=== PATIENT | male | born 1950 | race Caucasian/White ===

== ENCOUNTER 2019-01-12 18:14 | Inpatient (IN) | payer MEDICARE, MEDICAID ==
[~2019-01-12] VITALS: Ht 177.8 cm; Wt 92.5 kg
[~2019-01-12 18:14] MED LIST: AZIT250T PO; LEVO500T80 PO; NYST1000 PO; PRD20T PO
--- OUTSIDE RECORDS SUMMARY | 2019-01-12 18:20 | XMS REPORT ---
Author Author AARON MRA Organization [facility] [address] Address [address] [place] [address] Care Team Providers Care Contract Processor Name Role Phone AARON MAR Unavailable PROBLEMS Type Condition ICD9-CM Code [id number] Code Onset Dates Condition Status SNOMED Code Problem Essential hypertension I10 Active 13358364 Problem COPD mixed type J44.9 Active 26732562 ALLERGIES No Information ENCOUNTERS Encounter Location Date Diagnosis [facility] [address] [place] [phone] Jun, [facility] [address] [place] [phone] Jun, Essential hypertension I10 ; COPD mixed type J44.9 and Encounter for immunization Z23 [facility] [address] [place] [phone] Apr, Dental examination Z01.20 [facility] [address] [place] [phone] January, [facility] [address] [place] [phone] January, Dental examination Z01.20 [facility] [address] [place] [phone] Dec, Dental examination Z01.20 [facility] [address] [place] [phone] Dec, Dental examination Z01.20 [facility] [address] [place] [phone] Dec, Dental examination Z01.20 [facility] [address] [place] [phone] Dec, Dental examination Z01.20 [facility] [address] [place] [phone] Dec, Dental examination Z01.20 and Dental caries on pit and fissure surface penetrating into pulp K02.53 IMMUNIZATIONS No Known Immunizations SOCIAL HISTORY Never Assessed REASON FOR VISIT PLAN OF CARE VITAL SIGNS MEDICATIONS Unknown Medications RESULTS No Results PROCEDURES No Known procedures INSTRUCTIONS MEDICATIONS ADMINISTERED No Known Medications MEDICAL (GENERAL) HISTORY Type Description Date Medical History high blood pressure Medical History diabetes type 2 - past condition and not medicated for Medical History emphysema Medical History COPD Medical History Asthma-As a child Medical History Pneumonia in last 5 years Medical History Heart murmur Surgical History No Surgical history information Hospitalization History Pneumonia november 2015 Hospitalization History [facility] 2 weekss ago copd was acting up, signs of a heart attack ekg came back good. 2018
--- OUTSIDE RECORDS SUMMARY | 2019-01-12 18:20 | XMS REPORT ---
Author Author AARON MAR Organization [facility] [address] Address [address] [place] [address] Care Team Providers Care Anchorman Name Role Phone AARON MAR Unavailable PROBLEMS Type Condition ICD9-CM Code [id number] Code Onset Dates Condition Status SNOMED Code Problem Essential hypertension I10 Active 13004096 Problem COPD mixed type J44.9 Active 70144603 ALLERGIES Substance Reaction Event Type Date Status Iodine Unknown Drug Allergy Jun, Active ENCOUNTERS Encounter Location Date Diagnosis [facility] [address] [place] [phone] Jun, [facility] [address] [place] [phone] Jun, Essential hypertension I10 ; COPD mixed type J44.9 and Encounter for immunization Z23 [facility] [address] [place] [phone] Apr, Dental examination Z01.20 [facility] [address] [place] [phone] January, [facility] [address] [place] [phone] January, Dental examination Z01.20 [facility] [address] [place] [phone] Dec, [facility] [place] [address] [place] [phone] Dec, [facility]20 [facility] [address] [place] [phone] Dec, Dental examination Z01.20 [facility] [address] [place] [phone] Dec, Dental examination Z01.20 [facility] [address] [place] [phone] Dec, Dental examination Z01.20 and Dental caries on pit and fissure surface penetrating into pulp K02.53 IMMUNIZATIONS Vaccine Route Administration Date Status FLULAVAL QUAD 0.5ML (6 MO & UP) 2017 IM Intramuscular Jul 18, 2018 Administered SOCIAL HISTORY Never Assessed REASON FOR VISIT [facility], [facility] PLAN OF CARE Activity Details Follow Up prn Reason: VITAL SIGNS Weight 155.5 lbs 2018-07-18 Temperature 98.0 degrees Fahrenheit 2018-07-18 Heart Rate 89 bpm 2018-07-18 Respiratory Rate 20 2018-07-18 Blood pressure systolic 144 mmHg 2018-07-18 Blood pressure diastolic 92 mmHg 2018-07-18 MEDICATIONS Medication Instructions Dosage Frequency Start Date End Date Duration Status Magic Mouthwash Apply medicated swab to sore areas of the mouth to numb the pain As needed Dip cotton swab into medication Apr, As needed Not-Taking Aspirin Active Lisinopril Active Zithromax Z-Regino 2 L/NC Orally Once a day 2 tabs day one and then one tab daily for 4 more days 24h Jun, Jun, 5 day(s) Active Advair HFA Active Pantoprazole Sodium Active PredniSONE 20 mg Orally Once a day 2 tablets 24h Jun, Jun, 5 days Active Hampton 7.5-325 MG Orally every 6 hrs 1 tablet as needed 6h Apr, Active Digoxin Not-Taking Amoxicillin 500 MG Orally 4 times a day 2 capsules stat and then take 1 capsule 6h 10 days Not-Taking Ipratropium-Albuterol Active Combivent Respimat Active Atenolol Active RESULTS No Results PROCEDURES Procedure Date Ordered Result Body Site FLULAVAL QUAD 0.5ML (6 MO & UP) 2018 Jul 18, 2018 [facility] FLU VAC NO FEE SCHED SAME DAY Jul 18, 2018 [facility] VISIT NEW PATIENT Jul 18, 2018 SINGLE IMMUNIZATION ADMIN Jul 18, 2018 INSTRUCTIONS MEDICATIONS ADMINISTERED No Known Medications MEDICAL [...] a heart attack ekg came back good. 2017
--- OUTSIDE RECORDS SUMMARY | 2019-01-12 18:20 | XMS REPORT ---
Author Author BILLY HUERTAS [facility] [address] Address [address] [place] [address] Care Team Providers Care Geometry Teacher Name Role Phone BILLY HUERTAS Unavailable PROBLEMS Unknown Problems ALLERGIES ENCOUNTERS IMMUNIZATIONS No Known Immunizations SOCIAL HISTORY No smoking Hx information available REASON FOR VISIT PLAN OF CARE VITAL SIGNS MEDICATIONS RESULTS No Results PROCEDURES INSTRUCTIONS MEDICATIONS ADMINISTERED No Known Medications MEDICAL (GENERAL) HISTORY
--- OUTSIDE RECORDS SUMMARY | 2019-01-12 18:20 | XMS REPORT ---
Author Author AARON MAR Organization [facility] [address] Address [address] [place] [address] Care Team Providers Care Therapeutic Radiologist Name Role Phone AARON MAR Unavailable PROBLEMS Type Condition ICD9-CM Code [id number] Code Onset Dates Condition Status SNOMED Code Problem Panic attacks F41.0 Active 023652829 Problem COPD mixed type J44.9 Active 88487457 Problem Essential hypertension I10 Active 74254478 ALLERGIES No Information ENCOUNTERS Encounter Location Date Diagnosis [facility] [address] [place] [address] [place] [phone] Sep, [facility] [address] [place] [phone] Aug, Panic attacks F41.0 and Essential hypertension I10 [facility] [address] [place] [address] [place] [phone] Aug, [facility] [address] [place] [phone] Jul, [facility] [address] [place] [phone] Jun, [facility] [address] [place] [phone] Jun, Essential hypertension I10 ; COPD mixed type J44.9 and Encounter for immunization Z23 [facility] [address] [place] [address] [place] [phone] Apr, Dental examination Z01.20 [facility] [place] [address] [place] [phone] January, [facility] [place] [address] [place] [phone] January, Dental examination Z01.20 [facility] [place] [address] [place] [phone] Dec, Dental examination Z01.20 [facility] [place] [address] [place] [address] Dec, Dental examination Z01.20 [facility] [address] [place] [address] Dec, Dental examination Z01.20 [facility] [address] [place] [address] Dec, Dental examination Z01.20 [facility] [address] [place] [address] Dec, Dental examination Z01.20 and Dental caries on pit and fissure surface penetrating into pulp K02.53 IMMUNIZATIONS No Known Immunizations SOCIAL HISTORY Never Assessed REASON FOR VISIT Medication question PLAN OF CARE VITAL SIGNS MEDICATIONS Unknown [...]
--- OUTSIDE RECORDS SUMMARY | 2019-01-12 18:20 | XMS REPORT ---
Author Author AARON MAR Organization [facility] [address] Address [address] [place] [address] Care Team Providers Care Civil Structural Designer Name Role Phone AARON MAR Unavailable PROBLEMS Type Condition ICD9-CM Code OAX29-IS Code Onset Dates Condition Status SNOMED Code Problem Essential hypertension I10 Active 45145909 Problem COPD mixed type J44.9 Active 95117632 ALLERGIES No Information ENCOUNTERS Encounter Location Date Diagnosis [facility] [address] [place] [phone] Aug, [facility] [address] [place] [phone] Jul, [facility] [address] [place] [phone] Jun, [facility] [address] [place] [phone] Jun, Essential hypertension I10 ; COPD mixed type J44.9 and Encounter for [facility] Z[facility] [address] [place] [phone] Apr, Dental examination Z01.20 [facility] [address] [place] [phone] January, [facility] [address] [place] [phone] January, Dental examination Z01.20 [facility] [address] [place] [phone] Dec, Dental examination Z01.20 [facility] [address] [place] [phone] Dec, Dental examination Z01.20 [facility] [address] [place] [phone] Dec, Dental examination Z01.20 [facility] [address] [place] [phone] Dec, Dental examination Z01.20 [facility] [place] [address] [place] [address] Dec, Dental examination Z01.20 and Dental caries on pit and fissure surface penetrating into pulp K02.53 IMMUNIZATIONS No Known Immunizations SOCIAL HISTORY Never Assessed REASON FOR VISIT medication request PLAN OF CARE VITAL SIGNS MEDICATIONS Medication Instructions Dosage Frequency Start Date End Date Duration Status Aspirin Active Atenolol Active Pantoprazole Sodium Active Ipratropium-Albuterol Active Magic Mouthwash Apply medicated swab to sore areas of the mouth to numb the pain As needed Dip cotton swab into medication Apr, As needed Not-Taking Bolivar 7.5-325 MG Orally every 6 hrs 1 tablet as needed 6h Apr, Active Combivent Respimat Active Advair HFA Active Lisinopril Active Azithromycin 250 MG TAKE 2 TABLETS BY MOUTH ON DAY 1, THEN TAKE 1 TABLET DAILY BY MOUTH FOR 4 DAYS. 5 Active Amoxicillin 500 MG Orally 4 times a day 2 capsules stat and then take 1 capsule 6h 10 days Not-Taking Prozac 20 MG Orally Once a day 1 capsule 24h Jul, 30 day(s) Active Digoxin Not-Taking RESULTS No Results PROCEDURES No Known procedures [...]
--- OUTSIDE RECORDS SUMMARY | 2019-01-12 18:20 | XMS REPORT ---
Author Author AARON MAR Organization [facility] [address] Address [address] [place] [address] Care Team Providers Care Alterations Supervisor Name Role Phone AARON MAR Unavailable PROBLEMS Type Condition ICD9-CM Code [id number]-EH Code Onset Dates Condition Status SNOMED Code Problem Panic attacks F41.0 Active 246363636 Problem COPD mixed type J44.9 Active 55818899 Problem Essential hypertension I10 Active 02546061 ALLERGIES No Information ENCOUNTERS Encounter Location Date Diagnosis [facility] [address] [place] [phone] Sep, [facility] [address] [facility] [id number] [address] Aug, [facility] [address] [place] [phone] Aug, Panic attacks F41.0 and Essential hypertension I10 [facility] [address] [place] [phone] Aug, [facility] [address] [place] [phone] Jul, [facility] [address] [place] [phone] Jun, [facility] [address] [place] [phone] Jun, Essential hypertension I10 ; COPD mixed type J44.9 and Encounter for immunization Z23 [facility] [address] [place] [phone] Apr, Dental examination Z01.20 [facility] [address] [place] [phone] January, [facility] [address] [place] [phone] January, Dental examination Z01.20 [facility] [address] [place] [address] Dec, Dental examination Z01.20 [facility] [address] [place] [address] Dec, Dental examination Z01.20 [facility] [address] [place] [address] Dec, Dental examination Z01.20 [facility] [address] [place] [address] Dec, Dental examination Z01.20 [facility] [address] [place] [address] Dec, Dental examination Z01.20 and Dental caries on pit and fissure surface penetrating into pulp K02.53 IMMUNIZATIONS No Known Immunizations SOCIAL HISTORY Never Assessed REASON FOR VISIT Requests return call PLAN OF CARE VITAL SIGNS MEDICATIONS Unknown [...]
--- OUTSIDE RECORDS SUMMARY | 2019-01-12 18:21 | XMS REPORT ---
Author Author BILLY HUERTAS Organization [facility] Address [address] [place] [address] Care Team Providers Care Lard Refiner Name Role Phone BILLY HUERTAS Unavailable PROBLEMS Unknown Problems ALLERGIES No Information ENCOUNTERS Encounter Location Date Diagnosis [facility] [address] [place] [phone] January, [address] [address] January, Dental examination Z01.20 [facility] [address] [place] [phone] Dec, Dental examination Z01.[address] [address] Dec, Dental examination Z01.20 [facility] [address] [place] [phone] Dec, Dental examination Z01.[address] [address] Dec, Dental examination Z01.[address] [address] Dec, Dental examination Z01.20 and Dental caries on pit and fissure surface penetrating into pulp K02.53 IMMUNIZATIONS No Known Immunizations SOCIAL HISTORY Never Assessed REASON FOR VISIT PLAN OF CARE VITAL SIGNS MEDICATIONS Medication Instructions Dosage Frequency Start Date End Date Duration Status Amoxicillin 500 MG Orally 4 times a day 2 capsules stat and then take 1 capsule 6h 10 days Active RESULTS No Results PROCEDURES No Known procedures INSTRUCTIONS MEDICATIONS ADMINISTERED No Known Medications MEDICAL (GENERAL) HISTORY Type Description Date Medical History high blood pressure Medical History diabetes type 2 - past condition and not medicated for Medical History emphysema Medical History COPD Medical History Asthma-As a child Medical History Pneumonia in last 5 years Medical History Heart murmur Hospitalization History Pneumonia november 2015
--- OUTSIDE RECORDS SUMMARY | 2019-01-12 18:21 | XMS REPORT ---
Author Author AARTI LU [facility] Address [address] [place] [address] Care Team Providers Care Talent Development Coordinator Name Role Phone LU BROUSSARD Unavailable PROBLEMS Unknown Problems ALLERGIES Substance Reaction Event Type Date Status Iodine Unknown Drug Allergy January, Active ENCOUNTERS Encounter Location Date Diagnosis [address] [phone] January, [address] [address] January, Dental examination Z01.[address] [address] Dec, Dental examination Z01.[address] [address] Dec, Dental examination Z01.[address] [address] Dec, Dental examination Z01.[address] [address] Dec, Dental examination Z01.[address] [address] Dec, Dental examination Z01.20 and Dental caries on pit and fissure surface penetrating into pulp K02.53 IMMUNIZATIONS No Known Immunizations SOCIAL HISTORY Never Assessed REASON FOR VISIT [facility] PLAN OF CARE Activity Details Follow Up 1 hour multiple extractions (left side or right) Reason: VITAL SIGNS Blood pressure systolic 122 mmHg 2018-02-13 Blood pressure diastolic 85 mmHg 2018-02-13 MEDICATIONS Medication Instructions Dosage Frequency Start Date End Date Duration Status Atenolol Active Digoxin Active Advair HFA Active Combivent Respimat Active Pantoprazole Sodium Active Ipratropium-Albuterol Active Aspirin Active Lisinopril Active RESULTS No Results PROCEDURES Procedure Date Ordered Result Body Site COMP ORAL EVALUATION - NEW/EST PT February 13, 2018 PANORAMIC FILM SEE ALSO CODE [id number] February 13, 2018 INSTRUCTIONS MEDICATIONS ADMINISTERED No Known Medications [...]
[2019-01-12 19:20] LABS: BASOPHILS % (AUTO) 0 % (0-10); EOSINOPHILS # (AUTO) 0.1 10^3/uL (0.0-0.3); EOSINOPHILS % (AUTO) 1 % (0-10); HEMATOCRIT 49 % (40-54); HEMOGLOBIN 15.4 G/DL (13.3-17.7); LYMPHOCYTES # (AUTO) 1.8 X 10^3 (1.0-4.0); LYMPHOCYTES % (AUTO) 9 % (12-44); MEAN CORPUSCULAR HEMOGLOBIN 29 PG (25-34); MEAN CORPUSCULAR HGB CONC 32 G/DL (32-36); MEAN CORPUSCULAR VOLUME 91 FL (80-99); MEAN PLATELET VOLUME 9.2 FL (7.4-10.4); MONOCYTES # (AUTO) 1.2 X 10^3 (0.0-1.0); MONOCYTES % (AUTO) 6 % (0-12); NEUTROPHILS % (AUTO) 84 % (42-75); PLATELET COUNT 446 10^3/uL (130-400); RED CELL DISTRIBUTION WIDTH 14.8 % (10.0-14.5); WHITE BLOOD COUNT 20.2 10^3/uL (4.3-11.0)
--- NOTE | 2019-01-12 19:30 | NUR ---
SEE CURRENT LIST FOR MEDICATIONS.
[2019-01-12 19:31] LABS: PROTHROMBIN TIME PATIENT 13.5 SEC (12.2-14.7)
[2019-01-12 19:37] LABS: BAND NEUTROPHILS 0 %; BASOPHILS % (MANUAL) 0 %; EOSINOPHILS % (MANUAL) 1 %; LYMPHOCYTES % (MANUAL) 7 %; MONOCYTES % (MANUAL) 1 %; NEUTROPHILS % (MANUAL) 91 %; RBC MORPH NORMAL
--- NOTE | 2019-01-12 19:37 | ED Cardiac General ---
History of Present Illness General Chief Complaint: Cardiac/General Problems Stated Complaint: COPD/POSS HEART BLOCK Source: patient, spouse Exam Limitations: no limitations History of Present Illness Date Seen by Provider: Jan 12, 2019 Time Seen by Provider: 19:05 Initial Comments The patient presents to ER by private conveyance with his with chief complaint that he was called by his primary care doctor Dr. Mar from [facility] and told that he can either go to [place] or [facility] since he's living closer to here but he had some concerning labs. A week ago he went to the ER in [place] and was diagnosed with a pneumonia he was having fevers cough was productive shortness of breath. He has a history of COPD and is dependent on oxygen. He does not have a procurement buyer to have a history of coronary artery disease but he does have a history of CHF. Most of this history is through the paperwork that accompanies him to the fax machine and from a phone conversation with Dr. Mar. Patient said he was not having any chest pain 6 days ago Tuesday and was put on Levaquin and sent home. He says he began to feel better but was having some intermittent chest pain throughout the week. No chest pain right now. No nausea vomiting and his shortness of breath is back to baseline. His cough is improved significantly. His baseline creatinine is 2.0 and his white count on Tuesday was 29,000 and his troponin was 0.2 per phone report. It was felt at the time that his troponin was elevated due to his chronic kidney disease and so he was sent home for outpatient therapy. Records were received at the primary care doctor's office Tuesday, 2 days ago and the patient was in the office yesterday. He was feeling fine but Dr. Mo repeated labs and saw that the white count went down to 16,000. His creatinine was stable and the troponin went up to 0.4. This is when he called the patient today and asked him to go to the nearest ER. Patient's having no chest pain now nor does it nausea sweats chills. He says he is feeling much better. Apparently last week his BNP was 3200. He had a perihilar infiltrate on the chest x-ray from the ER and some congestive heart failure changes. Primary care says is new to him and he does not have a previous echocardiogram or baseline BNP. Allergies and Home Medications Allergies Coded Allergies: iodine (Verified Adverse Reaction, Unknown, 01/12/19) Patient Home Medication List Home Medication List Reviewed: Yes Review of Systems Review of Systems Constitutional: No chills, No fever, No malaise EENTM: No Blurred Vision, No Double Vision Respiratory: Cough, Shortness of Air (At baseline); Denies Wheezing Cardiovascular: Chest Pain (Intermittent but not presently midline does not radiate); Denies Edema Gastrointestinal: Denies Abdomen Distended, Denies Abdominal Pain Genitourinary: Denies Burning, Denies Discharge Musculoskeletal: No back pain, No joint pain Skin: No pruritus, No rash Past Qkxuukm-Bxqrlm-Dpwrpv Hx Patient Social History Alcohol Use: Denies Use Recreational Drug Use: No Smoking Status: Current Everyday Smoker Type Used: Cigarettes 2nd Hand Smoke Exposure: Yes Recent Foreign Travel: No Contact w/Someone Who Travel: No Recent Hopitalizations: No Seasonal Allergies Seasonal Allergies: Yes Past Medical History Surgeries: Yes (TENDON REPAIR ) Gallbladder Respiratory: Yes Asthma, Pneumonia, COPD Currently Using CPAP: Yes Currently Using BIPAP: No Cardiac: Yes Hypertension Neurological: No Genitourinary: Yes Kidney Stones Gastrointestinal: No Musculoskeletal: No Endocrine: No Are Your Blood Sugars Over 250: No HEENT: No Cancer: No Psychosocial: Yes Anxiety Integumentary: No Blood Disorders: No Adverse Reaction/Blood Tranf: No Physical Exam Vital Signs Vital Signs - First Documented 01/12/19 19:00 Temp 97.6 Pulse 71 Resp 17 B/P (MAP) 186/120 (142) Pulse Ox 98 O2 Delivery Nasal Cannula O2 Flow Rate 2.00 Capillary Refill : Less Than 3 Seconds Height, Weight, BMI Height: '" Weight: lbs. oz. kg; BMI Method: General Appearance: No Apparent Distress, Anxious, Chronically ill HEENT: PERRL/EOMI, Pharynx Normal, Moist Mucous Membranes Neck: Full Range of Motion, Normal Inspection Respiratory: Chest Non Tender, No Accessory Muscle Use, No Respiratory Distress , Decreased Breath Sounds, Wheezing (faint) Cardiovascular: Regular Rate, Rhythm, No Edema, No Murmur, Normal Peripheral Pulses Gastrointestinal: Normal Bowel Sounds, No Organomegaly, Non Tender, Soft Extremity: Normal Capillary Refill, Normal Inspection, No Pedal Edema Neurologic/Psychiatric: Alert, Oriented x3 Progress/Results/Core Measures Results/Orders Lab Results Laboratory Tests Test 01/12/19 19:05 Range/Units White Blood Count 20.2 H 4.3-11.0 10^3/uL Red Blood Count 5.39 4.35-5.85 10^6/uL Hemoglobin 15.4 13.3-17.7 G/DL Hematocrit 49 40-54 % Mean Corpuscular Volume 91 80-99 FL Mean Corpuscular Hemoglobin 29 25-34 PG Mean Corpuscular Hemoglobin Concent 32 32-36 G/DL Red Cell Distribution Width 14.8 H 10.0-14.5 % Platelet Count 446 H 130-400 10^3/uL Mean Platelet Volume 9.2 7.4-10.4 FL Neutrophils (%) (Auto) 84 H 42-75 % Lymphocytes (%) (Auto) 9 L 12-44 % Monocytes (%) (Auto) 6 0-12 % Eosinophils (%) (Auto) 1 0-10 % Basophils (%) (Auto) 0 0-10 % Neutrophils # (Auto) 17.0 H 1.8-7.8 X 10^3 Lymphocytes # (Auto) 1.8 1.0-4.0 X 10^3 Monocytes # (Auto) 1.2 H 0.0-1.0 X 10^3 Eosinophils # (Auto) 0.1 0.0-0.3 10^3/uL Basophils # (Auto) 0.0 0.0-0.1 10^3/uL Neutrophils % (Manual) 91 % Lymphocytes % (Manual) 7 % Monocytes % (Manual) 1 % Eosinophils % (Manual) 1 % Basophils % (Manual) 0 % Band Neutrophils 0 % Blood Morphology Comment NORMAL Prothrombin Time 13.5 12.2-14.7 SEC INR Comment 1.0 0.8-1.4 Activated Partial Thromboplast Time 39 H 24-35 SEC Sodium Level 144 135-145 MMOL/L Potassium Level 3.5 L 3.6-5.0 MMOL/L Chloride Level 97 L 98-107 MMOL/L Carbon Dioxide Level 33 H 21-32 MMOL/L Anion Gap 14 5-14 MMOL/L Blood Urea Nitrogen 34 H 7-18 MG/DL Creatinine 1.95 H 0.60-1.30 MG/DL Estimat Glomerular Filtration Rate 34 BUN/Creatinine Ratio 17 Glucose Level 98 70-105 MG/DL Calcium Level 9.7 8.5-10.1 MG/DL Corrected Calcium 9.9 8.5-10.1 MG/DL Magnesium Level 1.9 1.8-2.4 MG/DL Total Bilirubin 0.2 0.1-1.0 MG/DL Aspartate Amino Transf (AST/SGOT) 14 5-34 U/L Alanine Aminotransferase (ALT/SGPT) 22 0-55 U/L Alkaline Phosphatase 91 40-136 U/L Total Creatine Kinase 64 30-200 U/L Myoglobin 187.5 H 10.0-92.0 NG/ML Troponin I 0.207 H <0.028 NG/ML B-Type Natriuretic Peptide 433.1 H <100.0 PG/ML Total Protein 7.7 6.4-8.2 GM/DL Albumin 3.8 3.2-4.5 GM/DL My Orders Orders - MCKENNA STEVENS Chest 1 View, Ap/Pa Only (01/12/19 19:14) Cefepime Injection (Maxipime Injection) (01/12/19 20:00) Enoxaparin Injection (Lovenox Injection) (01/12/19 20:15) Aspirin Chewable Tablet (Baby Aspirin Ch (01/12/19 20:15) Ticagrelor Tablet (Brilinta Tablet) (01/12/19 20:15) Labetalol Injection (Normodyne Injection (01/12/19 20:15) Amlodipine Tablet (Norvasc Tablet) (01/12/19 20:15) Ed Iv/Invasive Line Start (01/12/19 20:47) Ns Iv 500 Ml (Sodium Chloride 0.9%) (01/12/19 20:47) Ns Iv 1000 Ml (Sodium Chloride 0.9%) (01/12/19 20:47) Medications Given in ED Current Medications Medications Dose Ordered Sig/Jessenia Route Start Time Stop Time Status Last Admin Dose Admin Amlodipine Besylate 5 mg ONCE ONCE PO 01/12/19 20:15 01/12/19 20:16 DC 01/12/19 20:15 5 MG Aspirin 324 mg ONCE ONCE PO 01/12/19 20:15 01/12/19 20:16 DC 01/12/19 20:14 324 MG Cefepime HCl 1000 mg/Sterile Water 10 ml @ 200 mls/hr ONCE ONCE IV 01/12/19 20:00 01/12/19 20:02 DC 01/12/19 20:16 200 MLS/HR Enoxaparin Sodium 70 mg ONCE ONCE SC 01/12/19 20:15 01/12/19 20:16 DC 01/12/19 20:15 70 MG Labetalol HCl 20 mg ONCE ONCE IV 01/12/19 20:15 01/12/19 20:16 DC 01/12/19 20:15 20 MG Ticagrelor 180 mg ONCE ONCE PO 01/12/19 20:15 01/12/19 20:16 DC 01/12/19 20:15 180 MG Vital Signs/I&O 01/12/19 01/12/19 19:00 19:00 Temp 97.6 Pulse 71 Resp 17 B/P (MAP) 186/120 (142) Pulse Ox 98 98 O2 Delivery Nasal Cannula Nasal Cannula O2 Flow Rate 2.00 3.00 Progress Progress Note : Time: 19:49 Progress Note Concerning the possibility of a PE or [place] exists. A repeat labs and if they concur with what information was told over the phone and we would put him on anticoagulation. 324 mg of aspirin now. Here to take his aspirin and blood pressure medicines this morning and his blood pressure does not level and give him something to bring it down a little. He is not having any chest pain right now so probably not use nitroglycerin. His EKG has a lot of artifact and it as well as widened QRS possible right bundle branch block. Initial ECG Impression Date: Jan 12, 2019 Initial ECG Impression Time: 19:06 Initial ECG Rate: 70 Initial ECG Rhythm: Normal Sinus Initial ECG Intervals: Normal Initial ECG Impression: Nonspecific Changes Initial ECG Comparisson: No Previous ECG Available Comment Possible right bundle-branch block. There is some artifact from movement or breathing. No significant ST elevation or depression noted. Diagnostic Imaging Diagonstic Imaging: Xray Plain Films/CT/US/NM/MRI: chest (1v) Comments NAME: [facility] REC#: [id number] PHYSICIAN: MCKENNA STEVENS MD CC: DAVID RODRIGUEZ MD; MCKENNA STEVENS Page 2 of 2 RADIOLOGY REPORT [facility] [place] CC: DAVID RODRIGUEZ MD; MCKENNA STEVENS Page 1 of 1 RADIOLOGY REPORT NAME: [facility] REC#: [id number] PT STATUS: REG ER : 1950 PHYSICIAN: MCKENNA STEVENS MD ADMIT DATE: 01/12/19/ER Signed Date of Exam: 01/12/19 CHEST 1 VIEW, AP/PA ONLY INDICATION: Chest pain. EXAMINATION: Portable erect AP chest at 7:24 p.m. COMPARISON: There are no prior studies available for comparison. FINDINGS: The heart is mildly enlarged. The descending thoracic aorta is tortuous. There are coarse interstitial densities in both lung bases and crowded bronchovascular markings in the right infrahilar region. I suspect these findings are chronic in nature. If previous studies are available, they would be helpful for comparison. There is no consolidated pneumonia identified. There is no evidence for overt failure either. There is blunting of the right costophrenic angle but this may be related to pleural thickening as opposed to pleural fluid. The mediastinum is not widened. The osseous structures are intact IMPRESSION: The coarse interstitial densities in the lung bases, the crowded bronchovascular markings in the right infrahilar region and the blunting of the right costophrenic angle are most likely chronic in nature. If previous exams are available they would be helpful for comparison. If there are no prior studies available for comparison and clinical concern regarding an acute abnormality persists, then a followup PA and lateral chest would be recommended. Dictated by: Dictated on workstation # [id number] Dict: 01/12/191938 Trans: 01/12/191944 Interpreted by: DAVID RODRIGUEZ MD Electronically signed by: DAVID RODRIGUEZ MD 01/12/191944 Reviewed: Reviewed by Me Departure Communication (Admissions) Time/Spoke to Admitting Phy: 20:41 Discussed case lab EKG imaging findings with Dr. Ruiz and she agrees to accept the patient. Time/Spoke to Consulting Phy: 19:52 Discussed the case with Dr. Chatman and he agrees the patient is admitted and a serial troponin in the morning. Echocardiogram and Brilinta. No plan to catheter until blood cultures are negative and medicine team to 0 okay that the patient does not have an active infection. Lovenox. Increase amlodipine to 10 mg repeat troponin the morning and 90 mg twice a day on the Brilinta. Impression Primary Impression: NSTEMI (non-ST elevated myocardial infarction) Additional Impressions: Pneumonia Qualified Codes: J18.9 - Pneumonia, unspecified organism COPD (chronic obstructive pulmonary disease) Qualified Codes: J44.0 - Chronic obstructive pulmonary disease with acute lower respiratory infection Disposition: ADMITTED INPATIENT Condition: Stable Admissions Decision to Admit Reason: Admit from ER (General) Decision to Admit/Date: Jan 12, 2019 Time/Decision to Admit Time: 19:40 Departure-Patient Inst. Referrals: AARON MAR MD (PCP/Family) Primary Care Physician MCKENNA STEVENS Jan 12, 2019 19:37
--- NOTE | 2019-01-12 19:44 | Diagnostic Imaging Report ---
INDICATION: Chest pain. EXAMINATION: Portable erect AP chest at 7:24 p.m. COMPARISON: There are no prior studies available for comparison. FINDINGS: The heart is mildly enlarged. The descending thoracic aorta is tortuous. There are coarse interstitial densities in both lung bases and crowded bronchovascular markings in the right infrahilar region. I suspect these findings are chronic in nature. If previous studies are available, they would be helpful for comparison. There is no consolidated pneumonia identified. There is no evidence for overt failure either. There is blunting of the right costophrenic angle but this may be related to pleural thickening as opposed to pleural fluid. The mediastinum is not widened. The osseous structures are intact IMPRESSION: The coarse interstitial densities in the lung bases, the crowded bronchovascular markings in the right infrahilar region and the blunting of the right costophrenic angle are most likely chronic in nature. If previous exams are available they would be helpful for comparison. If there are no prior studies available for comparison and clinical concern regarding an acute abnormality persists, then a followup PA and lateral chest would be recommended. Dictated by: Dictated on workstation # [id number]
[2019-01-12 19:45] LABS: ALBUMIN 3.8 GM/DL (3.2-4.5); BILIRUBIN,TOTAL 0.2 MG/DL (0.1-1.0); CALCIUM 9.7 MG/DL (8.5-10.1); CREATININE SERUM 1.95 MG/DL (0.60-1.30); MAGNESIUM 1.9 MG/DL (1.8-2.4); POTASSIUM 3.5 MMOL/L (3.6-5.0); TOTAL PROTEIN 7.7 GM/DL (6.4-8.2)
[2019-01-12] MEDS ORDERED: CEFEPIME INJECTION 1,000 MG in WATER (STERILE) FOR INJECTION 10 ML IV ONE (20:00)
[2019-01-12] MEDS ORDERED: ASPIRIN 81 MG CHEW (CHILDREN'S ASA) PO ONE (20:15)
[2019-01-12] MEDS ORDERED: TICAGRELOR 90 MG TABLET (BRILINTA) PO ONE (20:15)
[2019-01-12] MEDS ORDERED: ENOXAPARIN 80 MG/0.8 ML (LOVENOX) SYR SC ONE (20:15)
[2019-01-12] MEDS ORDERED: amLODIPine 5 MG (NORVASC) TAB PO ONE (20:15)
[2019-01-12] MEDS ORDERED: LABETALOL HCL 20 MG/4 ML VIAL IV ONE (20:15)
[2019-01-12] MEDS ORDERED: NS IV 1000 ML 1,000 ML IV SCH (20:47)
[2019-01-12] MEDS ORDERED: NS IV 500 ML 500 ML IV ONE (20:47)
[2019-01-12] MEDS ORDERED: meTOprolol SUCCINATE 100 MG (TOPROL XL) TAB PO ONE (21:15)
[2019-01-12] MEDS ORDERED: LORazepam INJ 2 MG/ML (ATIVAN) VIAL IVP ONE (21:45)
[2019-01-12 22:00] VITALS: BP 176/123
[2019-01-12] MEDS ORDERED: ONDANSETRON 4 MG/2 ML (SDV) Z0FRAN IV PRN (22:00)
[2019-01-12] MEDS ORDERED: ACETAMINOPHEN 500 MG TAB (TYLENOL) PO PRN (22:00)
[2019-01-12 22:15] VITALS: BP 192/120
[2019-01-12] MEDS ORDERED: ALPRAZolam 0.5 MG (XANAX) TAB PO PRN (22:15)
[2019-01-12] MEDS ORDERED: NITROGLYCERIN 0.4 MG SL TABS BTL 25'S SL PRN (22:15)
[2019-01-12] MEDS ORDERED: morphine INJ 4 MG/ML 1 ML (VIAL/SYRINGE) IV PRN (22:15)
[2019-01-12 22:30] VITALS: BP 191/118
[2019-01-12] MEDS: LACTATED RINGERS 1,000 ML IV SCH (22:32)
[2019-01-12] MEDS: AZITHROMYCIN INJECTION 500 MG in NS (IVPB) 250 ML IV SCH (22:32)
[2019-01-12 22:47] VITALS: BP 197/117
--- NOTE | 2019-01-12 23:00 | NUR ---
PT'S B/P 197/117, O2 SAT DROPPING INTO 80'S ON 6 L NC, AND PT IS VERY ANXIOUS AND UNCOOPERATIVE AT THIS TIME. PT TRYING TO GET OUT OF BED UNASSISTED TO URINATE. PT IS VERY UNSTABLE ON HIS FEET AND NOT FOLLOWING DIRECTIONS TO SIT BACK DOWN IN THE BED FOR HIS SAFETY. PT'S AT BEDSIDE REPORTS THIS IS NOT HIS NORMAL MENTATION. MORE RN'S CALLED TO ROOM AT THIS TIME TO HELP ASSIST PT INTO BED. DR. ARELLANO CALLED AND PT MADE ICU STATUS. PT TRANSFERRED TO ICU-6. PT CONTINUES TO TRY AND GET OUT OF BED TO URINATE, MEANWHILE PULLING AT ALL MONITOR CORDS AND URINATING DOWN HIS PANTS AND ON FLOOR. E-ICU NOTIFIED OF PT'S ADMISSION, CURRENT VITAL SIGNS AND UNCOOPERATIVE/ANXIOUS BEHAVIOR. ABG DRAWN AND TORRES CATHETER INSERTED WITHOUT DIFFICULTY. SEE ORDER HISTORY FOR NEW ORDERS FROM E-ICU. PT'S UPDATED ON PLAN OF CARE. BED ALARM SET AND BED IN LOWEST POSITION AT THIS TIME. WILL CONTINUE TO MONITOR.
[2019-01-12 23:14] LABS: ABG BASE EXCESS 7.3 MMOL/L (-2.5-2.5); ABG OXYGEN SATURATION 98 % (94-100); ABG PO2 113 MMHG (79-93); ABG TCO2 36.1 MMOL/L (21.0-31.0)
[2019-01-12 23:15] LABS: ABG PH 7.29 (7.37-7.43)
[2019-01-12 23:16] LABS: ABG PCO2 73 MMHG (35-45); ALLENS TEST YES-POS; INSPIRED O2 5L; PATIENT TEMP 97.9; VENTILATOR NO
[2019-01-12] MEDS ORDERED: FUROSEMIDE 40 MG/4 ML INJ (LASIX) ONE (23:25)
[2019-01-12] MEDS ORDERED: LIDOCAINE UROJET 2% GEL 10 ML PKG ONE (23:25)
[2019-01-12] MEDS ORDERED: hydrALAZINE (APESOLINE) 20 MG/ML VIAL ONE (23:25)
[2019-01-12 23:30] VITALS: BP 190/116
[2019-01-12] MEDS: LORazepam INJ 2 MG/ML (ATIVAN) VIAL IVP PRN (23:35)
[2019-01-12 23:40] VITALS: BP 190/110
[2019-01-12] MEDS ORDERED: hydrALAZINE (APESOLINE) 20 MG/ML VIAL IV ONE (23:45)
[2019-01-12] MEDS ORDERED: FUROSEMIDE 40 MG/4 ML INJ (LASIX) IVP ONE (23:45)
[2019-01-12] MEDS ORDERED: LORazepam INJ 2 MG/ML (ATIVAN) VIAL ONE (23:55)
[2019-01-13] VITALS (27 sets, daily range): BP systolic 94–168; BP diastolic 67–114
[2019-01-13] MEDS: LORazepam INJ 2 MG/ML (ATIVAN) VIAL IVP PRN (00:12)
[2019-01-13] MEDS ORDERED: NS (IVPB) 50 ML ONE (00:48)
[2019-01-13 00:55] LABS: ABG BASE EXCESS 8.5 MMOL/L (-2.5-2.5); ABG OXYGEN SATURATION 99 % (94-100); ABG PCO2 67 MMHG (35-45); ABG PO2 128 MMHG (79-93); ABG TCO2 36.6 MMOL/L (21.0-31.0)
[2019-01-13 00:57] LABS: ABG PH 7.33 (7.37-7.43); ALLENS TEST YES-POS; INSPIRED O2 45%; PATIENT TEMP 97.5; VENTILATOR NO
[2019-01-13 01:29] LABS: BASOPHILS % (AUTO) 0 % (0-10); EOSINOPHILS # (AUTO) 0.5 10^3/uL (0.0-0.3); EOSINOPHILS % (AUTO) 2 % (0-10); HEMATOCRIT 43 % (40-54); HEMOGLOBIN 13.5 G/DL (13.3-17.7); LYMPHOCYTES # (AUTO) 2.2 X 10^3 (1.0-4.0); LYMPHOCYTES % (AUTO) 12 % (12-44); MEAN CORPUSCULAR HEMOGLOBIN 28 PG (25-34); MEAN CORPUSCULAR HGB CONC 31 G/DL (32-36); MEAN CORPUSCULAR VOLUME 91 FL (80-99); MONOCYTES # (AUTO) 1.1 X 10^3 (0.0-1.0); MONOCYTES % (AUTO) 6 % (0-12); NEUTROPHILS # (AUTO) 14.6 X 10^3 (1.8-7.8); NEUTROPHILS % (AUTO) 79 % (42-75); PLATELET COUNT 385 10^3/uL (130-400); RED CELL DISTRIBUTION WIDTH 14.8 % (10.0-14.5); WHITE BLOOD COUNT 18.4 10^3/uL (4.3-11.0)
[2019-01-13] MEDS ORDERED: HYDROCORTISONE 100 MG/2 ML (Solu-CORTEF) VIAL IV ONE (01:30)
[2019-01-13] MEDS ORDERED: RT-ALBUTEROL/IPRATROPIUM 3 ML (DUONEB) VIAL INH PRN (01:45)
[2019-01-13] MEDS: RT-ALBUTEROL/IPRATROPIUM 3 ML (DUONEB) VIAL INH SCH ×6 (01:47→21:35)
[2019-01-13 01:48] LABS: ALBUMIN 3.1 GM/DL (3.2-4.5); BILIRUBIN,TOTAL 0.2 MG/DL (0.1-1.0); CALCIUM 8.8 MG/DL (8.5-10.1); CREATININE SERUM 1.74 MG/DL (0.60-1.30); MAGNESIUM 1.6 MG/DL (1.8-2.4); PHOSPHORUS 3.2 MG/DL (2.3-4.7); POTASSIUM 3.4 MMOL/L (3.6-5.0); TOTAL PROTEIN 5.9 GM/DL (6.4-8.2)
[2019-01-13 01:54] LABS: BILIRUBIN,URINE NEGATIVE (NEGATIVE); CLARITY,URINE CLEAR; COLOR,URINE YELLOW; GLUCOSE, URINE (UA) NEGATIVE (NEGATIVE); KETONES,URINE NEGATIVE (NEGATIVE); LEUKOCYTE ESTERASE ,URINE NEGATIVE (NEGATIVE); NITRITE,URINE NEGATIVE (NEGATIVE); PH,URINE 5 (5-9); PROTEIN,URINE 2+ (NEGATIVE); UROBILINOGEN,URINE NORMAL (NORMAL)
[2019-01-13 02:04] LABS: BACTERIA,URINE NEGATIVE /HPF; RBC,URINE 50-100 /HPF; SQUAMOUS EPITHELIAL CELL,UR 0-2 /HPF
[2019-01-13] MEDS: KCL 20 MEQ TAB (K-DUR) PO SCH (03:48)
[2019-01-13] MEDS: POTASSIUM CL 10MEQ/50ML IVPB 50 ML IV SCH ×7 (03:48→14:00)
[2019-01-13] MEDS: MAGNESIUM 1 GM/100 ML IVPB 100 ML IV SCH ×3 (03:48→05:38)
[2019-01-13] MEDS ORDERED: methylPREDNISolone 125 MG (Solu-MEDROL) VIAL IVP ONE (04:45)
--- NOTE | 2019-01-13 04:54 | Pulmonary Consultation ---
History of Present Illness History of Present Illness Date of Consultation 01/13/19 04:47 Date of Admission Allergies and Home Medications Allergies Coded Allergies: iodine (Verified Adverse Reaction, Unknown, 01/12/19) Past Ssxugnw-Xytzgo-Ayzhal Hx Patient Social History Alcohol Use: Denies Use Recreational Drug Use: No Smoking Status: Current Everyday Smoker Type Used: Cigarettes 2nd Hand Smoke Exposure: Yes Recent Foreign Travel: No Contact w/Someone Who Travel: No Recent Infectious Disease Expo: No Recent Hopitalizations: No Seasonal Allergies Seasonal Allergies: Yes Past Medical History Surgeries: Yes (TENDON REPAIR ) Gallbladder Respiratory: Yes Asthma, Pneumonia, COPD Currently Using CPAP: Yes Currently Using BIPAP: No Cardiac: Yes Hypertension Neurological: No Genitourinary: Yes Kidney Stones Gastrointestinal: No Musculoskeletal: No Endocrine: No Are Your Blood Sugars Over 250: No HEENT: No Cancer: No Psychosocial: Yes Anxiety Integumentary: No Blood Disorders: No Adverse Reaction/Blood Tranf: No Sepsis Event Evaluation Height, Weight, BMI Height: 5'10.00" Weight: 160lbs. oz. 72.546091mi; BMI Method:Stated Exam Exam Vital Signs Date Time Temp Pulse Resp B/P (MAP) Pulse Ox O2 Delivery O2 Flow Rate FiO2 01/13/19 04:00 63 20 108/77 (87) 95 NIV Bilevel 35.00 01/13/19 03:00 63 21 103/76 (85) 94 NIV Bilevel 35.00 01/13/19 02:00 63 23 94/67 (76) 95 NIV Bilevel 35.00 01/13/19 01:47 63 20 98 35.00 01/13/19 01:38 65 98 01/13/19 01:25 NIV Bilevel 35.00 01/13/19 01:00 64 19 95/75 (82) 97 NIV Bilevel 45.00 01/13/19 01:00 65 01/13/19 00:40 65 20 98 40.00 01/13/19 00:00 71 19 118/86 (97) 98 NIV Bilevel 45.00 01/13/19 00:00 98 NIV Bilevel 45 01/12/19 23:45 NIV Bilevel 45.00 01/12/19 23:40 67 22 96 45.00 01/12/19 23:30 67 23 190/116 (140) 90 Nasal Cannula 6.00 01/12/19 22:47 95.7 65 24 197/117 (143) 90 Nasal Cannula 6.00 01/12/19 22:30 68 31 191/118 (142) 95 Nasal Cannula 6.00 01/12/19 22:15 66 35 192/120 (144) 97 Nasal Cannula 6.00 01/12/19 22:00 75 30 176/123 (140) 90 Nasal Cannula 6.00 01/12/19 21:45 98.0 67 18 187/116 (139) 98 Nasal Cannula 3.00 01/12/19 19:00 97.6 71 17 186/120 (142) 98 Nasal Cannula 3.00 01/12/19 19:00 98 Nasal Cannula 2.00 I & O 01/13/19 07:00 Intake Total 10 ml Balance 10 ml Height & Weight Height: 5'10.00" Weight: 160lbs. oz. 72.758655mm; BMI Method:Stated General Appearance: No Apparent Distress, Anxious, Chronically ill HEENT: PERRL/EOMI, Pharynx Normal, Moist Mucous Membranes Neck: Full Range of Motion, Normal Inspection Respiratory: Chest Non Tender, No Accessory Muscle Use, No Respiratory Distress , Decreased Breath Sounds, Wheezing (faint) Cardiovascular: Regular Rate, Rhythm, No Edema, No Murmur, Normal Peripheral Pulses Capillary Refill: Less Than 3 Seconds Extremity: Normal Capillary Refill, Normal Inspection, No Pedal Edema Neurologic/Psychiatric: Alert, Oriented x3 Results Lab Laboratory Tests 01/12/19 19:05 01/13/19 01:20 Assessment/Plan Assessment/Plan Acute respiratory failure -Currently on BiPAP -May need intubated- repeat ABG -SVNs Q4 -Start solumedrol 125x1 then 40 Q6 -Check Bilateral dopplers LE -Cant do CTA secondary to allergy and renal function. Pt is not stable enough for V/Qscan -Continue therapeutic Lovenox Metabolic encephalopathy - -Monitor -Add respiradol. D/C ativan and xanax -Morphine, and precedex ordered -Repeat ABG this AM Leukocytosis- Probably secondary to out pt steroids - No fever -Continue Cefepime, and azithromycin add vanco -Await pain cultures and MRSA swab NSTEMI r/o CHFAE -BNP is high however he has renal failure -S/p 40mg of lasix - Breathing did not improve with lasix -Cardiology consulted -Theraputic lovenox -Echo pending COPDAE/asthmaAE - pt does use 3liters at home. currently using 35% via BiPAP -Solumedrol 125 x 1 then 40 Q6 -SVNS Q4, add pulmicort BID Hypotension -Monitor Chronic renal failure -Monitor Hypokalemia, hypomag -replace ALEXANDER CHIU DO Jan 13, 2019 04:54
[2019-01-13] MEDS: RT-BUDESONIDE NEBS 0.5 MG/2ML (PULMICORT) AMP INH SCH ×2 (07:08→18:57)
[2019-01-13 07:10] LABS: ABG BASE EXCESS 10.6 MMOL/L (-2.5-2.5); ABG OXYGEN SATURATION 97 % (94-100); ABG PCO2 58 MMHG (35-45); ABG PO2 84 MMHG (79-93); ABG TCO2 37.6 MMOL/L (21.0-31.0); PATIENT TEMP 97.6
[2019-01-13 07:11] LABS: INSPIRED O2 30%
--- NOTE | 2019-01-13 07:42 | Diagnostic Imaging Report ---
INDICATION: Pneumonia. COPD. COMPARISON: 01/12/2019 FINDINGS: Single frontal view of the chest demonstrates normal heart size and pulmonary vascularity. The lungs show diffuse coarse interstitial opacities, stable compared to prior exam. There is no new focal consolidation, large effusion, nor pneumothorax. The visualized osseous structures show no acute abnormalities. IMPRESSION: 1. Persistent coarse prominence of the interstitium; possibly chronic. 2. No acute adverse interval change. Dictated by: Dictated on workstation # [id number]
--- NOTE | 2019-01-13 07:54 | NUR ---
DR. CHIU ORDERED BILATERAL LOWER EXT VENOUS ULTRASOUND TO BE DONE. WOOD MODEL BUILDER PATRICE HARPER CONTACTED AND INFORMED THIS RN THAT ULTRASOUND IS NOT ON THIS WEEKEND. DR. CHIU NOTIFIED.
[2019-01-13] MEDS ORDERED: HYDROCORTISONE 100 MG/2 ML (Solu-CORTEF) VIAL IV SCH (09:00)
[2019-01-13] MEDS ORDERED: PANTOPRAZOLE 40 MG (PROTONIX) TAB PO SCH (09:00)
[2019-01-13] MEDS: CEFEPIME INJECTION 2,000 MG in WATER (STERILE) FOR INJECTION 20 ML IV SCH ×2 (09:06→20:16)
[2019-01-13] MEDS: PANTOPRAZOLE 40 MG (PROTONIX) VIAL IV SCH (09:06)
[2019-01-13] MEDS: ENOXAPARIN 80 MG/0.8 ML (LOVENOX) SYR SC SCH ×2 (09:09→20:16)
[2019-01-13] MEDS: risperiDONE 0.25 MG (RisperDAL) TAB PO SCH ×2 (09:11→23:15)
[2019-01-13] MEDS: DEXMEDETOMIDINE INJECTION 200 MCG in NS (IVPB) 50 ML IV SCH ×2 (10:51→20:15)
[2019-01-13 10:56] LABS: ABG BASE EXCESS 9.5 MMOL/L (-2.5-2.5); ABG OXYGEN SATURATION 97 % (94-100); ABG PCO2 58 MMHG (35-45); ABG PH 7.39 (7.37-7.43); ABG PO2 79 MMHG (79-93); ABG TCO2 36.7 MMOL/L (21.0-31.0); ALLENS TEST YES-POS; INSPIRED O2 6L; VENTILATOR NO
--- NOTE | 2019-01-13 11:38 | Consultation-Cardiology ---
HPI-Cardiology Cardiology Consultation: Date of Consultation 01/13/19 Date of Admission Attending Physician Lilia Ruiz MD Admitting Physician Noah Franco MD Consulting Physician Viji CHATMAN MD HPI: Time Seen by a Provider: 10:30 Chief Complaint: Shortness of breath This is a 68-year-old gentleman who has history of COPD and is oxygen dependent. He does not have a history of CAD but has possible history of congestive heart failure. He has been sick for the last one week and was diagnosed with pneumonia with fever and cough and shortness of breath. The patient was given antibiotics and prednisone. Labs previously had shown leukocytosis with chronic kidney disease as well as positive troponin. The patient finally came to the ER. He denied chest pain however was complaining of shortness of breath. Elevated BNP, positive troponin, leukocytosis with possible perihilar infiltrate. Review of Systems-Cardiology Review of Systems Constitutional: As described under HPI; No As described under HPI, No no symptoms reported, No chills, No fever, No lightheadedness Eyes: No As described under HPI, No no symptoms reported, No blindness, No blurred vision, No contact lenses, No drainage, No decreased acuity, No foreign body sensation, No pain, No vision change Ears/Nose/Throat: No As described under HPI, No no symptoms reported, No chronic hearing loss, No ear discharge, No ear pain, No nasal drainage, No ulcerations Respiratory: No no symptoms reported; As described under HPI; No As described under HPI, No cough; orthopnea; No shortness of breath, No SOB with excertion Cardiovascular: No no symptoms reported; As described under HPI; No As described under HPI, No chest pain, No edema, No irregular heart rate, No lightheadedness, No palpitations Gastrointestinal: No no symptoms reported, No As described under HPI, No abdomen distended, No abdominal pain, No blood streaked bowels, No constipation , No diarrhea, No nausea, No vomiting, No stool coloration changes Genitourinary: No As described under HPI, No burning, No dysuria, No discharge , No frequency, No flank pain, No hematuria, No urgency Skin: No rash, No skin related problems, No ulcerations Psychiatric/Neurological: No anxiety, No depression, No seizure, No focal weakness, No syncope Hematologic: No bleeding abnormalities HOU-Jzdsad-Knkrko Hx Patient Social History Alcohol Use: Denies Use Recreational Drug Use: No Smoking Status: Current Everyday Smoker Type Used: Cigarettes 2nd Hand Smoke Exposure: Yes Recent Foreign Travel: No Recent Infectious Disease Expo: No Hospitalization with Isolation: Denies Immunizations Up To Date Date of Pneumonia Vaccine: Sep 26, 2018 Past Medical History PMH As described under Assessment. Allergies and Home Medications Allergies Coded Allergies: iodine (Verified Adverse Reaction, Unknown, 01/12/19) Home Medications Alprazolam 0.5 Mg Tablet, 0.5 MG PO BID PRN for ANXIETY, (Reported) Amlodipine Besylate 5 Mg Tablet, 5 MG PO DAILY, (Reported) Aspirin 325 Mg Tablet, 325 MG PO DAILY, (Reported) Atenolol 25 Mg Tablet, 25 MG PO DAILY, (Reported) Azithromycin 250 Mg Tablet, 250 MG PO UD, (Reported) TAKE 2 TABLETS TODAY, THEN TAKE 1 TABLET DAILY FOR 4 MORE DAYS Fluticasone/Umeclidin/Vilanter 1 Each Blst.w.dev, 1 EACH IH DAILY, (Reported) Ipratropium/Albuterol Sulfate 3 Ml Ampul.neb, 3 ML IH Q4H PRN for SHORTNESS OF BREATH, (Reported) Levofloxacin 500 Mg Tablet, 500 MG PO DAILY, (Reported) Lisinopril 2.5 Mg Tablet, 2.5 MG PO DAILY, (Reported) Nystatin 100,000 Unit/1 Ml Oral.susp, 4 ML PO QID, (Reported) Pantoprazole Sodium 40 Mg Tablet.dr, 40 MG PO DAILY, (Reported) Prednisone 20 Mg Tab, 20 MG PO DAILY, (Reported) Venlafaxine HCl 75 Mg Tab, 75 MG PO BID, (Reported) Patient Home Medication List Home Medication List Reviewed: Yes Physical Exam-Cardiology Physical Exam Vital Signs/I&O 01/13/19 01/13/19 01/13/19 01/13/19 02:00 03:00 04:00 04:00 Pulse 63 63 63 Resp 23 21 20 B/P (MAP) 94/67 (76) 103/76 (85) 108/77 (87) Pulse Ox 95 94 95 94 O2 Delivery NIV Bilevel NIV Bilevel NIV Bilevel NIV Bilevel O2 Flow Rate 35.00 35.00 35.00 FiO2 35 01/13/19 01/13/19 01/13/19 01/13/19 04:15 05:00 06:00 07:00 Pulse 62 59 54 53 Resp 18 18 17 17 B/P (MAP) 110/77 (88) 120/84 (96) 117/83 (94) Pulse Ox 95 95 94 95 O2 Delivery NIV Bilevel NIV Bilevel NIV Bilevel O2 Flow Rate 35.00 35.00 35.00 35.00 01/13/19 01/13/19 01/13/19 01/13/19 07:00 07:12 08:00 08:00 Pulse 53 54 55 Resp 7 18 B/P (MAP) 136/83 (100) Pulse Ox 95 98 94 O2 Delivery NIV Bilevel NIV Bilevel O2 Flow Rate 30.00 35.00 FiO2 30 01/13/19 01/13/19 01/13/19 01/13/19 09:03 10:00 10:55 11:00 Pulse 57 57 57 Resp 16 13 22 B/P (MAP) 130/85 (100) 145/98 (114) 168/114 (132) Pulse Ox 93 98 98 100 O2 Delivery NIV Bilevel NIV Bilevel High Flow N/C NIV Bilevel O2 Flow Rate 35.00 35.00 6.00 35.00 01/13/19 13:00 Pulse 59 01/13/19 00:00 Intake Total 1010 ml Balance 1010 ml Capillary Refill : Less Than 3 Seconds Constitutional: AAO x 3 HEENT: PERRL; No normal ENT inspection, No TMs normal, No pharynx normal, No scleral icterus (R), No scleral icterus (L), No pale conjunctivae (R), No pale conjunctivae (L), No photophobia, No TM abnormal (R), No TM abnormal (L), No pharyngeal erythema, No tonsillar exudate, No other, No discharge, No EOMI; hearing is well preserved; No hard of hearing; oral hygience is good; No ulceration, No xanthelasmas are seen Neck: No non-tender, No full range of motion, No supple, No normal inspection, No carotid bruit, No limited range of motion, No lymphadenopathy (R), No lymphadenopathy (L), No tender lateral, No tender midline, No thyromegaly, No other; carotid pulses are 2 + bilaterally; No with good upstrokes Respiratory: No accessory muscle use, No respiratory distress, No chest tender , No chest expansion is symmetric; chest is bilaterally symmetric; No lungs clear to percussion; lungs clear to auscultation, crackles; No rhonchi, No rales , No stridor, No wheezing, No pleural rub, No other Cardiovascular: regular rate-rhythm; No irregularly irregular, No extra beats, No parasternal heave is noted, No JVD, No edema, No bradycardia, No tachycardia , No point of maximal impulse, No cardiac thrills are palpable; S1 and S2; No gallop/S3, No gallop/S4, No diastolic murmur, No systolic murmur, No friction rub, No click, No other Gastrointestinal: No tender, No soft, No round, No distended, No pulsatile mass , No organomegaly, No guarding, No rebound, No tenderness, No hernia, No mass, No audible bowel sounds, No abnormal bowel sounds, No abdominal bruits, No spleenomegaly, No other Rectal: deferred Extremities: No normal range of motion, No non-tender, No normal inspection, No pedal edema, No calf tenderness, No normal capillary refill, No pelvis stable , No calf tenderness, No inflammation, No pedal edema, No slow capillary refill , No swelling, No other, No abrasion, No clubbing, No cyanosis, No ecchymosis, No laceration, No no lower extremity edema bilateral, No significant edema, No tenderness, No wound Neurologic/Psychiatric: no motor/sensory deficits, alert, normal mood/affect, oriented x 3, power is 5/5 both on sides Skin: No normal color, No warm/dry, No cyanosis, No cool, No diaphoresis, No damp, No ecchymosis, No jaundice, No mottled, No pallor, No rash, No tattoos/ piercings, No ulcerations, No rash on exposed areas, No ulcerations on exposed areas, No other Data Review Labs Laboratory Tests 01/12/19 19:05: White Blood Count 20.2H, Red Blood Count 5.39, Hemoglobin 15.4, Hematocrit 49, Mean Corpuscular Volume 91, Mean Corpuscular Hemoglobin 29, Mean Corpuscular Hemoglobin Concent 32, Red Cell Distribution Width 14.8H, Platelet Count 446H, Mean Platelet Volume 9.2, Neutrophils (%) (Auto) 84H, Lymphocytes (%) (Auto) 9L , Monocytes (%) (Auto) 6, Eosinophils (%) (Auto) 1, Basophils (%) (Auto) 0, Neutrophils # (Auto) 17.0H, Lymphocytes # (Auto) 1.8, Monocytes # (Auto) 1.2H, Eosinophils # (Auto) 0.1, Basophils # (Auto) 0.0, Neutrophils % (Manual) 91, Lymphocytes % (Manual) 7, Monocytes % (Manual) 1, Eosinophils % (Manual) 1, Basophils % (Manual) 0, Band Neutrophils 0, Blood Morphology Comment NORMAL, Prothrombin Time 13.5, INR Comment 1.0, Activated Partial Thromboplast Time 39H , Sodium Level 144, Potassium Level 3.5L, Chloride Level 97L, Carbon Dioxide Level 33H, Anion Gap 14, Blood Urea Nitrogen 34H, Creatinine 1.95H, Estimat Glomerular Filtration Rate 34, BUN/Creatinine Ratio 17, Glucose Level 98, Calcium Level 9.7, Corrected Calcium 9.9, Magnesium Level 1.9, Total Bilirubin 0.2, Aspartate Amino Transf (AST/SGOT) 14, Alanine Aminotransferase (ALT/SGPT) 22, Alkaline Phosphatase 91, Total Creatine Kinase 64, Myoglobin 187.5H, Troponin I 0.207H, B-Type Natriuretic Peptide 433.1H, Total Protein 7.7, Albumin 3.8 01/12/19 23:06: Blood Gas Puncture Site LEFT RADIAL, Blood Gas Patient Temperature 97.9, Arterial Blood pH 7.29*L, Arterial Blood Partial Pressure CO2 73*H, Arterial Blood Partial Pressure O2 113H, Arterial Blood HCO3 34H, Arterial Blood Total CO2 36.1H, Arterial Blood Oxygen Saturation 98, Arterial Blood Base Excess 7.3H , Siva Test YES-POS, Blood Gas Ventilator Setting NO, Blood Gas Inspired Oxygen 5L 01/13/19 00:50: Blood Gas Puncture Site LEFT RADIAL, Blood Gas Patient Temperature 97.5, Arterial Blood pH 7.33*L, Arterial Blood Partial Pressure CO2 67H, Arterial Blood Partial Pressure O2 128H, Arterial Blood HCO3 35H, Arterial Blood Total CO2 36.6H, Arterial Blood Oxygen Saturation 99, Arterial Blood Base Excess 8.5H , Siva Test YES-POS, Blood Gas Ventilator Setting NO, Blood Gas Inspired Oxygen 45% 01/13/19 01:20: White Blood Count 18.4H, Red Blood Count 4.77, Hemoglobin 13.5, Hematocrit 43, Mean Corpuscular Volume 91, Mean Corpuscular Hemoglobin 28, Mean Corpuscular Hemoglobin Concent 31L, Red Cell Distribution Width 14.8H, Platelet Count 385, Mean Platelet Volume 9.0, Neutrophils (%) (Auto) 79H, Lymphocytes (%) (Auto) 12 , Monocytes (%) (Auto) 6, Eosinophils (%) (Auto) 2, Basophils (%) (Auto) 0, Neutrophils # (Auto) 14.6H, Lymphocytes # (Auto) 2.2, Monocytes # (Auto) 1.1H, Eosinophils # (Auto) 0.5H, Basophils # (Auto) 0.0, Sodium Level 142, Potassium Level 3.4L, Chloride Level 102, Carbon Dioxide Level 29, Anion Gap 11, Blood Urea Nitrogen 32H, Creatinine 1.74H, Estimat Glomerular Filtration Rate 39, BUN/ Creatinine Ratio 18, Glucose Level 112H, Calcium Level 8.8, Corrected Calcium 9.5, Magnesium Level 1.6L, Total Bilirubin 0.2, Aspartate Amino Transf (AST/SGOT ) 14, Alanine Aminotransferase (ALT/SGPT) 16, Alkaline Phosphatase 69, Troponin I 0.196H, Total Protein 5.9L, Albumin 3.1L, Lactic Acid Level 1.51, Phosphorus Level 3.2 01/13/19 01:45: Urine Color YELLOW, Urine Clarity CLEAR, Urine pH 5, Urine Specific [place] 1.010L, Urine Protein 2+H, Urine Glucose (UA) NEGATIVE, Urine Ketones NEGATIVE, Urine Nitrite NEGATIVE, Urine Bilirubin NEGATIVE, Urine Urobilinogen NORMAL, Urine Leukocyte Esterase NEGATIVE, Urine RBC (Auto) 4+H, Urine RBC 50-100H, Urine WBC NONE, Urine Squamous Epithelial Cells 0-2, Urine Crystals NONE, Urine Bacteria NEGATIVE, Urine Casts NONE, Urine Mucus NEGATIVE, Urine Culture Indicated NO 01/13/19 07:00: Blood Gas Puncture Site LT RAD, Blood Gas Patient Temperature 97.6, Arterial Blood pH 7.40, Arterial Blood Partial Pressure CO2 58H, Arterial Blood Partial Pressure O2 84, Arterial Blood HCO3 36H, Arterial Blood Total CO2 37.6H, Arterial Blood Oxygen Saturation 97, Arterial Blood Base Excess 10.6H, Siva Test NA, Blood Gas Ventilator Setting NA, Blood Gas Inspired Oxygen 30% 01/13/19 10:50: Blood Gas Puncture Site RT RAD, Blood Gas Patient Temperature 97.0, Arterial Blood pH 7.39, Arterial Blood Partial Pressure CO2 58H, Arterial Blood Partial Pressure O2 79, Arterial Blood HCO3 35H, Arterial Blood Total CO2 36.7H, Arterial Blood Oxygen Saturation 97, Arterial Blood Base Excess 9.5H, Siva Test YES-POS, Blood Gas Ventilator Setting NO, Blood Gas Inspired Oxygen 6L Microbiology 01/13/19 Influenza Types A,B Antigen (SHAUNA) - Final, Complete ECG Impression ECG Initial ECG Rhythm: Normal Sinus A/P-Cardiology Assessment/Admission Diagnosis Non-STEMI, Acute systolic congestive heart failure, Severe respiratory failure, hypercarbic Severe COPD, Possible pneumonia, COPD exacerbation, Acute kidney injury, Plan This is a patient with guarded prognosis. Due to his severe oxygen-dependent COPD he is DO NOT RESUSCITATE. However he presents with non-STEMI and acute systolic congestive heart failure. I have discussed at length with the about his possible options. I recommend coronary angiography however coronary angiography cannot be done unless the patient can lie flat. The patient is very restless and keeps moving, therefore the need for anesthesia involvement and even possible short-term intubation. Will like Dr. Wall's input on this. Since the patient has severe COPD and elective intubation may not be the best option. However I will let Dr. Wall and anesthesia decide. coronary angiography cannot be performed on moderate conscious sedation. I also discussed with the about lifevest since his LVEF is between 30 and 35 percent. Non-STEMI, continue aspirin, Brilinta and Lovenox. Lipitor. Coronary angiography is recommended, see above. Acute systolic congestive heart failure, IV Lasix is recommended. Elevated BNP. Echocardiogram done 01/13/2019 shows an EF of 30-35 percent. Dilated LV with mild pulmonary hypertension. Severe respiratory failure, hypercarbic, likely multifactorial due to acute systolic congestive heart failure, severe COPD, influenza. Defer to Dr. Wall. Severe COPD, Possible pneumonia, COPD exacerbation, Acute kidney injury, improving gradually. Likely underlying chronic kidney disease. Critically ill patient, 60 minutes were spent taking care of this patient and discussing with the . Thank you for your consultation. Please call me if you have any questions. Cynthia Chatman MD, FACP, FACC, FSCAI, FHRS, CCDS Interventional Cardiology Cardiac Electrophysiology Vascular Medicine and Endovascular Interventions Clinical Quality Measures DVT/VTE Risk/Contraindication: Risk Factor Score Per Nursin RFS Level Per Nursing on Admit: 4+=Very High Viji CHATMAN MD Jan 13, 2019 11:37 am
[2019-01-13] MEDS: TICAGRELOR 90 MG TABLET (BRILINTA) PO SCH ×2 (12:11→20:31)
[2019-01-13] MEDS: amLODIPine 10 MG (NORVASC) TAB PO SCH (12:11)
[2019-01-13] MEDS: methylPREDNISolone 40 MG/ML (Solu-MEDROL) VIAL IV SCH ×3 (12:11→23:15)
[2019-01-13] MEDS: ASPIRIN E.C. 81 MG (ECOTRIN) TAB PO SCH (12:11)
[2019-01-13] MEDS: OSELTAMIVIR 30 MG (TAMIFLU) CAPSULE PO SCH ×2 (12:11→20:16)
[2019-01-13] MEDS: meTOprolol SUCCINATE 100 MG (TOPROL XL) TAB PO SCH (12:12)
--- NOTE | 2019-01-13 13:18 | History & Physicial ([facility]) ---
HPI History of Present Illness: Pt irritable and unwilling to provide much history. States he came to the hospital "because he loves it so much". Per ER report, was sent to ER by primary due to concern about elevated troponin. Review of clinic chart reveals that patient was seen in a different ER for shortness of breath and diagnosed with pneumonia and started on levofloxacin. When he followed up with his primary Dr. Franco, he was feeling better, but labs were repeated due to abnormalities noted in ER including elevated troponin. The clinic labs revealed persistently elevated troponin and so he was instructed to come to the ER. In our ER he was found to still have elevated troponin and was initially stable on his home 3 lpm supplemental oxygen, but concern still remained about pneumonia, so he was admitted on antibiotics with plan for further cardiac work up when stable from infection standpoint. Last night, he became markedly hypertensive and combative as well as with significantly worsening hypoxia, nearing complete respiratory failure and intubation, requiring bipap. Cardiology managed blood pressure with IV meds and I consulted Pulmonology. This morning, he states he wants to be DNR/DNI, his is not here at the time of my exam. He wants his urinary catheter out. Date seen by provider: Jan 13, 2019 Time Seen by Provider: 10:25 Attending Physician Lottie Arellano MD PCP Noah Franco MD Consult Date of Admission Jan 12, 2019 at 20:40 Home Medications Home Medications Reviewed patient Home Medication Reconciliation performed by pharmacy medication reconciliations prosthetic lab technician and/or nursing. Patients Allergies have been reviewed. Allergies Coded Allergies: iodine (Verified Adverse Reaction, Unknown, 01/12/19) COF-[id number] Hx Patient Social History Alcohol Use: Denies Use Recreational Drug Use: No Smoking Status: Current Everyday Smoker Type Used: Cigarettes 2nd Hand Smoke Exposure: Yes Recent Foreign Travel: No Contact w/other who traveled: No Recent Hopitalizations: No Recent Infectious Disease Expo: No Immunizations Up To Date Date of Pneumonia Vaccine: Sep 26, 2018 Past Medical History PMHx: COPD CHF HTN CKD stage 3 Anxiety Review of Systems ([facility]) Constitutional: other (unable to obtain due to patient resistance and agitation ) Reviewed Test Results Reviewed Test Results Lab Laboratory Tests Test 01/12/19 19:05 01/12/19 23:06 01/13/19 00:50 01/13/19 01:20 Range/Units White Blood Count 20.2 H 18.4 H 4.3-11.0 10^3/uL Red Blood Count 5.39 4.77 4.35-5.85 10^6/uL Hemoglobin 15.4 13.5 13.3-17.7 G/DL Hematocrit 49 43 40-54 % Mean Corpuscular Volume 91 91 80-99 FL Mean Corpuscular Hemoglobin 29 28 25-34 PG Mean Corpuscular Hemoglobin Concent 32 31 L 32-36 G/DL Red Cell Distribution Width 14.8 H 14.8 H 10.0-14.5 % Platelet Count 446 H 385 130-400 10^3/uL Mean Platelet Volume 9.2 9.0 7.4-10.4 FL Neutrophils (%) (Auto) 84 H 79 H 42-75 % Lymphocytes (%) (Auto) 9 L 12 12-44 % Monocytes (%) (Auto) 6 6 0-12 % Eosinophils (%) (Auto) 1 2 0-10 % Basophils (%) (Auto) 0 0 0-10 % Neutrophils # (Auto) 17.0 H 14.6 H 1.8-7.8 X 10^3 Lymphocytes # (Auto) 1.8 2.2 1.0-4.0 X 10^3 Monocytes # (Auto) 1.2 H 1.1 H 0.0-1.0 X 10^3 Eosinophils # (Auto) 0.1 0.5 H 0.0-0.3 10^3/uL Basophils # (Auto) 0.0 0.0 0.0-0.1 10^3/uL Neutrophils % (Manual) 91 % Lymphocytes % (Manual) 7 % Monocytes % (Manual) 1 % Eosinophils % (Manual) 1 % Basophils % (Manual) 0 % Band Neutrophils 0 % Blood Morphology Comment NORMAL Prothrombin Time 13.5 12.2-14.7 SEC INR Comment 1.0 0.8-1.4 Activated Partial Thromboplast Time 39 H 24-35 SEC Sodium Level 144 142 135-145 MMOL/L Potassium Level 3.5 L 3.4 L 3.6-5.0 MMOL/L Chloride Level 97 L 102 98-107 MMOL/L Carbon Dioxide Level 33 H 29 21-32 MMOL/L Anion Gap 14 11 5-14 MMOL/L Blood Urea Nitrogen 34 H 32 H 7-18 MG/DL Creatinine 1.95 H 1.74 H 0.60-1.30 MG/DL Estimat Glomerular Filtration Rate 34 39 BUN/Creatinine Ratio 17 18 Glucose Level 98 112 H 70-105 MG/DL Calcium Level 9.7 8.8 8.5-10.1 MG/DL Corrected Calcium 9.9 9.5 8.5-10.1 MG/DL Magnesium Level 1.9 1.6 L 1.8-2.4 MG/DL Total Bilirubin 0.2 0.2 0.1-1.0 MG/DL Aspartate Amino Transf (AST/SGOT) 14 14 5-34 U/L Alanine Aminotransferase (ALT/SGPT) 22 16 0-55 U/L Alkaline Phosphatase 91 69 40-136 U/L Total Creatine Kinase 64 30-200 U/L Myoglobin 187.5 H 10.0-92.0 NG/ML Troponin I 0.207 H 0.196 H <0.028 NG/ML B-Type Natriuretic Peptide 433.1 H <100.0 PG/ML Total Protein 7.7 5.9 L 6.4-8.2 GM/DL Albumin 3.8 3.1 L 3.2-4.5 GM/DL Blood Gas Puncture Site LEFT RADIAL LEFT RADIAL Blood Gas Patient Temperature 97.9 97.5 Arterial Blood pH 7.29 *L 7.33 *L 7.37-7.43 Arterial Blood Partial Pressure CO2 73 *H 67 H 35-45 MMHG Arterial Blood Partial Pressure O2 113 H 128 H 79-93 MMHG Arterial Blood HCO3 34 H 35 H 23-27 MMOL/L Arterial Blood Total CO2 36.1 H 36.6 H 21.0-31.0 MMOL/L Arterial Blood Oxygen Saturation 98 99 94-100 % Arterial Blood Base Excess 7.3 H 8.5 H -2.5-2.5 MMOL/L Siva Test YES-POS YES-POS Blood Gas Ventilator Setting NO NO Blood Gas Inspired Oxygen 5L 45% Lactic Acid Level 1.51 0.50-2.00 MMOL/L Phosphorus Level 3.2 2.3-4.7 MG/DL Test 01/13/19 01:45 01/13/19 07:00 01/13/19 10:50 Range/Units Urine Color YELLOW Urine Clarity CLEAR Urine pH 5 5-9 Urine Specific [place] 1.010 L 1.016-1.022 Urine Protein 2+ H NEGATIVE Urine Glucose (UA) NEGATIVE NEGATIVE Urine Ketones NEGATIVE NEGATIVE Urine Nitrite NEGATIVE NEGATIVE Urine Bilirubin NEGATIVE NEGATIVE Urine Urobilinogen NORMAL NORMAL MG/DL Urine Leukocyte Esterase NEGATIVE NEGATIVE Urine RBC (Auto) 4+ H NEGATIVE Urine RBC 50-100 H /HPF Urine WBC NONE /HPF Urine Squamous Epithelial Cells 0-2 /HPF Urine Crystals NONE /LPF Urine Bacteria NEGATIVE /HPF Urine Casts NONE /LPF Urine Mucus NEGATIVE /LPF Urine Culture Indicated NO Blood Gas Puncture Site LT RAD RT RAD Blood Gas Patient Temperature 97.6 97.0 Arterial Blood pH 7.40 7.39 7.37-7.43 Arterial Blood Partial Pressure CO2 58 H 58 H 35-45 MMHG Arterial Blood Partial Pressure O2 84 79 79-93 MMHG Arterial Blood HCO3 36 H 35 H 23-27 MMOL/L Arterial Blood Total CO2 37.6 H 36.7 H 21.0-31.0 MMOL/L Arterial Blood Oxygen Saturation 97 97 94-100 % Arterial Blood Base Excess 10.6 H 9.5 H -2.5-2.5 MMOL/L Siva Test NA YES-POS Blood Gas Ventilator Setting NA NO Blood Gas Inspired Oxygen 30% 6L Radiology CXR 01/12: IMPRESSION: The coarse interstitial densities in the lung bases, the crowded bronchovascular markings in the right infrahilar region and the blunting of the right costophrenic angle are most likely chronic in nature. If previous exams are available they would be helpful for comparison. If there are no prior studies available for comparison and clinical concern regarding an acute abnormality persists, then a followup PA and lateral chest would be recommended. Physical Exam-([facility]) Physical Exam Vital Signs VS - Last 72 Hours, by Label 01/12/19 01/12/19 01/12/19 01/12/19 19:00 19:00 21:45 22:00 Temp 97.6 98.0 Pulse 71 67 75 Resp 17 18 30 B/P (MAP) 186/120 (142) 187/116 (139) 176/123 (140) Pulse Ox 98 98 98 90 O2 Delivery Nasal Cannula Nasal Cannula Nasal Cannula Nasal Cannula O2 Flow Rate 2.00 3.00 3.00 6.00 01/12/19 01/12/19 01/12/19 01/12/19 22:15 22:30 22:30 22:30 Temp 98.0 Pulse 66 68 68 Resp 35 31 31 B/P (MAP) 192/120 (144) 191/118 191/118 (142) Pulse Ox 97 95 95 O2 Delivery Nasal Cannula Nasal Cannula Nasal Cannula Nasal Cannula O2 Flow Rate 6.00 6.00 6.00 6.00 6.00 01/12/19 01/12/19 01/12/19 01/12/19 22:47 23:30 23:40 23:45 Temp 95.7 Pulse 65 67 67 Resp 24 23 22 B/P (MAP) 197/117 (143) 190/116 (140) Pulse Ox 90 90 96 O2 Delivery Nasal Cannula Nasal Cannula NIV Bilevel O2 Flow Rate 6.00 6.00 45.00 45.00 01/13/19 01/13/19 01/13/19 01/13/19 00:00 00:00 00:40 01:00 Pulse 71 65 65 Resp 19 20 B/P (MAP) 118/86 (97) Pulse Ox 98 98 98 O2 Delivery NIV Bilevel NIV Bilevel O2 Flow Rate 45.00 40.00 FiO2 45 01/13/19 01/13/19 01/13/19 01/13/19 01:00 01:25 01:38 01:47 Pulse 64 65 63 Resp 19 20 B/P (MAP) 95/75 (82) Pulse Ox 97 98 98 O2 Delivery NIV Bilevel NIV Bilevel O2 Flow Rate 45.00 35.00 35.00 01/13/19 01/13/19 01/13/19 01/13/19 02:00 03:00 04:00 04:00 Pulse 63 63 63 Resp 23 21 20 B/P (MAP) 94/67 (76) 103/76 (85) 108/77 (87) Pulse Ox 95 94 95 94 O2 Delivery NIV Bilevel NIV Bilevel NIV Bilevel NIV Bilevel O2 Flow Rate 35.00 35.00 35.00 FiO2 35 01/13/19 01/13/19 01/13/19 01/13/19 04:15 05:00 06:00 07:00 Pulse 62 59 54 53 Resp 18 18 17 17 B/P (MAP) 110/77 (88) 120/84 (96) 117/83 (94) Pulse Ox 95 95 94 95 O2 Delivery NIV Bilevel NIV Bilevel NIV Bilevel O2 Flow Rate 35.00 35.00 35.00 35.00 01/13/19 01/13/19 01/13/19 01/13/19 07:00 07:12 08:00 08:00 Pulse 53 54 55 Resp 7 18 B/P (MAP) 136/83 (100) Pulse Ox 95 98 94 O2 Delivery NIV Bilevel NIV Bilevel O2 Flow Rate 30.00 35.00 FiO2 30 01/13/19 01/13/19 01/13/19 01/13/19 09:03 10:00 10:55 11:00 Pulse 57 57 57 Resp 16 13 22 B/P (MAP) 130/85 (100) 145/98 (114) 168/114 (132) Pulse Ox 93 98 98 100 O2 Delivery NIV Bilevel NIV Bilevel High Flow N/C NIV Bilevel O2 Flow Rate 35.00 35.00 6.00 35.00 Capillary Refill : Less Than 3 Seconds General Appearance: moderate distress Respiratory: wheezing Cardiovascular: regular rate, rhythm, no edema Peripheral Pulses: 2+ Dorsalis Pedis (R), 2+ Left Dors-Pedis (L) Gastrointestinal: normal bowel sounds, non tender, soft Extremities: other (peeling skin on both feet and lower shins) Neurologic/Psychiatric: alert, other (oriented to self and location, date except year, agitated and angry) Assessment/Plan Assessment/Plan Admission Status: Inpatient Order (span 2 midnights) Reason for Inpatient Admission: Possible NSTEMI complicated by COPD exacerbation and possible pneumonia as well as influenza with acute on chronic respiratory failure. (1) Pneumonia Status: Acute Assessment & Plan: Possible, on cefepime and azithromycin. CXR with chronic findings, respiratory issues may be more related to COPD exac and influenza. Continue abx for now while cultures pending. Lactic acid neg. Does have leukocytosis but has been on steroids. Qualifiers: Qualified Codes: J18.9 - Pneumonia, unspecified organism (2) NSTEMI (non-ST elevated myocardial infarction) Status: Acute Assessment & Plan: Persistently mildly elevated troponin, on therapeutic enoxaparin, Cardiology consulted. (3) Hypertension Status: Chronic Assessment & Plan: Receiving IV treatment overnight per Cardiology, appreciate recommendations. Qualifiers: Qualified Codes: I10 - Essential (primary) hypertension (4) COPD exacerbation Status: Acute Assessment & Plan: On IV solumedrol, breathing treatments. Pulmonology consulted. (5) Influenza B Status: Acute Assessment & Plan: Tamiflu renally dosed. May not be able to take oral due to marked agitation requiring sedation at times. (6) Acute and chronic respiratory failure Status: Acute Assessment & Plan: Pulmonology consulted, appreciate recommendations. Hypercapnea improved overnight with bipap, considering vapotherm this am. Unable to do CT for PE due to allergy and CKD, not stable for V/Q scan, on therapeutic lovenox. (7) Chronic kidney disease Status: Chronic Assessment & Plan: Stable, monitor, renally dose meds. Qualifiers: Qualified Codes: N18.3 - Chronic kidney disease, stage 3 (moderate) (8) Anxiety Status: Chronic (9) Chronic pain Status: Chronic Qualifiers: Qualified Codes: G89.4 - Chronic pain syndrome (10) DVT prophylaxis Status: Acute Assessment & Plan: On treatment dose enoxaparin due to NSTEMI and concern for possible PE. Clinical Quality Measures DVT/VTE Risk/Contraindication: Risk Factor Score Per Nursin RFS Level Per Nursing on Admit: 4+=Very High LOTTIE ARELLANO MD Jan 13, 2019 13:18
[2019-01-13] MEDS ORDERED: ALPR0.5T7 PO (13:41)
[2019-01-13] MEDS ORDERED: VNL75T PO (13:41)
[2019-01-13] MEDS ORDERED: IPRA3AMP31 IH (13:41)
[2019-01-13] MEDS ORDERED: PANT40TA3 PO (13:41)
[2019-01-13] MEDS ORDERED: LISI2.5T PO (13:41)
[2019-01-13] MEDS ORDERED: ATEN25TA PO (13:41)
[2019-01-13] MEDS ORDERED: ASPI-808 PO (13:41)
[2019-01-13] MEDS ORDERED: AMLO5TAB4 PO (13:41)
[2019-01-13] MEDS ORDERED: FLUT1BLS3 IH (13:41)
[2019-01-13] MEDS: lisINopril 5 MG (PRINIVIL) TABLET PO SCH (15:06)
[2019-01-13] MEDS: ATORVASTATIN 40 MG (LIPITOR) TABLET PO SCH (20:16)
[2019-01-13] MEDS: AZITHROMYCIN INJECTION 500 MG in NS (IVPB) 250 ML IV SCH (23:15)
[2019-01-14] VITALS (23 sets, daily range): BP systolic 89–196; BP diastolic 65–113
[2019-01-14] MEDS: DEXMEDETOMIDINE INJECTION 200 MCG in NS (IVPB) 50 ML IV SCH (02:19)
[2019-01-14] MEDS: RT-ALBUTEROL/IPRATROPIUM 3 ML (DUONEB) VIAL INH SCH ×7 (02:23→22:11)
[2019-01-14 03:58] LABS: CALCIUM 8.8 MG/DL (8.5-10.1); CREATININE SERUM 1.88 MG/DL (0.60-1.30); MAGNESIUM 2.1 MG/DL (1.8-2.4); PHOSPHORUS 3.7 MG/DL (2.3-4.7); POTASSIUM 4.3 MMOL/L (3.6-5.0)
[2019-01-14 04:25] LABS: ABG BASE EXCESS 7.7 MMOL/L (-2.5-2.5); ABG OXYGEN SATURATION 92 % (94-100); ABG PCO2 49 MMHG (35-45); ABG PH 7.43 (7.37-7.43); ABG PO2 56 MMHG (79-93); ABG TCO2 33.7 MMOL/L (21.0-31.0)
[2019-01-14 04:26] LABS: ALLENS TEST YES-POS; PATIENT TEMP 97.9; VENTILATOR NO
[2019-01-14] MEDS: MAGNESIUM 1 GM/100 ML IVPB 100 ML IV SCH (04:47)
[2019-01-14] MEDS: KCL 20 MEQ TAB (K-DUR) PO SCH (04:47)
[2019-01-14] MEDS: POTASSIUM CL 10MEQ/50ML IVPB 50 ML IV SCH (04:47)
[2019-01-14 05:19] LABS: BASOPHILS % (AUTO) 0 % (0-10); EOSINOPHILS % (AUTO) 0 % (0-10); HEMATOCRIT 38 % (40-54); LYMPHOCYTES # (AUTO) 0.7 X 10^3 (1.0-4.0); LYMPHOCYTES % (AUTO) 3 % (12-44); MEAN CORPUSCULAR HEMOGLOBIN 29 PG (25-34); MEAN CORPUSCULAR HGB CONC 32 G/DL (32-36); MEAN CORPUSCULAR VOLUME 90 FL (80-99); MEAN PLATELET VOLUME 9.5 FL (7.4-10.4); MONOCYTES # (AUTO) 0.6 X 10^3 (0.0-1.0); MONOCYTES % (AUTO) 2 % (0-12); NEUTROPHILS % (AUTO) 95 % (42-75); PLATELET COUNT 310 10^3/uL (130-400); RED CELL DISTRIBUTION WIDTH 14.3 % (10.0-14.5); WHITE BLOOD COUNT 25.3 10^3/uL (4.3-11.0)
--- NOTE | 2019-01-14 05:20 | Pulmonary Progress Note ---
Subjective Time Seen by a Provider: 05:40 Subjective/Events-last exam PT is more awake now and wanting Ortiz out Sepsis Event Evaluation Height, Weight, BMI Height: 5'10.00" Weight: 160lbs. 0.0oz. [id number]; 23.0 BMI Method:Stated Focused Exam Lactate Level 01/13/19 01:20: Lactic Acid Level 1.51 Exam Exam Vital Signs Date Time Temp Pulse Resp B/P (MAP) Pulse Ox O2 Delivery O2 Flow Rate FiO2 01/14/19 04:00 94 Nasal Cannula 4.00 01/14/19 03:00 64 21 96/65 (75) 95 Nasal Cannula 4.00 01/14/19 02:48 Nasal Cannula 4.00 01/14/19 02:23 98 Nasal Cannula 6.00 01/14/19 02:00 58 19 104/72 (83) 96 Nasal Cannula 6.00 01/14/19 01:00 59 01/14/19 01:00 59 21 105/73 (84) 96 Nasal Cannula 6.00 01/14/19 00:00 94 Nasal Cannula 6.00 01/14/19 00:00 67 21 130/99 (109) 96 Nasal Cannula 6.00 01/14/19 00:00 94 Nasal Cannula 6.00 01/13/19 23:00 64 16 128/81 (97) 98 Nasal Cannula 6.00 01/13/19 22:00 61 15 113/75 (88) 96 Nasal Cannula 6.00 01/13/19 21:35 98 Nasal Cannula 6.00 01/13/19 21:00 61 16 136/86 (103) 98 Nasal Cannula 6.00 01/13/19 20:00 71 23 167/88 (114) 97 Nasal Cannula 6.00 01/13/19 20:00 96 Nasal Cannula 6.00 01/13/19 20:00 94 Nasal Cannula 6.00 01/13/19 19:06 97 01/13/19 19:00 56 17 118/75 (89) 97 Nasal Cannula 6.00 01/13/19 19:00 56 01/13/19 18:54 98 Nasal Cannula 6.00 01/13/19 18:00 57 18 135/80 (98) 98 NIV Bilevel 35.00 01/13/19 17:00 60 15 129/87 (101) 95 NIV Bilevel 35.00 01/13/19 15:29 97 Nasal Cannula 6.00 01/13/19 15:29 97 Nasal Cannula 6.00 01/13/19 15:00 59 27 129/86 (100) 95 NIV Bilevel 35.00 01/13/19 14:51 96 High Flow N/C 6.00 01/13/19 14:00 59 37 135/94 (108) 97 NIV Bilevel 35.00 01/13/19 13:00 59 01/13/19 13:00 57 18 145/89 (107) 96 NIV Bilevel 35.00 01/13/19 12:00 61 24 154/107 (123) 96 NIV Bilevel 35.00 01/13/19 12:00 97 Nasal Cannula 6.00 01/13/19 12:00 97 Nasal Cannula 6.00 01/13/19 11:00 57 22 168/114 (132) 100 NIV Bilevel 35.00 01/13/19 10:55 98 High Flow N/C 6.00 01/13/19 10:00 57 13 145/98 (114) 98 NIV Bilevel 35.00 01/13/19 09:03 57 16 130/85 (100) 93 NIV Bilevel 35.00 01/13/19 08:00 55 18 136/83 (100) 94 NIV Bilevel 35.00 01/13/19 08:00 98 NIV Bilevel 30 01/13/19 07:12 54 7 95 30.00 01/13/19 07:00 53 01/13/19 07:00 53 17 117/83 (94) 95 NIV Bilevel 35.00 01/13/19 06:00 54 17 120/84 (96) 94 NIV Bilevel 35.00 I & O 01/14/19 07:00 Intake Total 1442 ml Output Total 2200 ml Balance -758 ml Height & Weight Height: 5'10.00" Weight: 160lbs. 0.0oz. [id number]; 23.0 BMI Method:Stated General Appearance: No Apparent Distress, Anxious, Chronically ill HEENT: PERRL/EOMI, Pharynx Normal, Moist Mucous Membranes Neck: Full Range of Motion, Normal Inspection Respiratory: Chest Non Tender, No Accessory Muscle Use, No Respiratory Distress , Decreased Breath Sounds, Wheezing (faint) Cardiovascular: Regular Rate, Rhythm, No Edema, No Murmur, Normal Peripheral Pulses Capillary Refill: Less Than 3 Seconds Peripheral Pulses: 2+ Dorsalis Pedis (R), 2+ Left Dors-Pedis (L) Gastrointestinal: normal bowel sounds, non tender, soft Extremity: Normal Capillary Refill, Normal Inspection, No Pedal Edema Neurologic/Psychiatric: Alert, Oriented x3 Results Lab Laboratory Tests 01/12/19 19:05 01/13/19 01:20 01/14/19 03:18 Assessment/Plan Assessment/Plan Acute respiratory failure -SVNs Q4 -refusing BiPAP -Start solumedrol 40 Q6 -Check Bilateral dopplers LE -Cant do CTA secondary to allergy and renal function. Pt is not stable enough for V/Qscan -Continue therapeutic Lovenox Pt has decreased UO and worsening renal function -Will increase IVF Influenza B -Tamiflu -Isolation LUE pain edema - Doubt compartment syndrome however pt complains of severe pain -Will check stat venous and arterial dopplers -Consult Dr. Arias - Pt does have radial pulse and good capillary refill. -Will have RN place sign that says "no labs from left arm. CHFAE -Monitor Hx of severe oxygen dependent COPD -SVNS, oxygen Metabolic encephalopathy - -Monitor -respiradol -Morphine, and D/C precedex Leukocytosis- Probably secondary to out pt steroids - No fever -Continue Cefepime, and azithromycin add vanco -Await pain cultures and MRSA swab NSTEMI -BNP is high however he has renal failure -Cardiology consulted -Theraputic lovenox -Echo pending COPDAE/asthmaAE - pt does use 3liters at home. currently using 35% via BiPAP -Solumedrol then 40 Q6 -SVNS Q4, add pulmicort BID Hypotension -Monitor Chronic renal failure -Monitor Hypokalemia, hypomag -replace ALEXANDER CHIU DO Jan 14, 2019 05:20
--- NOTE | 2019-01-14 05:30 | NUR ---
DR. CHIU ON THE FLOOR AND INFORMED THAT PATIENT'S LEFT ARM IS SWOLLEN, TENDER AND BRUISED. EXPLAINED AGAIN TO PATIENT AT BEDSIDE THAT DUE TO HYPOTENSION PAIN MEDS WOULD BE WITHHELD UNTIL BP IMPROVES. DR. CHIU EXAMINED LEFT LOWER EXTREM. AND ORDERED CONSULT WITH DR. CADE AND ARTERIAL AND VENOUS ULTRASOUND. LIMB ALERT APPLIED TO LEFT LOWER EXTREM. ONE LITER LR BOLUS ORDERED AND LR TO RESTART AT 125 ML/HR TO ADDRESS HYPOTENSION. WILL CONTINUE TO MONITOR.
[2019-01-14] MEDS: methylPREDNISolone 40 MG/ML (Solu-MEDROL) VIAL IV SCH ×4 (06:06→22:46)
[2019-01-14] MEDS ORDERED: LACTATED RINGERS 1,000 ML IV SCH (06:15)
[2019-01-14] MEDS: RT-BUDESONIDE NEBS 0.5 MG/2ML (PULMICORT) AMP INH SCH ×3 (06:28→18:48)
[2019-01-14] MEDS: LACTATED RINGERS 1,000 ML IV SCH ×3 (07:02→22:44)
--- NOTE | 2019-01-14 07:31 | NUR ---
DR. CADE CALLED AND NOTIFIED OF CONSULT.
--- NOTE | 2019-01-14 09:06 | Diagnostic Imaging Report ---
INDICATION: Dyspnea. Comparison made with prior examination 01/13/2019. FINDINGS: The heart size is normal. There is mild venous congestion. There are patchy bibasilar infiltrates. There is left pleural effusion. There is no pneumothorax. Mediastinum is unremarkable. IMPRESSION: Patchy bibasilar infiltrates and small left pleural effusion. Mild central pulmonary venous congestion. Dictated by: Dictated on workstation # [id number]
[2019-01-14] MEDS: morphine INJ 4 MG/ML 1 ML (VIAL/SYRINGE) IVP PRN ×4 (09:18→20:12)
[2019-01-14] MEDS: PANTOPRAZOLE 40 MG (PROTONIX) VIAL IV SCH (09:20)
[2019-01-14] MEDS: CEFEPIME INJECTION 2,000 MG in WATER (STERILE) FOR INJECTION 20 ML IV SCH ×2 (09:20→21:50)
[2019-01-14] MEDS: meTOprolol SUCCINATE 100 MG (TOPROL XL) TAB PO SCH (09:20)
[2019-01-14] MEDS: OSELTAMIVIR 30 MG (TAMIFLU) CAPSULE PO SCH ×2 (09:20→21:33)
[2019-01-14] MEDS: ASPIRIN E.C. 81 MG (ECOTRIN) TAB PO SCH (09:20)
[2019-01-14] MEDS: lisINopril 5 MG (PRINIVIL) TABLET PO SCH (09:22)
[2019-01-14] MEDS: amLODIPine 10 MG (NORVASC) TAB PO SCH (09:22)
[2019-01-14] MEDS: risperiDONE 0.25 MG (RisperDAL) TAB PO SCH ×2 (09:22→21:33)
[2019-01-14] MEDS: ENOXAPARIN 80 MG/0.8 ML (LOVENOX) SYR SC SCH ×2 (11:30→21:49)
[2019-01-14] MEDS: TICAGRELOR 90 MG TABLET (BRILINTA) PO SCH ×2 (11:30→21:33)
--- NOTE | 2019-01-14 14:23 | Cardiology Progress Note ---
Cardiology SOAP Progress Note Subjective: Complaining of left arm discomfort. Still short of breath. No chest pain. Objective: I&O/Vital Signs 01/14/19 01/14/19 01/14/19 01/14/19 02:23 02:48 03:00 04:00 Pulse 64 Resp 21 B/P (MAP) 96/65 (75) Pulse Ox 98 95 94 O2 Delivery Nasal Cannula Nasal Cannula Nasal Cannula Nasal Cannula O2 Flow Rate 6.00 4.00 4.00 4.00 01/14/19 01/14/19 01/14/19 01/14/19 04:00 04:00 04:00 05:00 Temp 97.9 Pulse 62 60 Resp 23 18 B/P (MAP) 99/75 (83) 110/72 (85) Pulse Ox 94 97 95 O2 Delivery Nasal Cannula Nasal Cannula Nasal Cannula O2 Flow Rate 4.00 4.00 4.00 01/14/19 01/14/19 01/14/19 01/14/19 06:00 06:30 07:00 07:00 Pulse 59 59 57 Resp 16 42 B/P (MAP) 89/68 (75) 116/70 (85) Pulse Ox 98 99 O2 Delivery Nasal Cannula Nasal Cannula Nasal Cannula O2 Flow Rate 4.00 4.00 4.00 01/14/19 01/14/19 01/14/19 01/14/19 08:00 08:00 08:00 09:00 Pulse 57 63 Resp 23 14 B/P (MAP) 123/77 (92) Pulse Ox 94 O2 Delivery Nasal Cannula Nasal Cannula Nasal Cannula Nasal Cannula O2 Flow Rate 4.00 4.00 4.00 4.00 01/14/19 01/14/19 01/14/19 01/14/19 09:00 10:00 10:11 11:00 Temp 98.4 Pulse 63 71 70 Resp 14 16 20 B/P (MAP) 149/98 (115) 150/90 (110) Pulse Ox 97 99 94 98 O2 Delivery Nasal Cannula Nasal Cannula Nasal Cannula Nasal Cannula O2 Flow Rate 4.00 4.00 4.00 4.00 01/14/19 01/14/19 01/14/19 01/14/19 12:00 12:00 12:00 12:00 Temp 98.6 Pulse 65 Resp 14 B/P (MAP) 143/95 (111) Pulse Ox 98 O2 Delivery Nasal Cannula Nasal Cannula Nasal Cannula O2 Flow Rate 4.00 4.00 4.00 01/14/19 01/14/19 01/14/19 13:00 13:00 14:00 Pulse 77 65 63 Resp 21 13 B/P (MAP) 169/104 (125) 155/94 (114) Pulse Ox 97 99 O2 Delivery Nasal Cannula Nasal Cannula O2 Flow Rate 4.00 4.00 01/14/19 00:00 Intake Total 742 ml Output Total 1150 ml Balance -408 ml Weight (Pounds): 161 Weight (Ounces): 6.0 Weight (Calculated Kilograms): [id number] Constitutional: AAO x 3 Respiratory: No accessory muscle use, No respiratory distress, No chest tender , No chest expansion is symmetric; chest is bilaterally symmetric; No lungs clear to percussion; lungs clear to auscultation, crackles; No rhonchi, No rales , No stridor, No wheezing, No pleural rub, No other Cardiovascular: regular rate-rhythm; No irregularly irregular, No extra beats, No parasternal heave is noted, No JVD, No edema, No bradycardia, No tachycardia , No point of maximal impulse, No cardiac thrills are palpable; S1 and S2; No gallop/S3, No gallop/S4, No diastolic murmur, No systolic murmur, No friction rub, No click, No other Gastrointestional: No tender, No soft, No round, No distended, No pulsatile mass, No organomegaly, No guarding, No rebound, No tenderness, No hernia, No mass, No audible bowel sounds, No abnormal bowel sounds, No abdominal bruits, No spleenomegaly, No other Extremities: No normal range of motion, No non-tender, No normal inspection, No pedal edema, No calf tenderness, No normal capillary refill, No pelvis stable , No calf tenderness, No inflammation, No pedal edema, No slow capillary refill , No swelling, No other, No abrasion, No clubbing, No cyanosis, No ecchymosis, No laceration, No no lower extremity edema bilateral, No significant edema, No tenderness, No wound Neurologic/Psychiatric: no motor/sensory deficits, alert, normal mood/affect, oriented x 3, power is 5/5 both on sides Skin: No normal color, No warm/dry, No cyanosis, No cool, No diaphoresis, No damp, No ecchymosis, No jaundice, No mottled, No pallor, No rash, No tattoos/ piercings, No ulcerations, No rash on exposed areas, No ulcerations on exposed areas, No other Results/Procedures: Labs Laboratory Tests 01/13/19 15:00: Glucometer 153H 01/14/19 03:18: White Blood Count 25.3H, Red Blood Count 4.16L, Hemoglobin 12.0L, Hematocrit 38L , Mean Corpuscular Volume 90, Mean Corpuscular Hemoglobin 29, Mean Corpuscular Hemoglobin Concent 32, Red Cell Distribution Width 14.3, Platelet Count 310, Mean Platelet Volume 9.5, Neutrophils (%) (Auto) 95H, Lymphocytes (%) (Auto) 3L , Monocytes (%) (Auto) 2, Eosinophils (%) (Auto) 0, Basophils (%) (Auto) 0, Neutrophils # (Auto) 24.0H, Lymphocytes # (Auto) 0.7L, Monocytes # (Auto) 0.6, Eosinophils # (Auto) 0.0, Basophils # (Auto) 0.0, Sodium Level 138, Potassium Level 4.3, Chloride Level 99, Carbon Dioxide Level 27, Anion Gap 12, Blood Urea Nitrogen 36H, Creatinine 1.88H, Estimat Glomerular Filtration Rate 36, BUN/ Creatinine Ratio 19, Glucose Level 167H, Calcium Level 8.8, Phosphorus Level 3.7 , Magnesium Level 2.1 01/14/19 04:10: Blood Gas Puncture Site RIGHT RADIAL, Blood Gas Patient Temperature 97.9, Arterial Blood pH 7.43, Arterial Blood Partial Pressure CO2 49H, Arterial Blood Partial Pressure O2 56L, Arterial Blood HCO3 32H, Arterial Blood Total CO2 33.7H , Arterial Blood Oxygen Saturation 92L, Arterial Blood Base Excess 7.7H, Siva Test YES-POS, Blood Gas Ventilator Setting NO, Blood Gas Inspired Oxygen UNK Microbiology 01/13/19 Blood Culture - Preliminary, Resulted No growth 01/13/19 MRSA Screen - Final, Complete MRSA not isolated A/P: Assessment/Dx: Non-STEMI, Acute systolic congestive heart failure, Severe respiratory failure, hypercarbic Severe COPD, Possible pneumonia, COPD exacerbation, Acute kidney injury, Plan: Please see my note from yesterday for detailed discussion with . Today the patient was more conversant, so I spoke to him as well. He wants to be full code and wants everything to be done. He consents to coronary angiography, however he needs to improve from his respiratory status before coronary angiography can be performed. Also we would need anesthesia/Dr. Wall's assistance since coronary angiography will not be able to be performed in moderate conscious sedation. Non-STEMI, continue aspirin, Brilinta and Lovenox. Lipitor. Coronary angiography is recommended, see above. Acute systolic congestive heart failure, IV Lasix is recommended. Elevated BNP. Echocardiogram done 01/13/2019 shows an EF of 30-35 percent. Dilated LV with mild pulmonary hypertension. Severe respiratory failure, hypercarbic, likely multifactorial due to acute systolic congestive heart failure, severe COPD, influenza. Defer to Dr. Wall. Severe COPD, Possible pneumonia, COPD exacerbation, Acute kidney injury, improving gradually. Likely underlying chronic kidney disease. Thank you for your consultation. Please call me if you have any questions. Cynthia Chatman MD, FACP, FACC, FSCAI, FHRS, CCDS Interventional Cardiology Cardiac Electrophysiology Vascular Medicine and Endovascular Interventions Focused Exam Lactate Level 01/13/19 01:20: Lactic Acid Level 1.51 Viji CHATMAN MD Jan 14, 2019 2:23 pm
--- NOTE | 2019-01-14 18:00 | Consultation ---
History of Present Illness History of Present Illness Patient Consulted On(fiona/time) 01/14/19 17:59 Date Seen by Provider: Jan 14, 2019 Time Seen by Provider: 10:04 History of Present Illness Consult requested by Dr. Wlal for left upper extremity pain. Patient is admitted for pneumonia and NSTEMI. He was having elevated troponins and was instructed to go to ED For further evaluation. He had a blood gas taken from left arm and had hematoma form. Patient states that he has moderate pain in the left arm. Some movement makes pain a little worse. Nothing really makes it better He does not have any numbness or tingling in the arm. He states he is able to move all digitis and feel with them the ways he always has. Patient on anticoagulation and wbc elevated but on steroids. Allergies and Home Medications Allergies Coded Allergies: iodine (Verified Adverse Reaction, Unknown, 01/12/19) Home Medications Alprazolam 0.5 Mg Tablet, 0.5 MG PO BID PRN for ANXIETY, (Reported) Amlodipine Besylate 5 Mg Tablet, 5 MG PO DAILY, (Reported) Aspirin 325 Mg Tablet, 325 MG PO DAILY, (Reported) Atenolol 25 Mg Tablet, 25 MG PO DAILY, (Reported) Azithromycin 250 Mg Tablet, 250 MG PO UD, (Reported) TAKE 2 TABLETS TODAY, THEN TAKE 1 TABLET DAILY FOR 4 MORE DAYS Fluticasone/Umeclidin/Vilanter 1 Each Blst.w.dev, 1 EACH IH DAILY, (Reported) Ipratropium/Albuterol Sulfate 3 Ml Ampul.neb, 3 ML IH Q4H PRN for SHORTNESS OF BREATH, (Reported) Levofloxacin 500 Mg Tablet, 500 MG PO DAILY, (Reported) Lisinopril 2.5 Mg Tablet, 2.5 MG PO DAILY, (Reported) Nystatin 100,000 Unit/1 Ml Oral.susp, 4 ML PO QID, (Reported) Pantoprazole Sodium 40 Mg Tablet.dr, 40 MG PO DAILY, (Reported) Prednisone 20 Mg Tab, 20 MG PO DAILY, (Reported) Venlafaxine HCl 75 Mg Tab, 75 MG PO BID, (Reported) Patient Home Medication List Home Medication List Reviewed: Yes Past [id number] Hx Patient Social History Alcohol Use: Denies Use Recreational Drug Use: No Smoking Status: Current Everyday Smoker Type Used: Cigarettes 2nd Hand Smoke Exposure: Yes Recent Foreign Travel: No Contact w/Someone Who Travel: No Recent Infectious Disease Expo: No Recent Hopitalizations: No Immunizations Up To Date Date of Pneumonia Vaccine: Sep 26, 2018 Seasonal Allergies Seasonal Allergies: Yes Surgeries History of Surgeries: Yes (TENDON REPAIR ) Surgeries: Gallbladder Respiratory History of Respiratory Disorde: Yes Respiratory Disorders: Asthma, Pneumonia, COPD Cardiovascular History of Cardiac Disorders: Yes Cardiac Disorders: Hypertension Neurological History of Neurological Disord: No Genitourinary History of Genitourinary Disor: Yes Genitourinary Disorders: Kidney Stones Gastrointestinal History of Gastrointestinal Di: No Musculoskeletal History of Musculoskeletal Dis: No Endocrine History of Endocrine Disorders: No HEENT History of HEENT Disorders: No Cancer History of Cancer: No Psychosocial History of Psychiatric Problem: Yes Behavioral Health Disorders: Anxiety Integumentary History of Skin or Integumenta: No Blood Transfusions History of Blood Disorders: No Adverse Reaction to a Blood Tr: No Family Medical History Significant Family History: No Pertinent Family Hx Review of Systems-General Constitutional: no symptoms reported EENTM: no symptoms reported Respiratory: see HPI Cardiovascular: see HPI Gastrointestinal: no symptoms reported Genitourinary: no symptoms reported Musculoskeletal: other (left arm pain) Skin: change in color Psychiatric/Neurological: No Symptoms Reported Physical Exam-General Problems Physical Exam Vital Signs Vital Signs - First Documented 01/12/19 01/13/19 19:00 00:00 Temp 97.6 Pulse 71 Resp 17 B/P (MAP) 186/120 (142) Pulse Ox 98 O2 Delivery Nasal Cannula O2 Flow Rate 2.00 FiO2 45 Capillary Refill : Less Than 3 Seconds General Appearance: no apparent distress HEENT: PERRL/EOMI, normal ENT inspection Neck: non-tender, supple Respiratory: chest non-tender, no respiratory distress, no accessory muscle use Cardiovascular: regular rate, rhythm Gastrointestinal: non tender, soft Rectal: deferred Back: no CVA tenderness Extremities: other (left arm with bruising and swelling. 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, no motor/sensory deficits, alert, normal mood/affect, oriented x 3 Skin: ecchymosis Lymphatic: no adenopathy Data Review Labs Laboratory Tests 01/14/19 03:18: White Blood Count 25.3H, Red Blood Count 4.16L, Hemoglobin 12.0L, Hematocrit 38L , Mean Corpuscular Volume 90, Mean Corpuscular Hemoglobin 29, Mean Corpuscular Hemoglobin Concent 32, Red Cell Distribution Width 14.3, Platelet Count 310, Mean Platelet Volume 9.5, Neutrophils (%) (Auto) 95H, Lymphocytes (%) (Auto) 3L , Monocytes (%) (Auto) 2, Eosinophils (%) (Auto) 0, Basophils (%) (Auto) 0, Neutrophils # (Auto) 24.0H, Lymphocytes # (Auto) 0.7L, Monocytes # (Auto) 0.6, Eosinophils # (Auto) 0.0, Basophils # (Auto) 0.0, Sodium Level 138, Potassium Level 4.3, Chloride Level 99, Carbon Dioxide Level 27, Anion Gap 12, Blood Urea Nitrogen 36H, Creatinine 1.88H, Estimat Glomerular Filtration Rate 36, BUN/ Creatinine Ratio 19, Glucose Level 167H, Calcium Level 8.8, Phosphorus Level 3.7 , Magnesium Level 2.1 01/14/19 04:10: Blood Gas Puncture Site RIGHT RADIAL, Blood Gas Patient Temperature 97.9, Arterial Blood pH 7.43, Arterial Blood Partial Pressure CO2 49H, Arterial Blood Partial Pressure O2 56L, Arterial Blood HCO3 32H, Arterial Blood Total CO2 33.7H , Arterial Blood Oxygen Saturation 92L, Arterial Blood Base Excess 7.7H, Siva Test YES-POS, Blood Gas Ventilator Setting NO, Blood Gas Inspired Oxygen UNK Microbiology 01/13/19 Blood Culture - Preliminary, Resulted No growth 01/13/19 MRSA Screen - Final, Complete MRSA not isolated Assessment/Plan Assessment/Plan Assessment/Plan left upper extremity pain. i do not believe patient has compartment syndrome at this time will continue to monitor pneumonia nstemi patient anticoagulated which after abg he had fair amount of bleeding into left forearm. He has been instructed before me seeing him to use ice packs which he is refusing to do. no surgical intervention at this time patient was instructed that if he has any change to the left arm he should let the nurses know immediately so it can be reevaluated. will follow. Clinical Quality Measures DVT/VTE Risk/Contraindication: Risk Factor Score Per Nursin RFS Level Per Nursing on Admit: 4+=Very High ALEX CADE DO Jan 14, 2019 18:00
--- NOTE | 2019-01-14 19:19 | Progress Note (SOAP) ---
Subjective Subjective/Events-last exam Improved agitation this am. He is anxious to get on with whatever needs to be done to get better. He has a lot of pain in his left arm which is very swollen. Review of Systems Date Seen by Provider: Jan 14, 2019 Time Seen by Provider: 10:10 Focused Exam Lactate Level 01/13/19 01:20: Lactic Acid Level 1.51 Objective Exam Last Set of Vital Signs Vital Signs Date Time Temp Pulse Resp B/P (MAP) Pulse Ox O2 Delivery O2 Flow Rate FiO2 01/14/19 18:48 97 Nasal Cannula 4.00 01/14/19 18:00 70 162/100 (120) 01/14/19 16:00 99.5 01/14/19 16:00 22 01/13/19 08:00 30 Capillary Refill : Less Than 3 Seconds I&O Intake and Output 01/14/19 00:00 Intake Total 1092 ml Output Total 3800 ml Balance -2708 ml Intake Oral 670 ml IV Total 422 ml Output Urine Total 3800 ml General: Alert, No Acute Distress Lungs: Clear to Auscultation, Normal Air Movement Heart: Regular Rate, No Murmurs Extremities: Other (ecchymosis and marked swelling left arm, particularly in lower arm. Radial pulse 2+.) Neuro: Normal Speech Psych/Mental Status: Mental Status NL Results/Procedures Lab Laboratory Tests 01/14/19 03:18: White Blood Count 25.3H, Red Blood Count 4.16L, Hemoglobin 12.0L, Hematocrit 38L , Mean Corpuscular Volume 90, Mean Corpuscular Hemoglobin 29, Mean Corpuscular Hemoglobin Concent 32, Red Cell Distribution Width 14.3, Platelet Count 310, Mean Platelet Volume 9.5, Neutrophils (%) (Auto) 95H, Lymphocytes (%) (Auto) 3L , Monocytes (%) (Auto) 2, Eosinophils (%) (Auto) 0, Basophils (%) (Auto) 0, Neutrophils # (Auto) 24.0H, Lymphocytes # (Auto) 0.7L, Monocytes # (Auto) 0.6, Eosinophils # (Auto) 0.0, Basophils # (Auto) 0.0, Sodium Level 138, Potassium Level 4.3, Chloride Level 99, Carbon Dioxide Level 27, Anion Gap 12, Blood Urea Nitrogen 36H, Creatinine 1.88H, Estimat Glomerular Filtration Rate 36, BUN/ Creatinine Ratio 19, Glucose Level 167H, Calcium Level 8.8, Phosphorus Level 3.7 , Magnesium Level 2.1 01/14/19 04:10: Blood Gas Puncture Site RIGHT RADIAL, Blood Gas Patient Temperature 97.9, Arterial Blood pH 7.43, Arterial Blood Partial Pressure CO2 49H, Arterial Blood Partial Pressure O2 56L, Arterial Blood HCO3 32H, Arterial Blood Total CO2 33.7H , Arterial Blood Oxygen Saturation 92L, Arterial Blood Base Excess 7.7H, Siva Test YES-POS, Blood Gas Ventilator Setting NO, Blood Gas Inspired Oxygen UNK Microbiology 01/13/19 Blood Culture - Preliminary, Resulted No growth 01/13/19 MRSA Screen - Final, Complete MRSA not isolated Radiology CXR 01/12: IMPRESSION: The coarse interstitial densities in the lung bases, the crowded bronchovascular markings in the right infrahilar region and the blunting of the right costophrenic angle are most likely chronic in nature. If previous exams are available they would be helpful for comparison. If there are no prior studies available for comparison and clinical concern regarding an acute abnormality persists, then a followup PA and lateral chest would be recommended. Assessment/Plan Assessment/Plan (1) Pneumonia Status: Acute Assessment & Plan: Possible, on cefepime and azithromycin. CXR with chronic findings, respiratory issues may be more related to COPD exac and influenza. Continue abx for now while cultures pending. Lactic acid neg. Does have leukocytosis but has been on steroids. Qualifiers: Qualified Codes: J18.9 - Pneumonia, unspecified organism (2) NSTEMI (non-ST elevated myocardial infarction) Status: Acute Assessment & Plan: Persistently mildly elevated troponin, on therapeutic enoxaparin, Cardiology consulted. (3) Hypertension Status: Chronic Assessment & Plan: Receiving IV treatment overnight per Cardiology, appreciate recommendations. 01/14 after initial hypertension, having hypotension. Management per critical care and Cardiology. Qualifiers: Qualified Codes: I10 - Essential (primary) hypertension (4) COPD exacerbation Status: Acute Assessment & Plan: On IV solumedrol, breathing treatments. Pulmonology consulted. (5) Influenza B Status: Acute Assessment & Plan: Tamiflu renally dosed. May not be able to take oral due to marked agitation requiring sedation at times. (6) Acute and chronic respiratory failure Status: Acute Assessment & Plan: Pulmonology consulted, appreciate recommendations. Hypercapnea improved overnight with bipap, considering vapotherm this am. Unable to do CT for PE due to allergy and CKD, not stable for V/Q scan, on therapeutic lovenox. 01/14- improved somewhat this am, is on 4 lpm at time of my exam. (7) Chronic kidney disease Status: Chronic Assessment & Plan: Stable, monitor, renally dose meds. Qualifiers: Qualified Codes: N18.3 - Chronic kidney disease, stage 3 (moderate) (8) Anxiety Status: Chronic (9) DVT prophylaxis Status: Acute Assessment & Plan: On treatment dose enoxaparin due to NSTEMI and concern for possible PE. Clinical Quality Measures DVT/VTE Risk/Contraindication: Risk Factor Score Per Nursin RFS Level Per Nursing on Admit: 4+=Very High LOTTIE ARELLANO MD Jan 14, 2019 19:19
[2019-01-14] MEDS ORDERED: fentaNYL INJECTION 100 MCG/2 ML AMP ONE (21:25)
[2019-01-14] MEDS: ATORVASTATIN 40 MG (LIPITOR) TABLET PO SCH (21:33)
[2019-01-14] MEDS ORDERED: ALPRAZolam 0.5 MG (XANAX) TAB ONE (21:56)
[2019-01-14] MEDS ORDERED: ALPRAZolam 0.5 MG (XANAX) TAB PO PRN (22:30)
[2019-01-14] MEDS: AZITHROMYCIN INJECTION 500 MG in NS (IVPB) 250 ML IV SCH (22:45)
[2019-01-14] MEDS: fentaNYL INJECTION 100 MCG/2 ML AMP IVP PRN (22:45)
[2019-01-15] VITALS (23 sets, daily range): BP systolic 77–190; BP diastolic 65–182
[2019-01-15] MEDS: fentaNYL INJECTION 100 MCG/2 ML AMP IVP PRN ×3 (01:07→05:29)
[2019-01-15] MEDS: RT-ALBUTEROL/IPRATROPIUM 3 ML (DUONEB) VIAL INH SCH ×6 (01:39→22:52)
[2019-01-15 03:45] LABS: BASOPHILS % (AUTO) 0 % (0-10); EOSINOPHILS % (AUTO) 0 % (0-10); HEMATOCRIT 39 % (40-54); HEMOGLOBIN 12.7 G/DL (13.3-17.7); LYMPHOCYTES # (AUTO) 0.6 X 10^3 (1.0-4.0); LYMPHOCYTES % (AUTO) 2 % (12-44); MEAN CORPUSCULAR HEMOGLOBIN 29 PG (25-34); MEAN CORPUSCULAR HGB CONC 33 G/DL (32-36); MEAN CORPUSCULAR VOLUME 89 FL (80-99); MEAN PLATELET VOLUME 9.2 FL (7.4-10.4); MONOCYTES # (AUTO) 1.1 X 10^3 (0.0-1.0); MONOCYTES % (AUTO) 4 % (0-12); NEUTROPHILS # (AUTO) 26.8 X 10^3 (1.8-7.8); NEUTROPHILS % (AUTO) 94 % (42-75); PLATELET COUNT 313 10^3/uL (130-400); RED CELL DISTRIBUTION WIDTH 14.9 % (10.0-14.5); WHITE BLOOD COUNT 28.5 10^3/uL (4.3-11.0)
[2019-01-15 04:08] LABS: CALCIUM 9.4 MG/DL (8.5-10.1); CREATININE SERUM 1.85 MG/DL (0.60-1.30); MAGNESIUM 2.2 MG/DL (1.8-2.4); PHOSPHORUS 3.2 MG/DL (2.3-4.7); POTASSIUM 4.4 MMOL/L (3.6-5.0)
[2019-01-15] MEDS: methylPREDNISolone 40 MG/ML (Solu-MEDROL) VIAL IV SCH ×3 (05:29→17:31)
--- NOTE | 2019-01-15 05:33 | Diagnostic Imaging Report ---
INDICATION: Dyspnea. COMPARISON: 01/14/2019 FINDINGS: Single frontal view of the chest demonstrates normal heart size and pulmonary vascularity. The lungs are hyperinflated with flattening of hemidiaphragms, but are otherwise clear. No large pleural effusion or pneumothorax is seen. The visualized osseous structures show no acute abnormalities. IMPRESSION: 1. No acute cardiopulmonary process. 2. Background COPD. Dictated by: Dictated on workstation # [id number]
--- NOTE | 2019-01-15 06:16 | Pulmonary Progress Note ---
Subjective Time Seen by a Provider: 07:56 Subjective/Events-last exam complains of severe left arm pain and SOB. Sepsis Event Evaluation Height, Weight, BMI Height: 5'10.00" Weight: 161lbs. 6.0oz. 73.446544ci; 23.0 BMI Method:Stated Focused Exam Lactate Level 01/13/19 01:20: Lactic Acid Level 1.51 Exam Exam Vital Signs Date Time Temp Pulse Resp B/P (MAP) Pulse Ox O2 Delivery O2 Flow Rate FiO2 01/15/19 05:00 79 16 152/106 (121) 97 Nasal Cannula 3.00 01/15/19 04:00 98.4 01/15/19 04:00 94 Nasal Cannula 4.00 01/15/19 04:00 80 16 179/119 (139) 99 Nasal Cannula 3.00 01/15/19 03:00 74 16 158/132 (141) 93 Nasal Cannula 3.00 01/15/19 02:00 72 14 151/113 (126) 94 Nasal Cannula 3.00 01/15/19 01:39 91 Nasal Cannula 2.00 01/15/19 01:00 73 01/15/19 01:00 72 12 130/82 (98) 91 Nasal Cannula 3.00 01/15/19 00:00 97.7 01/15/19 00:00 94 Nasal Cannula 4.00 01/15/19 00:00 86 20 150/117 (128) 95 Nasal Cannula 3.00 01/14/19 23:00 86 22 126/82 (97) 90 Nasal Cannula 3.00 01/14/19 22:12 95 Nasal Cannula 3.00 01/14/19 22:00 90 15 196/113 (140) 91 Nasal Cannula 4.00 01/14/19 21:00 75 18 164/105 (124) 97 Nasal Cannula 4.00 01/14/19 20:50 98.2 01/14/19 20:00 94 Nasal Cannula 4.00 01/14/19 20:00 78 17 164/103 (123) 96 Nasal Cannula 4.00 01/14/19 19:00 76 01/14/19 19:00 74 12 177/113 (134) 97 Nasal Cannula 4.00 01/14/19 18:58 98 Nasal Cannula 3.00 01/14/19 18:48 97 Nasal Cannula 4.00 01/14/19 18:00 70 162/100 (120) 98 Nasal Cannula 4.00 01/14/19 17:00 63 156/101 (119) 97 Nasal Cannula 4.00 01/14/19 16:00 Nasal Cannula 4.00 01/14/19 16:00 99.5 01/14/19 16:00 70 22 156/104 (121) 95 Nasal Cannula 4.00 01/14/19 16:00 94 Nasal Cannula 4.00 01/14/19 15:00 77 22 190/90 (123) 99 Nasal Cannula 4.00 01/14/19 14:29 98 Nasal Cannula 4.00 01/14/19 14:00 63 13 155/94 (114) 99 Nasal Cannula 4.00 01/14/19 13:00 65 01/14/19 13:00 77 21 169/104 (125) 97 Nasal Cannula 4.00 01/14/19 12:00 65 14 143/95 (111) 98 Nasal Cannula 4.00 01/14/19 12:00 98.6 01/14/19 12:00 Nasal Cannula 4.00 01/14/19 12:00 Nasal Cannula 4.00 01/14/19 11:00 70 20 98 Nasal Cannula 4.00 01/14/19 10:11 94 Nasal Cannula 4.00 01/14/19 10:00 71 16 150/90 (110) 99 Nasal Cannula 4.00 01/14/19 09:00 98.4 63 14 149/98 (115) 97 Nasal Cannula 4.00 01/14/19 09:00 63 14 Nasal Cannula 4.00 01/14/19 08:00 Nasal Cannula 4.00 01/14/19 08:00 94 Nasal Cannula 4.00 01/14/19 08:00 57 23 123/77 (92) Nasal Cannula 4.00 01/14/19 07:00 57 01/14/19 07:00 59 42 116/70 (85) Nasal Cannula 4.00 01/14/19 06:30 99 Nasal Cannula 4.00 I & O 01/15/19 07:00 Intake Total 2060 ml Output Total 2425 ml Balance -365 ml Height & Weight Height: 5'10.00" Weight: 161lbs. 6.0oz. 73.182617rm; 23.0 BMI Method:Stated General Appearance: No Apparent Distress, Anxious, Chronically ill HEENT: PERRL/EOMI, Pharynx Normal, Moist Mucous Membranes Neck: Full Range of Motion, Normal Inspection Respiratory: Chest Non Tender, No Accessory Muscle Use, No Respiratory Distress , Decreased Breath Sounds, Wheezing (faint) Cardiovascular: Regular Rate, Rhythm, No Edema, No Murmur, Normal Peripheral Pulses Capillary Refill: Less Than 3 Seconds Peripheral Pulses: 2+ Dorsalis Pedis (R), 2+ Left Dors-Pedis (L) Gastrointestinal: non tender, soft Extremity: Normal Capillary Refill, Normal Inspection, No Pedal Edema Neurologic/Psychiatric: Alert, Oriented x3 Results Lab Laboratory Tests 01/14/19 03:18 01/15/19 03:30 01/15/19 03:36 Assessment/Plan Assessment/Plan Acute respiratory failure -SVNs Q4 -Pt is now a DNR and refusing BiPAP -Start solumedrol 40 Q6 -Check Bilateral dopplers LE -Cant do CTA secondary to allergy and renal function. Pt is not stable enough for V/Qscan -Continue therapeutic Lovenox Pt has decreased UO and worsening renal function -Will increase IVF Influenza B -Tamiflu -Isolation LUE pain edema - Doubt compartment syndrome however pt complains of severe pain -Will check stat venous and arterial dopplers -Consult Dr. Arias - Pt does have radial pulse and good capillary refill. -Will have RN place sign that says "no labs from left arm. CHFAE -Monitor Hx of severe oxygen dependent COPD -SVNS, oxygen Metabolic encephalopathy - -Monitor -respiradol -Morphine, and D/C precedex Leukocytosis- Probably secondary to out pt steroids - No fever -Continue Cefepime, and azithromycin add vanco -Await pain cultures and MRSA swab NSTEMI -BNP is high however he has renal failure -Cardiology consulted -Theraputic lovenox -Echo pending COPDAE/asthmaAE - pt does use 3liters at home. currently using 35% via BiPAP -Solumedrol then 40 Q6 -SVNS Q4, add pulmicort BID Hypotension -Monitor Chronic renal failure -Monitor Hypokalemia, hypomag -replace ALEXANDER CHIU DO Jan 15, 2019 06:16
[2019-01-15] MEDS ORDERED: HYDROmorphone 2 MG/ML VIAL (DILAUDID) ONE (06:28)
[2019-01-15] MEDS ORDERED: morphine INJ 4 MG/ML 1 ML (VIAL/SYRINGE) IVP PRN (06:30)
[2019-01-15] MEDS: RT-BUDESONIDE NEBS 0.5 MG/2ML (PULMICORT) AMP INH SCH ×2 (06:41→19:58)
[2019-01-15] MEDS: MAGNESIUM 1 GM/100 ML IVPB 100 ML IV SCH ×4 (07:52→17:31)
[2019-01-15] MEDS: POTASSIUM CL 10MEQ/50ML IVPB 50 ML IV SCH (07:52)
[2019-01-15] MEDS: KCL 20 MEQ TAB (K-DUR) PO SCH (07:53)
[2019-01-15] MEDS: hydrALAZINE (APESOLINE) 20 MG/ML VIAL IV PRN (08:33)
[2019-01-15] MEDS: CEFEPIME INJECTION 2,000 MG in WATER (STERILE) FOR INJECTION 20 ML IV SCH ×2 (08:34→20:12)
[2019-01-15] MEDS: PANTOPRAZOLE 40 MG (PROTONIX) VIAL IV SCH (08:34)
[2019-01-15] MEDS: risperiDONE 0.25 MG (RisperDAL) TAB PO SCH ×2 (08:35→20:11)
[2019-01-15] MEDS: TICAGRELOR 90 MG TABLET (BRILINTA) PO SCH ×2 (08:35→20:11)
[2019-01-15] MEDS: meTOprolol SUCCINATE 100 MG (TOPROL XL) TAB PO SCH (08:35)
[2019-01-15] MEDS: OSELTAMIVIR 30 MG (TAMIFLU) CAPSULE PO SCH ×2 (08:36→20:11)
[2019-01-15] MEDS: amLODIPine 10 MG (NORVASC) TAB PO SCH (08:36)
[2019-01-15] MEDS: ASPIRIN E.C. 81 MG (ECOTRIN) TAB PO SCH (08:36)
[2019-01-15] MEDS: HYDROcodone/APAP 7.5 MG/325 MG (LORTAB, LORCET PLUS) TABLET PO PRN (08:37)
[2019-01-15] MEDS ORDERED: ADENOSINE 6 MG/2 ML (ADENOCARD) VIAL IV ONE (09:00)
[2019-01-15] MEDS ORDERED: morphine INJ 4 MG/ML 1 ML (VIAL/SYRINGE) ONE (09:02)
[2019-01-15] MEDS ORDERED: DILTIAZEM 125 MG/25 ML IV (CARDIZEM) IV ONE (09:02)
[2019-01-15] MEDS ORDERED: NS IV 1000 ML 1,000 ML ONE (09:07)
[2019-01-15] MEDS ORDERED: NS (IVPB) 50 ML ONE (09:09)
--- NOTE | 2019-01-15 09:12 | Diagnostic Imaging Report ---
INDICATION: Left upper extremity pain and edema. COMPARISON: None. TECHNIQUE: Duplex, soto-scale and color-flow imaging of the left upper extremity venous system was performed. FINDINGS: Left jugular and subclavian veins show no evidence of intraluminal thrombosis. The axillary, brachial, basilic and cephalic veins are patent. These vessels show normal compressibility, color flow and Doppler augmentation. IMPRESSION: Negative venous Doppler of left upper extremity. Dictated by: Dictated on workstation # [id number]
[2019-01-15] MEDS ORDERED: meTOprolol 5 MG/5 ML (LOPRESSOR) VIAL ONE (09:17)
[2019-01-15] MEDS: DILTIAZEM 125 MG/NS 100 ML IV SCH ×2 (09:20)
--- NOTE | 2019-01-15 09:22 | Pulmonary Progress Note ---
Standard Progress Note Progress Notes Time Seen by Provider: 09:00 Called to bedside emergently secondary to HR around 200 and HTN. Pt is more SOB and complaining of SOB and dry mouth. Assessment & Plan Acute SVT -Cardizem 10mg IV given x2 doses and 5mg IV of Lopressor given -Give 1 liter bolus then run NS at 100cc/hr - Start Cardizem gtt -repeat EKG once rate is more controlled. -Dr Oconnell has been notified pt SVT. Agitation with acute distress - Start Precedex gtt Acute respiratory failure- with worsening SOB -Change to NRB until pt is more stable then change to Vapotherm -SVNs Q4 -Pt is now a DNR and refusing BiPAP -Start solumedrol 40 Q6 -Check Bilateral dopplers LE -Cant do CTA secondary to allergy and renal function. Pt is not stable enough for V/Qscan -Continue therapeutic Lovenox Pt has decreased UO and worsening renal function -Will increase IVF Influenza B -Tamiflu -Isolation LUE pain edema - Doubt compartment syndrome however pt complains of severe pain -Will check stat venous and arterial dopplers -Consult Dr. Arias - Pt does have radial pulse and good capillary refill. -Will have RN place sign that says "no labs from left arm. CHFAE -Monitor Hx of severe oxygen dependent COPD -SVNS, oxygen Metabolic encephalopathy - -Monitor -respiradol -Morphine, and D/C precedex Leukocytosis- Probably secondary to out pt steroids - No fever -Continue Cefepime, and azithromycin add vanco -Await pain cultures and MRSA swab NSTEMI -BNP is high however he has renal failure -Cardiology consulted -Theraputic lovenox -Echo pending COPDAE/asthmaAE - pt does use 3liters at home. currently using 35% via BiPAP -Solumedrol then 40 Q6 -SVNS Q4, add pulmicort BID Hypotension -Monitor Chronic renal failure -Monitor Hypokalemia, hypomag -replace Critical Care: Critically Ill Patient Time spent with patient (mins): 60 Focused Exam Lactate Level 01/13/19 01:20: Lactic Acid Level 1.51 ALEXANDER CHIU DO Jan 15, 2019 09:22
[2019-01-15] MEDS: DEXMEDETOMIDINE INJECTION 1,000 MCG in NS (IVPB) 250 ML IV SCH ×4 (09:35→20:56)
[2019-01-15] MEDS: lisINopril 5 MG (PRINIVIL) TABLET PO SCH ×2 (09:47→10:33)
[2019-01-15] MEDS: HYDROmorphone 2 MG/ML VIAL (DILAUDID) IV PRN ×2 (10:10→22:51)
--- NOTE | 2019-01-15 10:12 | Progress Note-Hospitalist ---
Subjective HPI/CC On Admission Date Seen by Provider: Jan 15, 2019 Time Seen by Provider: 09:30 Subjective/Events-last exam Pt becoming more complicated. Condusion noted today. Wifew of 29 years at the bedside. Heart rate became very high up to the 200s EKG revealed atrial fibrillation Pt placed on Cardizem and Lopressor and cardiology Dr. Chatman was consulted. Pt is still having left arm pain doppler of arterial and venous will be done to evaluate for any type of vascular compromise. CPK was ordered pending at time of this note and Dr. Arias was consulted in case this was some sort of compartment syndrome so will monitor that closely. Oxygen requirement has increased but not to an intubation level. Pt originally refused to have an exam by me but then allowed me to listen to his heart and lungs. Review of Systems General: Fatigue Pulmonary: Dyspnea Musculoskeletal: arm pain Neurological: Confusion Focused Exam Lactate Level 01/13/19 01:20: Lactic Acid Level 1.51 Objective Exam Vital Signs Vital Signs Date Time Temp Pulse Resp B/P (MAP) Pulse Ox O2 Delivery O2 Flow Rate FiO2 01/15/19 20:05 96 Vapotherm 40.00 45 01/15/19 18:00 76 11 98/75 (83) 01/15/19 04:00 98.4 Capillary Refill : Less Than 3 Seconds General Appearance: WD/WN, Anxious, Chronically ill, Moderate Distress HEENT: PERRL/EOMI, Pharynx Normal, Moist Mucous Membranes Neck: Full Range of Motion, Normal Inspection Respiratory: Chest Non Tender, No Accessory Muscle Use, No Respiratory Distress , Decreased Breath Sounds, Wheezing (faint) Cardiovascular: Regular Rate, Rhythm, No Edema, No Murmur, Normal Peripheral Pulses Gastrointestinal: Normal Bowel Sounds, No Organomegaly, Non Tender, Soft Extremity: Normal Capillary Refill, Normal Inspection, No Pedal Edema, Swelling (left arm with ecchymosis) Neurologic/Psychiatric: Alert, Oriented x3, Disoriented Results/Procedures Lab Laboratory Tests 01/15/19 03:30 01/15/19 03:36 01/15/19 10:10 Patient resulted labs reviewed. Assessment/Plan Assessment and Plan Assess & Plan/Chief Complaint Assessment: Critically ill status Confusion due to metabolic encephalopathy Plan: ICU USG left arm Very complex case Becomes angry and agitated at times will monitor closely Critical Care Critically Ill Patient Diagnosis/Problems Diagnosis/Problems (1) Atrial fibrillation with rapid ventricular response Status: Acute (2) COPD exacerbation Status: Acute (3) Chronic kidney disease Status: Chronic Qualifiers: Chronic kidney disease stage: stage 3 (moderate) Qualified Codes: N18.3 - Chronic kidney disease, stage 3 (moderate) (4) Influenza B Status: Acute (5) Chronic pain Status: Chronic Qualifiers: Chronic pain type: chronic pain syndrome Qualified Codes: G89.4 - Chronic pain syndrome (6) Acute and chronic respiratory failure Status: Acute (7) Hypertension Status: Chronic Qualifiers: Hypertension type: essential hypertension Qualified Codes: I10 - Essential (primary) hypertension (8) Anxiety Status: Chronic (9) NSTEMI (non-ST elevated myocardial infarction) Status: Acute (10) Pneumonia Status: Acute Qualifiers: Pneumonia type: due to unspecified organism Laterality: unspecified laterality Lung location: unspecified part of lung Qualified Codes: J18.9 - Pneumonia, unspecified organism (11) COPD (chronic obstructive pulmonary disease) Status: Acute Qualifiers: COPD type: COPD with acute lower respiratory infection Qualified Codes: J44.0 - Chronic obstructive pulmonary disease with acute lower respiratory infection (12) DVT prophylaxis Status: Acute (13) Pain and swelling of left upper extremity Status: Acute (14) Confusion Status: Acute Clinical Quality Measures DVT/VTE Risk/Contraindication: Risk Factor Score Per Nursin RFS Level Per Nursing on Admit: 4+=Very High YANET JAIMES DO Jan 15, 2019 10:12
[2019-01-15 10:15] LABS: BASOPHILS % (AUTO) 0 % (0-10); EOSINOPHILS % (AUTO) 0 % (0-10); HEMATOCRIT 30 % (40-54); HEMOGLOBIN 9.5 G/DL (13.3-17.7); LYMPHOCYTES # (AUTO) 0.3 X 10^3 (1.0-4.0); LYMPHOCYTES % (AUTO) 1 % (12-44); MEAN CORPUSCULAR HEMOGLOBIN 29 PG (25-34); MEAN CORPUSCULAR HGB CONC 32 G/DL (32-36); MEAN CORPUSCULAR VOLUME 91 FL (80-99); MEAN PLATELET VOLUME 9.2 FL (7.4-10.4); MONOCYTES # (AUTO) 0.7 X 10^3 (0.0-1.0); MONOCYTES % (AUTO) 3 % (0-12); NEUTROPHILS # (AUTO) 21.6 X 10^3 (1.8-7.8); NEUTROPHILS % (AUTO) 95 % (42-75); PLATELET COUNT 257 10^3/uL (130-400); RED CELL DISTRIBUTION WIDTH 14.3 % (10.0-14.5); WHITE BLOOD COUNT 22.6 10^3/uL (4.3-11.0)
[2019-01-15] MEDS: DEXMEDETOMIDINE INJECTION 200 MCG in NS (IVPB) 50 ML IV SCH ×2 (10:25→12:47)
[2019-01-15] MEDS ORDERED: DILTIAZEM INJECTION 125 MG in NS (IVPB) 100 ML IV SCH (10:30)
[2019-01-15] MEDS ORDERED: NS IV 1000 ML 1,000 ML IV SCH (10:30)
[2019-01-15] MEDS ORDERED: DILTIAZEM 25 MG/5 ML INJ (CARDIZEM) VIAL IVP NR ×2 (10:30)
--- NOTE | 2019-01-15 10:31 | Diagnostic Imaging Report ---
INDICATION: Pain and swelling to the left upper extremity. FINDINGS: Predominantly biphasic waveforms throughout the left upper extremity arterial system are noted with the exception of monophasic flow in the radial artery distally. The velocities appear to be unremarkable. No high-grade stenosis or occlusion is seen. No fluid collection or mass is detected. IMPRESSION: Essentially unremarkable left upper extremity arterial Doppler with the exception of monophasic waveforms in the distal radial artery. Dictated by: Dictated on workstation # [id number]
[2019-01-15 10:34] LABS: ALBUMIN 2.2 GM/DL (3.2-4.5); BILIRUBIN,TOTAL 0.2 MG/DL (0.1-1.0); CALCIUM 6.5 MG/DL (8.5-10.1); CREATININE SERUM 1.25 MG/DL (0.60-1.30); MAGNESIUM 1.2 MG/DL (1.8-2.4); PHOSPHORUS 2.2 MG/DL (2.3-4.7); POTASSIUM 3.2 MMOL/L (3.6-5.0)
[2019-01-15 11:25] LABS: BAND NEUTROPHILS 0 %; BASOPHILS % (MANUAL) 0 %; EOSINOPHILS % (MANUAL) 0 %; LYMPHOCYTES % (MANUAL) 2 %; MONOCYTES % (MANUAL) 2 %; NEUTROPHILS % (MANUAL) 96 %; RBC MORPH NORMAL
[2019-01-15] MEDS ORDERED: CALCIUM GLUCONATE 10% INJ 4.65 MEQ in NS (IVPB) 50 ML IV ONE (11:45)
[2019-01-15] MEDS ORDERED: POTASSIUM PHOSPHATE INJ 30 MM in NS (IVPB) 250 ML IV ONE (11:45)
[2019-01-15] MEDS ORDERED: fentaNYL INJECTION 100 MCG/2 ML AMP ONE (13:07)
[2019-01-15] MEDS ORDERED: MIDAZOLAM 2 MG/2 ML (VERSED) VIAL ONE (13:08)
--- NOTE | 2019-01-15 14:30 | Cardiology Progress Note ---
Cardiology SOAP Progress Note Subjective: Complaint of shoulder pain, respiratory distress Objective: I&O/Vital Signs 01/15/19 01/15/19 01/15/19 01/15/19 03:00 04:00 04:00 04:00 Temp 98.4 Pulse 74 80 Resp 16 16 B/P (MAP) 158/132 (141) 179/119 (139) Pulse Ox 93 99 94 O2 Delivery Nasal Cannula Nasal Cannula Nasal Cannula O2 Flow Rate 3.00 3.00 4.00 01/15/19 01/15/19 01/15/19 01/15/19 05:00 06:00 06:42 07:00 Pulse 79 90 89 Resp 16 20 B/P (MAP) 152/106 (121) 188/145 (159) Pulse Ox 97 91 97 O2 Delivery Nasal Cannula Nasal Cannula Nasal Cannula O2 Flow Rate 3.00 2.00 2.00 01/15/19 01/15/19 01/15/19 07:00 08:00 09:22 Pulse 85 98 170 Resp 22 B/P (MAP) 190/182 (185) 177/123 (141) Pulse Ox 100 93 O2 Delivery Nasal Cannula Nasal Cannula O2 Flow Rate 2.00 2.00 01/15/19 00:00 Intake Total 2900 ml Output Total 1825 ml Balance 1075 ml Weight (Pounds): 161 Weight (Ounces): 0.0 Weight (Calculated Kilograms): 73.750633 Constitutional: AAO x 3 Respiratory: No accessory muscle use; respiratory distress; No chest tender, No chest expansion is symmetric; chest is bilaterally symmetric; No lungs clear to percussion; lungs clear to auscultation, crackles; No rhonchi, No rales, No stridor, No wheezing, No pleural rub, No other Cardiovascular: regular rate-rhythm; No irregularly irregular, No extra beats, No parasternal heave is noted, No JVD, No edema, No bradycardia, No tachycardia , No point of maximal impulse, No cardiac thrills are palpable; S1 and S2; No gallop/S3, No gallop/S4, No diastolic murmur, No systolic murmur, No friction rub, No click, No other Gastrointestional: No tender, No soft, No round, No distended, No pulsatile mass, No organomegaly, No guarding, No rebound, No tenderness, No hernia, No mass, No audible bowel sounds, No abnormal bowel sounds, No abdominal bruits, No spleenomegaly, No other Extremities: No normal range of motion, No non-tender, No normal inspection, No pedal edema, No calf tenderness, No normal capillary refill, No pelvis stable , No calf tenderness, No inflammation, No pedal edema, No slow capillary refill , No swelling, No other, No abrasion, No clubbing, No cyanosis, No ecchymosis, No laceration, No no lower extremity edema bilateral, No significant edema, No tenderness, No wound Neurologic/Psychiatric: no motor/sensory deficits, alert, normal mood/affect, oriented x 3, power is 5/5 both on sides Skin: No normal color, No warm/dry, No cyanosis, No cool, No diaphoresis, No damp, No ecchymosis, No jaundice, No mottled, No pallor, No rash, No tattoos/ piercings, No ulcerations, No rash on exposed areas, No ulcerations on exposed areas, No other Results/Procedures: Labs Laboratory Tests 01/15/19 03:30: White Blood Count 28.5H, Red Blood Count 4.39, Hemoglobin 12.7L, Hematocrit 39L , Mean Corpuscular Volume 89, Mean Corpuscular Hemoglobin 29, Mean Corpuscular Hemoglobin Concent 33, Red Cell Distribution Width 14.9H, Platelet Count 313, Mean Platelet Volume 9.2, Neutrophils (%) (Auto) 94H, Lymphocytes (%) (Auto) 2L , Monocytes (%) (Auto) 4, Eosinophils (%) (Auto) 0, Basophils (%) (Auto) 0, Neutrophils # (Auto) 26.8H, Lymphocytes # (Auto) 0.6L, Monocytes # (Auto) 1.1H, Eosinophils # (Auto) 0.0, Basophils # (Auto) 0.0 01/15/19 03:36: Sodium Level 140, Potassium Level 4.4, Chloride Level 100, Carbon Dioxide Level 28, Anion Gap 12, Blood Urea Nitrogen 39H, Creatinine 1.85H, Estimat Glomerular Filtration Rate 37, BUN/Creatinine Ratio 21, Glucose Level 154H, Calcium Level 9.4, Phosphorus Level 3.2, Magnesium Level 2.2, Troponin I 0.090H 01/15/19 09:19: Glucometer 221H 01/15/19 10:10: White Blood Count 22.6H, Red Blood Count 3.26L, Hemoglobin 9.5#L, Hematocrit 30L , Mean Corpuscular Volume 91, Mean Corpuscular Hemoglobin 29, Mean Corpuscular Hemoglobin Concent 32, Red Cell Distribution Width 14.3, Platelet Count 257, Mean Platelet Volume 9.2, Neutrophils (%) (Auto) 95H, Lymphocytes (%) (Auto) 1L , Monocytes (%) (Auto) 3, Eosinophils (%) (Auto) 0, Basophils (%) (Auto) 0, Neutrophils # (Auto) 21.6H, Lymphocytes # (Auto) 0.3L, Monocytes # (Auto) 0.7, Eosinophils # (Auto) 0.0, Basophils # (Auto) 0.0, Sodium Level 141, Potassium Level 3.2L, Chloride Level 112#H, Carbon Dioxide Level 24, Anion Gap 5, Blood Urea Nitrogen 32H, Creatinine 1.25, Estimat Glomerular Filtration Rate 58, BUN/ Creatinine Ratio 26, Glucose Level 163H, Calcium Level 6.5L, Phosphorus Level 2.2L, Magnesium Level 1.2L, Troponin I 0.073H, Neutrophils % (Manual) 96, Lymphocytes % (Manual) 2, Monocytes % (Manual) 2, Eosinophils % (Manual) 0, Basophils % (Manual) 0, Band Neutrophils 0, Blood Morphology Comment NORMAL, Corrected Calcium 7.9L, Total Bilirubin 0.2, Aspartate Amino Transf (AST/SGOT) 12, Alanine Aminotransferase (ALT/SGPT) 12, Alkaline Phosphatase 50, Total Protein 4.0L, Albumin 2.2L Microbiology 01/13/19 Blood Culture - Preliminary, Resulted No growth 01/13/19 MRSA Screen - Final, Complete MRSA not isolated A/P: Assessment/Dx: Non-STEMI, Acute systolic congestive heart failure, Severe respiratory failure, hypercarbic Severe COPD, Possible pneumonia, COPD exacerbation, Acute kidney injury, Plan: He wants to be full code and wants everything to be done. He consents to coronary angiography, however he needs to improve from his respiratory status before coronary angiography can be performed. Also we would need anesthesia/ Dr. Wall's assistance since coronary angiography will not be able to be performed in moderate conscious sedation. Non-STEMI, continue aspirin, Brilinta and Lovenox. Lipitor. Improving troponin. We will defer coronary angiography to the patient is more stable pulmonary vitale. Atrial fibrillation with rapid ventricular response, given Cardizem and Lopressor. On full dose Lovenox. Better rate control. We will try to convert to by mouth Cardizem. I'm avoiding Lopressor because of severe COPD. Acute systolic congestive heart failure, IV Lasix is recommended. Elevated BNP. Echocardiogram done 01/13/2019 shows an EF of 30-35 percent. Dilated LV with mild pulmonary hypertension. Severe respiratory failure, hypercarbic, likely multifactorial due to acute systolic congestive heart failure, severe COPD, influenza. Defer to Dr. Wall. Severe COPD, Possible pneumonia, COPD exacerbation, Acute kidney injury, improving gradually. Likely underlying chronic kidney disease. Thank you for your consultation. Please call me if you have any questions. Cynthia Wang MD, FACP, FACC, FSCAI, FHRS, CCDS Interventional Cardiology Cardiac Electrophysiology Vascular Medicine and Endovascular Interventions Focused Exam Lactate Level 01/13/19 01:20: Lactic Acid Level 1.51 Viji WANG MD Jan 15, 2019 2:30 pm
--- NOTE | 2019-01-15 14:49 | Diagnostic Imaging Report ---
INDICATION: Line placement. TECHNIQUE: Single view chest at 2:25 PM. CORRELATION STUDY: 01/15/2019. FINDINGS: Right-sided central line has been placed with the tip somewhat obscured by overlying monitor leads and defibrillator pad but appears to project over the low SVC near the cavoatrial junction. The heart size and mediastinum appearing generally stable. Lung jackson are hyperinflated with development of areas of likely atelectasis at the lung bases, right greater than left. Emphysematous changes in the remaining lung jackson. Very questionable area of nodularity in the right mid to lower lung field measuring 11 mm. IMPRESSION: 1. Right-sided central line has been placed with the tip projecting over the low SVC. 2. Hyperinflated lung jackson reflecting COPD with new areas of atelectasis at the lung bases, right greater than left. Very questionable nodule in the right mid to lower lung field. Followup imaging is recommended when the patient is clinically able. Dictated by: Dictated on workstation # [id number]
[2019-01-15] MEDS: NS IV 1000 ML 1,000 ML IV SCH ×2 (15:35→20:56)
[2019-01-15] MEDS ORDERED: CALCIUM GLUCONATE 10% INJ 4.65 MEQ in NS (IVPB) 50 ML IV NR (16:30)
[2019-01-15] MEDS ORDERED: CALC-927 PO (16:47)
[2019-01-15] MEDS ORDERED: PRD10T PO (16:47)
[2019-01-15] MEDS ORDERED: AMLO5TAB9 PO (16:47)
[2019-01-15] MEDS ORDERED: GUAI1TAB22 PO (16:47)
[2019-01-15] MEDS ORDERED: MULT-974 PO (16:47)
[2019-01-15] MEDS ORDERED: CRAN1CAP7 PO (16:47)
[2019-01-15] MEDS ORDERED: DOCU-143 PO (16:47)
--- NOTE | 2019-01-15 16:51 | NUR ---
UPDATED MED REC WITH THE MED LIST ON THE PATIENTS CHART WELL COMPARING WITH THE EXT MED HX. THE HOME MED LIST BROUGHT IN STATES VENLAFAXINE 75MG DAILY HOWEVER IT WAS FILLED TO DAY DAILY FOR 1 WEEK THEN INCREASE TO BID, I PUT IT ON THE MED REC BID. ALSO THE MED LIST STATES ASPIRIN BID, IT DOSE NOT SPECIFICALLY STATE WHAT STRENGTH, THE LIST FROM THE DR. OFFICE STATES ASPIRIN 325MG Q4H PRN, I PUT IT ON THE MED REC ASPIRIN 325MG BID. THE LIST FROM THE DR. OFFICE ALSO LISTS LISINOPRIL 2.5MG DAILY HOWEVER IT IS NOT ON THE HOME MED LIST AND HAS NOT BEEN FILLED SINCE 08-28-18 #90 ACCORDING TO THE EXT MED HX. I DID NOT INCLUDE IT ON THE MED REC AT THIS TIME.
[2019-01-15] MEDS: ENOXAPARIN 80 MG/0.8 ML (LOVENOX) SYR SC SCH ×2 (19:04→20:19)
--- NOTE | 2019-01-15 19:55 | NUR ---
0800 During assessment this morning, patient had a noticeably difficult time recalling certain things when questioned. Patient was able to say his name, year and location as hospital.
--- NOTE | 2019-01-15 19:57 | NUR ---
TIMELINE NOTE: (Times as accurate as possible, some are estimated) 0900 Around this time patient's heartrate jumped to 190's-210. Unable to identify specifics of rhythm due to high rate. Dr. Wall notified. DR. Chatman also notified via text message. [address] Wall here and orders received. Dr. Chatman also reponding via ship laborer RN. 4mg Morphine given for patient's pain. 10mg Cardizem IVP given. 907 Nonrebreather placed on patient. 916 Precedex drip started for agitation/anxiety/restlessness. 919 10mg Cardizem IVP Bolus given. 924 Cardizem drip started. 934 5mg Lopressor IV given per DR. Chatman's orders. 945 Patient rates Left shoulder pain a 07/05. Dr. Wall and Dr. Chatman notified immediately. Orders received to Draw labs, including a troponin and have lab result troponin from Early AM labs as well. A 3rd EKG done at this time. 1001 1 sublingual Nitro given 1030 HR now 107 on Cardizem and Precedex drip. Patient still agitated at times but much improved. VSS at this time. 1006 2nd sublingual Nitro given. patient still in pain and restless/agitated at times.
[2019-01-15] MEDS: ATORVASTATIN 40 MG (LIPITOR) TABLET PO SCH (20:11)
--- NOTE | 2019-01-15 20:11 | Progress Note ---
Subjective Date Seen by a Provider: Jan 15, 2019 Time Seen by a Provider: 14:50 Subjective/Events-last exam Patient having shortness of breath. Patient left arm feeling better today. No numbness or tingling. He can move digits and no difficulty with sensation. Focused Exam Lactate Level 01/13/19 01:20: Lactic Acid Level 1.51 Objective Exam Vital Signs Date Time Temp Pulse Resp B/P (MAP) Pulse Ox O2 Delivery O2 Flow Rate FiO2 01/15/19 20:05 96 Vapotherm 40.00 45 01/15/19 18:00 76 11 98/75 (83) 96 Vapotherm 45.00 40.00 01/15/19 17:00 90 12 118/71 (87) 97 Vapotherm 45.00 40.00 01/15/19 15:23 98 Vapotherm 40.00 50 01/15/19 14:00 67 19 101/90 (94) 99 Nasal Cannula 2.00 01/15/19 13:00 97 9 77/69 (72) 99 Nasal Cannula 2.00 01/15/19 12:00 95 13 89/71 (77) 99 Nasal Cannula 2.00 01/15/19 11:00 93 13 123/66 (85) 98 Nasal Cannula 2.00 01/15/19 10:00 85 16 98/65 (76) 98 Nasal Cannula 2.00 01/15/19 09:22 170 01/15/19 09:00 79 113/95 (101) 94 Nasal Cannula 2.00 01/15/19 08:00 94 Nasal Cannula 4.00 01/15/19 08:00 98 22 177/123 (141) 93 Nasal Cannula 2.00 01/15/19 07:00 85 20 190/182 (185) 100 Nasal Cannula 2.00 01/15/19 07:00 89 01/15/19 06:42 97 Nasal Cannula 2.00 01/15/19 06:00 90 20 188/145 (159) 91 Nasal Cannula 2.00 01/15/19 05:00 79 16 152/106 (121) 97 Nasal Cannula 3.00 01/15/19 04:00 98.4 01/15/19 04:00 94 Nasal Cannula 4.00 01/15/19 04:00 80 16 179/119 (139) 99 Nasal Cannula 3.00 01/15/19 03:00 74 16 158/132 (141) 93 Nasal Cannula 3.00 01/15/19 02:00 72 14 151/113 (126) 94 Nasal Cannula 3.00 01/15/19 01:39 91 Nasal Cannula 2.00 01/15/19 01:00 73 01/15/19 01:00 72 12 130/82 (98) 91 Nasal Cannula 3.00 01/15/19 00:00 97.7 01/15/19 00:00 94 Nasal Cannula 4.00 01/15/19 00:00 86 20 150/117 (128) 95 Nasal Cannula 3.00 01/14/19 23:00 86 22 126/82 (97) 90 Nasal Cannula 3.00 01/14/19 22:12 95 Nasal Cannula 3.00 01/14/19 22:00 90 15 196/113 (140) 91 Nasal Cannula 4.00 01/14/19 21:00 75 18 164/105 (124) 97 Nasal Cannula 4.00 01/14/19 20:50 98.2 I & O 01/15/19 07:00 Intake Total 4410 ml Output Total 2925 ml Balance 1485 ml Capillary Refill : Less Than 3 Seconds General Appearance: WD/WN, Anxious, Chronically ill, Moderate Distress HEENT: PERRL/EOMI, Pharynx Normal, Moist Mucous Membranes Neck: Full Range of Motion, Normal Inspection Respiratory: Chest Non Tender, No Accessory Muscle Use, No Respiratory Distress , Decreased Breath Sounds Cardiovascular: Regular Rate, Rhythm, No Edema, No Murmur, Normal Peripheral Pulses Peripheral Pulses: 2+ Dorsalis Pedis (R), 2+ Left Dors-Pedis (L) Gastrointestinal: non tender, soft Extremity: Normal Capillary Refill, Normal Inspection, No Pedal Edema, Swelling (left arm with ecchymosis, softer palpable pulses, sensation intact and moves without pain.) Neurologic/Psychiatric: Alert, Oriented x3 Skin: Ecchymosis (left forearm) Lymphatic: No Adenopathy Results Lab Laboratory Tests 01/15/19 03:30: White Blood Count 28.5H, Red Blood Count 4.39, Hemoglobin 12.7L, Hematocrit 39L , Mean Corpuscular Volume 89, Mean Corpuscular Hemoglobin 29, Mean Corpuscular Hemoglobin Concent 33, Red Cell Distribution Width 14.9H, Platelet Count 313, Mean Platelet Volume 9.2, Neutrophils (%) (Auto) 94H, Lymphocytes (%) (Auto) 2L , Monocytes (%) (Auto) 4, Eosinophils (%) (Auto) 0, Basophils (%) (Auto) 0, Neutrophils # (Auto) 26.8H, Lymphocytes # (Auto) 0.6L, Monocytes # (Auto) 1.1H, Eosinophils # (Auto) 0.0, Basophils # (Auto) 0.0 01/15/19 03:36: Sodium Level 140, Potassium Level 4.4, Chloride Level 100, Carbon Dioxide Level 28, Anion Gap 12, Blood Urea Nitrogen 39H, Creatinine 1.85H, Estimat Glomerular Filtration Rate 37, BUN/Creatinine Ratio 21, Glucose Level 154H, Calcium Level 9.4, Phosphorus Level 3.2, Magnesium Level 2.2, Troponin I 0.090H 01/15/19 09:19: Glucometer 221H 01/15/19 10:10: White Blood Count 22.6H, Red Blood Count 3.26L, Hemoglobin 9.5#L, Hematocrit 30L , Mean Corpuscular Volume 91, Mean Corpuscular Hemoglobin 29, Mean Corpuscular Hemoglobin Concent 32, Red Cell Distribution Width 14.3, Platelet Count 257, Mean Platelet Volume 9.2, Neutrophils (%) (Auto) 95H, Lymphocytes (%) (Auto) 1L , Monocytes (%) (Auto) 3, Eosinophils (%) (Auto) 0, Basophils (%) (Auto) 0, Neutrophils # (Auto) 21.6H, Lymphocytes # (Auto) 0.3L, Monocytes # (Auto) 0.7, Eosinophils # (Auto) 0.0, Basophils # (Auto) 0.0, Sodium Level 141, Potassium Level 3.2L, Chloride Level 112#H, Carbon Dioxide Level 24, Anion Gap 5, Blood Urea Nitrogen 32H, Creatinine 1.25, Estimat Glomerular Filtration Rate 58, BUN/ Creatinine Ratio 26, Glucose Level 163H, Calcium Level 6.5L, Phosphorus Level 2.2L, Magnesium Level 1.2L, Troponin I 0.073H, Neutrophils % (Manual) 96, Lymphocytes % (Manual) 2, Monocytes % (Manual) 2, Eosinophils % (Manual) 0, Basophils % (Manual) 0, Band Neutrophils 0, Blood Morphology Comment NORMAL, Corrected Calcium 7.9L, Total Bilirubin 0.2, Aspartate Amino Transf (AST/SGOT) 12, Alanine Aminotransferase (ALT/SGPT) 12, Alkaline Phosphatase 50, Total Protein 4.0L, Albumin 2.2L Microbiology 01/13/19 Blood Culture - Preliminary, Resulted No growth 01/13/19 MRSA Screen - Final, Complete MRSA not isolated Assessment/Plan Assessment/Plan Assessment/Plan left upper extremity pain. i do not believe patient has compartment syndrome at this time pneumonia nstemi patient anticoagulated which after abg he had fair amount of bleeding into left forearm. He has been instructed before me seeing him to use ice packs which he is refusing to do. no surgical intervention at this time patient was instructed that if he has any change to the left arm he should let the nurses know immediately so it can be reevaluated. will sign off at this time, call if needed. Clinical Quality Measures DVT/VTE Risk/Contraindication: Risk Factor Score Per Nursin RFS Level Per Nursing on Admit: 4+=Very High ALEX CADE DO Jan 15, 2019 20:11
[2019-01-16] VITALS (39 sets, daily range): BP systolic 80–166; BP diastolic 54–92
[2019-01-16] MEDS: AZITHROMYCIN INJECTION 500 MG in NS (IVPB) 250 ML IV SCH ×2 (00:03→23:14)
[2019-01-16] MEDS: methylPREDNISolone 40 MG/ML (Solu-MEDROL) VIAL IV SCH ×5 (00:03→23:09)
[2019-01-16] MEDS: RT-ALBUTEROL/IPRATROPIUM 3 ML (DUONEB) VIAL INH SCH ×6 (02:53→23:02)
[2019-01-16] MEDS: HYDROmorphone 2 MG/ML VIAL (DILAUDID) IV PRN ×4 (03:25→23:00)
[2019-01-16 03:35] LABS: BASOPHILS % (AUTO) 0 % (0-10); EOSINOPHILS % (AUTO) 0 % (0-10); HEMATOCRIT 33 % (40-54); HEMOGLOBIN 10.4 G/DL (13.3-17.7); LYMPHOCYTES # (AUTO) 0.4 X 10^3 (1.0-4.0); LYMPHOCYTES % (AUTO) 2 % (12-44); MEAN CORPUSCULAR HEMOGLOBIN 29 PG (25-34); MEAN CORPUSCULAR HGB CONC 32 G/DL (32-36); MEAN CORPUSCULAR VOLUME 91 FL (80-99); MEAN PLATELET VOLUME 9.2 FL (7.4-10.4); MONOCYTES # (AUTO) 0.6 X 10^3 (0.0-1.0); MONOCYTES % (AUTO) 3 % (0-12); NEUTROPHILS % (AUTO) 96 % (42-75); PLATELET COUNT 236 10^3/uL (130-400); RED CELL DISTRIBUTION WIDTH 14.6 % (10.0-14.5); WHITE BLOOD COUNT 21.9 10^3/uL (4.3-11.0)
[2019-01-16 03:57] LABS: CALCIUM 8.4 MG/DL (8.5-10.1); CREATININE SERUM 1.74 MG/DL (0.60-1.30); MAGNESIUM 2.5 MG/DL (1.8-2.4); PHOSPHORUS 5.3 MG/DL (2.3-4.7); POTASSIUM 4.7 MMOL/L (3.6-5.0)
--- NOTE | 2019-01-16 06:00 | Pulmonary Progress Note ---
Subjective Time Seen by a Provider: 06:01 Subjective/Events-last exam Pt refused BiPAP last night. Sepsis Event Evaluation Height, Weight, BMI Height: 5'10.00" Weight: 161lbs. 0.0oz. 73.513882mz; 23.0 BMI Method:Stated Exam Exam Vital Signs Date Time Temp Pulse Resp B/P (MAP) Pulse Ox O2 Delivery O2 Flow Rate FiO2 01/16/19 05:00 82 7 133/75 (94) 97 Room Air 4.00 01/16/19 04:00 90 8 105/74 (84) 90 Room Air 4.00 01/16/19 04:00 97.2 01/16/19 04:00 94 Vapotherm 40.00 45 01/16/19 03:00 80 16 113/88 (96) 97 Room Air 01/16/19 02:55 99 Vapotherm 40.00 45 01/16/19 02:00 77 35 107/80 (89) 99 Room Air 01/16/19 01:00 84 18 114/76 (89) 99 NIV Bilevel 30.00 01/16/19 01:00 84 01/16/19 00:09 97.1 01/16/19 00:00 94 Vapotherm 40.00 45 01/16/19 00:00 101 12 101/87 (92) 93 NIV Bilevel 30.00 01/15/19 23:01 91 24 () 95 NIV Bilevel 30.00 01/15/19 23:01 96 15 94 30.00 01/15/19 23:00 96 11 109/74 (86) 96 Vapotherm 45.00 40.00 01/15/19 22:00 96 14 138/84 (102) 95 Vapotherm 45.00 40.00 01/15/19 21:00 96 11 111/75 (87) 97 Vapotherm 45.00 40.00 01/15/19 20:05 96 Vapotherm 40.00 45 01/15/19 20:03 87 18 140/86 (104) 96 Vapotherm 45.00 40.00 01/15/19 20:00 94 Vapotherm 40.00 45 01/15/19 20:00 97.4 01/15/19 19:00 96 12 113/76 (88) 91 Vapotherm 45.00 40.00 01/15/19 19:00 96 01/15/19 18:00 76 11 98/75 (83) 96 Vapotherm 45.00 40.00 01/15/19 17:00 90 12 118/71 (87) 97 Vapotherm 45.00 40.00 01/15/19 16:00 94 Vapotherm 40.00 60 01/15/19 16:00 97.3 Vapotherm 60.00 40.00 01/15/19 15:23 98 Vapotherm 40.00 50 01/15/19 14:00 67 19 101/90 (94) 99 Nasal Cannula 2.00 01/15/19 13:20 89 01/15/19 13:00 97 9 77/69 (72) 99 Nasal Cannula 2.00 01/15/19 13:00 81 01/15/19 12:00 94 Vapotherm 40.00 60 01/15/19 12:00 95 13 89/71 (77) 99 Nasal Cannula 2.00 01/15/19 12:00 97.4 01/15/19 11:00 93 13 123/66 (85) 98 Nasal Cannula 2.00 01/15/19 10:00 85 16 98/65 (76) 98 Nasal Cannula 2.00 01/15/19 09:22 170 01/15/19 09:00 79 113/95 (101) 94 Nasal Cannula 2.00 01/15/19 08:00 94 Nasal Cannula 4.00 01/15/19 08:00 97.7 01/15/19 08:00 98 22 177/123 (141) 93 Nasal Cannula 2.00 01/15/19 07:00 85 20 190/182 (185) 100 Nasal Cannula 2.00 01/15/19 07:00 89 01/15/19 06:42 97 Nasal Cannula 2.00 01/15/19 06:00 90 20 188/145 (159) 91 Nasal Cannula 2.00 I & O 01/16/19 07:00 Intake Total 6000 ml Output Total 1575 ml Balance 4425 ml Height & Weight Height: 5'10.00" Weight: 161lbs. 0.0oz. 73.404984hu; 23.0 BMI Method:Stated General Appearance: WD/WN, Anxious, Chronically ill, Moderate Distress HEENT: PERRL/EOMI, Pharynx Normal, Moist Mucous Membranes Neck: Full Range of Motion, Normal Inspection Respiratory: Chest Non Tender, No Accessory Muscle Use, No Respiratory Distress , Decreased Breath Sounds, Wheezing (faint) Cardiovascular: Regular Rate, Rhythm, No Edema, No Murmur, Normal Peripheral Pulses Capillary Refill: Less Than 3 Seconds Peripheral Pulses: 2+ Dorsalis Pedis (R), 2+ Left Dors-Pedis (L) Gastrointestinal: non tender, soft Extremity: Normal Capillary Refill, Normal Inspection, No Pedal Edema, Swelling (left arm with ecchymosis) Neurologic/Psychiatric: Alert, Oriented x3, Disoriented Skin: Ecchymosis (left forearm) Lymphatic: No Adenopathy Results Lab Laboratory Tests 01/15/19 03:30 01/15/19 03:36 01/15/19 10:10 01/16/19 03:26 Assessment/Plan Assessment/Plan Agitation with acute distress - Start Precedex gtt Acute respiratory failure- with worsening SOB -Check ABG - Vapotherm currently. Pt was refusing BiPAP last night -SVNs Q4 -solumedrol 40 Q6 AFIB RVR - Cardizem gtt -Cardiology following Acute on chronic renal failure - IVF curently NS at 100cc/hr -Monitor Influenza B -Tamiflu -Isolation LUE pain edema - Doubt compartment syndrome however pt complains of severe pain -Will check stat venous and arterial dopplers -Dr. Arias following - Pt does have radial pulse and good capillary refill. -Will have RN place sign that says "no labs from left arm. CHFAE -Monitor Hx of severe oxygen dependent COPD -SVNS, oxygen Metabolic encephalopathy - -Monitor -respiradol -Morphine, and D/C precedex Leukocytosis- Probably secondary to out pt steroids - No fever -Continue Cefepime, and azithromycin add vanco -Await pain cultures and MRSA swab NSTEMI -BNP is high however he has renal failure -Cardiology consulted -Possible cath tomorrow -Theraputic lovenox -Echo pending COPDAE/asthmaAE - pt does use 3liters at home. currently using 35% via BiPAP -Solumedrol then 40 Q6 -SVNS Q4, add pulmicort BID Chronic renal failure -Monitor Hypokalemia, hypomag -replace Prognosis is guarded. Will consult hospice for education. ALEXANDER CHIU DO Jan 16, 2019 06:00
[2019-01-16] MEDS: RT-BUDESONIDE NEBS 0.5 MG/2ML (PULMICORT) AMP INH SCH ×2 (06:19→19:03)
[2019-01-16 06:22] LABS: ABG BASE EXCESS 2.8 MMOL/L (-2.5-2.5); ABG OXYGEN SATURATION 98 % (94-100); ABG PCO2 54 MMHG (35-45); ABG PO2 95 MMHG (79-93)
[2019-01-16 06:25] LABS: ABG PH 7.33 (7.37-7.43); ALLENS TEST YES-POS
[2019-01-16 06:26] LABS: INSPIRED O2 45%; PATIENT TEMP 97.2; VENTILATOR NO
--- NOTE | 2019-01-16 07:21 | Diagnostic Imaging Report ---
EXAM: CHEST 1 VIEW, AP/PA ONLY INDICATION: Dyspnea. COMPARISON: Chest radiograph 01/15/2019. FINDINGS: Cardiomegaly. Normal central pulmonary vascularity. No focal pulmonary opacity, pleural effusion or pneumothorax. Right PICC tip low SVC. No acute osseous findings IMPRESSION: Stable exam including cardiomegaly. Dictated by: Dictated on workstation # [id number]
[2019-01-16] MEDS: MAGNESIUM 1 GM/100 ML IVPB 100 ML IV SCH (07:41)
[2019-01-16] MEDS: POTASSIUM CL 10MEQ/50ML IVPB 50 ML IV SCH (07:41)
[2019-01-16] MEDS: KCL 20 MEQ TAB (K-DUR) PO SCH (07:41)
[2019-01-16] MEDS: CEFEPIME INJECTION 2,000 MG in WATER (STERILE) FOR INJECTION 20 ML IV SCH (08:02)
[2019-01-16] MEDS: TICAGRELOR 90 MG TABLET (BRILINTA) PO SCH ×2 (08:03→19:54)
[2019-01-16] MEDS: PANTOPRAZOLE 40 MG (PROTONIX) VIAL IV SCH (08:03)
[2019-01-16] MEDS: DILTIAZEM 120 MG (CARDIZEM CD) CAP PO SCH (08:03)
[2019-01-16] MEDS: ASPIRIN E.C. 81 MG (ECOTRIN) TAB PO SCH (08:04)
[2019-01-16] MEDS: amLODIPine 10 MG (NORVASC) TAB PO SCH (08:04)
[2019-01-16] MEDS: meTOprolol SUCCINATE 100 MG (TOPROL XL) TAB PO SCH (08:04)
[2019-01-16] MEDS: OSELTAMIVIR 30 MG (TAMIFLU) CAPSULE PO SCH ×2 (08:04→19:54)
[2019-01-16] MEDS: ENOXAPARIN 80 MG/0.8 ML (LOVENOX) SYR SC SCH ×2 (08:04→21:41)
[2019-01-16] MEDS: risperiDONE 0.25 MG (RisperDAL) TAB PO SCH ×3 (08:04→21:43)
[2019-01-16] MEDS: DEXMEDETOMIDINE INJECTION 1,000 MCG in NS (IVPB) 250 ML IV SCH ×2 (08:27→17:59)
[2019-01-16] MEDS: NS IV 1000 ML 1,000 ML IV SCH (08:29)
[2019-01-16] MEDS: HYDROcodone/APAP 7.5 MG/325 MG (LORTAB, LORCET PLUS) TABLET PO PRN ×2 (08:36→16:59)
[2019-01-16] MEDS ORDERED: LIDOCAINE 1% INJ 20 ML 20 ML VIAL ONE (10:00)
--- NOTE | 2019-01-16 10:07 | Progress Note-Hospitalist ---
Subjective HPI/CC On Admission Date Seen by Provider: Jan 16, 2019 Time Seen by Provider: 09:30 Subjective/Events-last exam Pt very belligerent and agitated and tachypneic Likely needs intubation Pt in reality is a hospice candidate but he will not hear of that Needs an arterial line to check ABGs Pt cannot undergo cardiac catheterization until his respiratory status is stable Review of Systems Pulmonary: Dyspnea Objective Exam Vital Signs Vital Signs Date Time Temp Pulse Resp B/P (MAP) Pulse Ox O2 Delivery O2 Flow Rate FiO2 01/16/19 21:05 85 12 82/54 (63) 96 Vapotherm 45.00 20.00 01/16/19 19:10 45 01/16/19 12:13 97.6 Capillary Refill : Less Than 3 Seconds General Appearance: Anxious, Chronically ill, Severe Distress HEENT: PERRL/EOMI, Pharynx Normal, Moist Mucous Membranes Neck: Full Range of Motion, Normal Inspection Respiratory: Chest Non Tender, No Accessory Muscle Use, No Respiratory Distress , Decreased Breath Sounds, Wheezing (faint) Cardiovascular: Regular Rate, Rhythm, No Edema, No Murmur, Normal Peripheral Pulses Gastrointestinal: Normal Bowel Sounds, No Organomegaly, Non Tender, Soft Extremity: Normal Capillary Refill, Normal Inspection, No Pedal Edema Neurologic/Psychiatric: Alert, Oriented x3 Skin: Ecchymosis (left forearm) Lymphatic: No Adenopathy Results/Procedures Lab Laboratory Tests 01/16/19 03:26 Patient resulted labs reviewed. Assessment/Plan Assessment and Plan Assess & Plan/Chief Complaint Assessment: Critically ill status Confusion due to metabolic encephalopathy Plan: ICU USG left arm Very complex case Becomes angry and agitated at times will monitor closely Critical Care Critically Ill Patient Diagnosis/Problems Diagnosis/Problems (1) Atrial fibrillation with rapid ventricular response Status: Acute (2) COPD exacerbation Status: Acute (3) Chronic kidney disease Status: Chronic Qualifiers: Chronic kidney disease stage: stage 3 (moderate) Qualified Codes: N18.3 - Chronic kidney disease, stage 3 (moderate) (4) Influenza B Status: Acute (5) Chronic pain Status: Chronic Qualifiers: Chronic pain type: chronic pain syndrome Qualified Codes: G89.4 - Chronic pain syndrome (6) Acute and chronic respiratory failure Status: Acute (7) Hypertension Status: Chronic Qualifiers: Hypertension type: essential hypertension Qualified Codes: I10 - Essential (primary) hypertension (8) Anxiety Status: Chronic (9) NSTEMI (non-ST elevated myocardial infarction) Status: Acute (10) Pneumonia Status: Acute Qualifiers: Pneumonia type: due to unspecified organism Laterality: unspecified laterality Lung location: unspecified part of lung Qualified Codes: J18.9 - Pneumonia, unspecified organism (11) COPD (chronic obstructive pulmonary disease) Status: Acute Qualifiers: COPD type: COPD with acute lower respiratory infection Qualified Codes: J44.0 - Chronic obstructive pulmonary disease with acute lower respiratory infection (12) DVT prophylaxis Status: Acute (13) Pain and swelling of left upper extremity Status: Acute (14) Confusion Status: Acute Clinical Quality Measures DVT/VTE Risk/Contraindication: Risk Factor Score Per Nursin RFS Level Per Nursing on Admit: 4+=Very High YANET JAIMES DO Jan 16, 2019 10:07
--- NOTE | 2019-01-16 10:15 | NUR ---
FOUNDRY EQUIPMENT MECHANIC to room et Rt radial art line placed et connected to bedside monitoring
--- NOTE | 2019-01-16 10:16 | NUR ---
PALLIATIVE CARE RN responded to a hospice consult for hospice discussion and code status. Patient is agitated but agreeable to visit. He was, throughout the visit, verbally inappropriate with immediate apologies. He is a very angry man. He believes that we want to intubate him to "shut him up". He asks repeatedly if he is "going to " and then he verbalizes that he wants to live but then is resistant to treatment. He has a large hematoma of his left arm believed from ABG draw. He doesn't believe it was an accident and when I talked to him about his need to trust that we are not, in fact, trying to hurt him rather that we are trying to help he gets indignant and disbelieving. I pointed out all of the things that he is hooked up to and infusing and said "if we were not trying to help these things would not be going". He seemed to quiet down some after this...until anesthesia came in for an ART line. Will try to complete the conversation but it expected to come much the same way.....in circles.
[2019-01-16 11:05] LABS: ABG BASE EXCESS 0.2 MMOL/L (-2.5-2.5); ABG OXYGEN SATURATION 97 % (94-100); ABG PCO2 48 MMHG (35-45); ABG PO2 77 MMHG (79-93); ALLENS TEST YES-POS; INSPIRED O2 20L@35%; VENTILATOR NO
[2019-01-16 11:06] LABS: ABG PH 7.34 (7.37-7.43); PATIENT TEMP 97.3
--- NOTE | 2019-01-16 11:23 | Anesthesia-Procedure Note ---
Procedures/Interventions Procedure Start/Stop/Diagnosis Date of Procedure: Jan 16, 2019 Start Time: 10:05 Referring Physician: Mae Preprocedural Diagnosis: Respiratory Distress Brief History Called to ICU to start A-line. Pt sitting up in bed alert. Brief HX obtained from chart and RN. Verbal consent obtained. Chlorhexidine preop to Rt. wrist. First 2 attempt by SMOOTH unsuccessful. Third attempt by OFFLINE EDITOR passed easily. Strong waveform noted. A-line secured with op site and tape. Report to RN Stop Time: 10:15 Postprocedural Diagnosis: Respiratory Distress Arterial Line Arterial Line Catheter: 20G Type: Radial Location: Right Procedure: prepped, draped in sterile fashion, 1% lidocaine used to numb region , good wave-form was obtained, patient tolerated procedure well, no immediate complications, post procedure dressing applied DINORA REIS CRNA Jan 16, 2019 11:23
[2019-01-16] MEDS: DILTIAZEM 125 MG/NS 100 ML IV SCH ×2 (11:24)
[2019-01-16] MEDS ORDERED: LACTATED RINGERS 1,000 ML IV ONE ×2 (14:59→15:00)
[2019-01-16 16:16] LABS: ABG BASE EXCESS 0.6 MMOL/L (-2.5-2.5); ABG OXYGEN SATURATION 99 % (94-100); ABG PCO2 50 MMHG (35-45); ABG PO2 125 MMHG (79-93); ABG TCO2 27.4 MMOL/L (21.0-31.0)
[2019-01-16 16:17] LABS: ABG PH 7.33 (7.37-7.43); ALLENS TEST POSITIVE; INSPIRED O2 45% BIPAP; PATIENT TEMP 98.1; VENTILATOR NO
--- NOTE | 2019-01-16 17:39 | Cardiology Progress Note ---
Cardiology SOAP Progress Note Subjective: No chest pain however shortness of breath. Objective: I&O/Vital Signs 01/16/19 01/16/19 01/16/19 01/16/19 06:00 06:18 06:24 06:25 Pulse 90 93 Resp 9 10 B/P (MAP) 141/73 (95) 141/89 (106) Pulse Ox 98 97 96 96 O2 Delivery Vapotherm Vapotherm Vapotherm Vapotherm O2 Flow Rate 45.00 40.00 40.00 30.00 40.00 30.00 FiO2 45 40 01/16/19 01/16/19 01/16/19 01/16/19 07:00 07:01 08:00 08:00 Temp 97.4 Pulse 86 93 Resp 12 B/P (MAP) 121/91 (101) Pulse Ox 96 94 O2 Delivery Vapotherm Vapotherm O2 Flow Rate 40.00 30.00 30.00 FiO2 40 01/16/19 01/16/19 01/16/19 01/16/19 08:00 09:00 10:00 10:28 Pulse 86 96 104 Resp 8 26 15 B/P (MAP) 129/91 (104) 155/88 (110) 166/92 (116) Pulse Ox 95 92 97 96 O2 Delivery Vapotherm Vapotherm Vapotherm Vapotherm O2 Flow Rate 40.00 40.00 40.00 30.00 30.00 30.00 30.00 FiO2 40 01/16/19 01/16/19 01/16/19 01/16/19 10:28 10:30 10:38 11:00 Pulse 98 104 107 Resp 23 9 B/P (MAP) 112/63 (79) 144/90 (108) Pulse Ox 96 96 97 O2 Delivery Vapotherm Vapotherm Vapotherm O2 Flow Rate 40.00 35.00 35.00 30.00 20.00 20.00 01/16/19 01/16/19 01/16/19 01/16/19 12:00 12:00 12:13 12:22 Temp 97.6 Pulse 102 112 Resp 20 B/P (MAP) 130/82 (98) Pulse Ox 94 86 O2 Delivery Vapotherm Vapotherm O2 Flow Rate 20.00 35.00 20.00 FiO2 45 01/16/19 01/16/19 01/16/19 01/16/19 13:00 13:35 13:42 13:53 Pulse 89 99 Resp 35 16 15 B/P (MAP) 103/74 (84) Pulse Ox 94 98 100 O2 Delivery Vapotherm NIV Bilevel O2 Flow Rate 35.00 45.00 45.00 20.00 01/16/19 01/16/19 01/16/19 01/16/19 14:00 15:00 16:00 16:00 Pulse 91 86 67 B/P (MAP) 98/67 (77) 93/60 (71) 90/60 (70) Pulse Ox 100 100 96 100 O2 Delivery NIV Bilevel NIV Bilevel NIV Bilevel NIV Bilevel O2 Flow Rate 35.00 35.00 35.00 20.00 20.00 20.00 FiO2 45 01/16/19 01/16/19 16:15 17:00 Pulse 86 84 Resp 15 B/P (MAP) 90/64 (73) Pulse Ox 100 100 O2 Delivery NIV Bilevel O2 Flow Rate 45.00 35.00 20.00 01/16/19 00:00 Intake Total 5250 ml Output Total 950 ml Balance 4300 ml Weight (Pounds): 165 Weight (Ounces): 0.0 Weight (Calculated Kilograms): [id number] Constitutional: AAO x 3 Respiratory: No accessory muscle use; respiratory distress; No chest tender, No chest expansion is symmetric; chest is bilaterally symmetric; No lungs clear to percussion; lungs clear to auscultation, crackles; No rhonchi, No rales, No stridor, No wheezing, No pleural rub, No other Cardiovascular: regular rate-rhythm; No irregularly irregular, No extra beats, No parasternal heave is noted, No JVD, No edema, No bradycardia, No tachycardia , No point of maximal impulse, No cardiac thrills are palpable; S1 and S2; No gallop/S3, No gallop/S4, No diastolic murmur, No systolic murmur, No friction rub, No click, No other Gastrointestional: No tender, No soft, No round, No distended, No pulsatile mass, No organomegaly, No guarding, No rebound, No tenderness, No hernia, No mass, No audible bowel sounds, No abnormal bowel sounds, No abdominal bruits, No spleenomegaly, No other Extremities: No normal range of motion, No non-tender, No normal inspection, No pedal edema, No calf tenderness, No normal capillary refill, No pelvis stable , No calf tenderness, No inflammation, No pedal edema, No slow capillary refill , No swelling, No other, No abrasion, No clubbing, No cyanosis, No ecchymosis, No laceration, No no lower extremity edema bilateral, No significant edema, No tenderness, No wound Neurologic/Psychiatric: no motor/sensory deficits, alert, normal mood/affect, oriented x 3, power is 5/5 both on sides Skin: No normal color, No warm/dry, No cyanosis, No cool, No diaphoresis, No damp, No ecchymosis, No jaundice, No mottled, No pallor, No rash, No tattoos/ piercings, No ulcerations, No rash on exposed areas, No ulcerations on exposed areas, No other Results/Procedures: Labs Laboratory Tests 01/16/19 03:26: White Blood Count 21.9H, Red Blood Count 3.59L, Hemoglobin 10.4L, Hematocrit 33L , Mean Corpuscular Volume 91, Mean Corpuscular Hemoglobin 29, Mean Corpuscular Hemoglobin Concent 32, Red Cell Distribution Width 14.6H, Platelet Count 236, Mean Platelet Volume 9.2, Neutrophils (%) (Auto) 96H, Lymphocytes (%) (Auto) 2L , Monocytes (%) (Auto) 3, Eosinophils (%) (Auto) 0, Basophils (%) (Auto) 0, Neutrophils # (Auto) 21.0H, Lymphocytes # (Auto) 0.4L, Monocytes # (Auto) 0.6, Eosinophils # (Auto) 0.0, Basophils # (Auto) 0.0, Sodium Level 141, Potassium Level 4.7, Chloride Level 104, Carbon Dioxide Level 28, Anion Gap 9, Blood Urea Nitrogen 43H, Creatinine 1.74H, Estimat Glomerular Filtration Rate 39, BUN/ Creatinine Ratio 25, Glucose Level 151H, Calcium Level 8.4L, Phosphorus Level 5.3H, Magnesium Level 2.5H 01/16/19 06:16: Blood Gas Puncture Site RIGHT RADAIL, Blood Gas Patient Temperature 97.2, Arterial Blood pH 7.33*L, Arterial Blood Partial Pressure CO2 54H, Arterial Blood Partial Pressure O2 95H, Arterial Blood HCO3 28H, Arterial Blood Total CO2 30.0, Arterial Blood Oxygen Saturation 98, Arterial Blood Base Excess 2.8H, Siva Test YES-POS, Blood Gas Ventilator Setting NO, Blood Gas Inspired Oxygen 45% 01/16/19 10:58: Blood Gas Puncture Site RR, Blood Gas Patient Temperature 97.3, Arterial Blood pH 7.34*L, Arterial Blood Partial Pressure CO2 48H, Arterial Blood Partial Pressure O2 77L, Arterial Blood HCO3 26, Arterial Blood Total CO2 27.0, Arterial Blood Oxygen Saturation 97, Arterial Blood Base Excess 0.2, Siva Test YES-POS, Blood Gas Ventilator Setting NO, Blood Gas Inspired Oxygen 20L@35% 01/16/19 16:10: Blood Gas Puncture Site RIGHT RADIAL, Blood Gas Patient Temperature 98.1, Arterial Blood pH 7.33*L, Arterial Blood Partial Pressure CO2 50H, Arterial Blood Partial Pressure O2 125H, Arterial Blood HCO3 26, Arterial Blood Total CO2 27.4, Arterial Blood Oxygen Saturation 99, Arterial Blood Base Excess 0.6, Siva Test POSITIVE, Blood Gas Ventilator Setting NO, Blood Gas Inspired Oxygen 45% BIPAP Microbiology 01/13/19 Blood Culture - Preliminary, Resulted No growth 01/13/19 MRSA Screen - Final, Complete MRSA not isolated A/P: Assessment/Dx: Non-STEMI, Acute systolic congestive heart failure, Severe respiratory failure, hypercarbic Severe COPD, Possible pneumonia, COPD exacerbation, Acute kidney injury, Plan: He wants to be full code and wants everything to be done. He consents to coronary angiography, however he needs to improve from his respiratory status before coronary angiography can be performed. Also we would need anesthesia/ Dr. Wall's assistance since coronary angiography will not be able to be performed in moderate conscious sedation. Non-STEMI, continue aspirin, Brilinta and Lovenox. Lipitor. Improving troponin. We will defer coronary angiography to the patient is more stable pulmonary vitale. Discussed with Dr. Wall. Patient will likely require intubation. We will plan on coronary angiography on . Atrial fibrillation with rapid ventricular response, given Cardizem and Lopressor. On full dose Lovenox. Better rate control. We will try to convert to by mouth Cardizem. I'm avoiding Lopressor because of severe COPD. Acute systolic congestive heart failure, IV Lasix is recommended. Elevated BNP. Echocardiogram done 01/13/2019 shows an EF of 30-35 percent. Dilated LV with mild pulmonary hypertension. Severe respiratory failure, hypercarbic, likely multifactorial due to acute systolic congestive heart failure, severe COPD, influenza. Defer to Dr. Wall. Severe COPD, Possible pneumonia, COPD exacerbation, Acute kidney injury, improving gradually. Likely underlying chronic kidney disease. Thank you for your consultation. Please call me if you have any questions. Cynthia Wang MD, FACP, FACC, FSCAI, FHRS, CCDS Interventional Cardiology Cardiac Electrophysiology Vascular Medicine and Endovascular Interventions Viji WANG MD Jan 16, 2019 5:39 pm
--- NOTE | 2019-01-16 18:01 | NUR ---
Dr. Wall updated on pt status - SBP in 80s after LR bolus, et decreased urine output of 100 since 1400. No new orders at this time et notified by Dr. Wall that we will "continue to monitor" at this time.
--- NOTE | 2019-01-16 20:47 | NUR ---
This RN called EICU to notify of low blood pressures, patient agitation and use of precedex and dilaudid to help keep patient relaxed to wear his oxygen as he keeps pulling it off and sitting in tripod position to breathe. Also informed that patient is on brilinta and lovenox and oozing from PICC line and Art line, request coagulation labs. Will await further orders and continue to monitor.
[2019-01-16] MEDS ORDERED: ALBUMIN 25% 25 GM/100 ML 200 ML IV ONE (21:18)
[2019-01-16] MEDS: ATORVASTATIN 40 MG (LIPITOR) TABLET PO SCH (21:41)
[2019-01-16] MEDS ORDERED: ALBUMIN 25% 25 GM/100 ML 100 ML IV ONE ×2 (21:45)
[2019-01-16 21:58] LABS: INR 1.2 (0.8-1.4); PROTHROMBIN TIME PATIENT 15.2 SEC (12.2-14.7)
[2019-01-16 22:01] LABS: CALCIUM 6.7 MG/DL (8.5-10.1); CREATININE SERUM 1.26 MG/DL (0.60-1.30); POTASSIUM 4.1 MMOL/L (3.6-5.0)
[2019-01-16] MEDS ORDERED: FUROSEMIDE 40 MG/4 ML INJ (LASIX) IV ONE (22:30)
--- NOTE | 2019-01-16 22:49 | NUR ---
Patient's art line was pulled out accidentally by patient. This RN put pressure on site for 10 minutes, then placed pressure dressing when bleeding stopped.
[2019-01-16] MEDS ORDERED: NS (IVPB) 250 ML ONE (23:13)
[2019-01-17] VITALS (33 sets, daily range): BP systolic 59–157; BP diastolic 31–104
[2019-01-17 01:04] LABS: ABG BASE EXCESS -0.6 MMOL/L (-2.5-2.5); ABG OXYGEN SATURATION 97 % (94-100); ABG PCO2 50 MMHG (35-45); ABG PO2 85 MMHG (79-93); ABG TCO2 26.5 MMOL/L (21.0-31.0)
[2019-01-17 01:06] LABS: ABG PH 7.32 (7.37-7.43); ALLENS TEST YES-POS
[2019-01-17 01:07] LABS: INSPIRED O2 45%; PATIENT TEMP 97.1; VENTILATOR NO
[2019-01-17] MEDS ORDERED: FUROSEMIDE 40 MG/4 ML INJ (LASIX) ONE (01:56)
[2019-01-17] MEDS: RT-ALBUTEROL/IPRATROPIUM 3 ML (DUONEB) VIAL INH SCH ×6 (02:18→22:00)
[2019-01-17 03:20] LABS: BASOPHILS % (AUTO) 0 % (0-10); EOSINOPHILS % (AUTO) 0 % (0-10); HEMATOCRIT 29 % (40-54); HEMOGLOBIN 9.3 G/DL (13.3-17.7); LYMPHOCYTES # (AUTO) 0.3 X 10^3 (1.0-4.0); LYMPHOCYTES % (AUTO) 1 % (12-44); MEAN CORPUSCULAR HEMOGLOBIN 29 PG (25-34); MEAN CORPUSCULAR HGB CONC 32 G/DL (32-36); MEAN CORPUSCULAR VOLUME 90 FL (80-99); MEAN PLATELET VOLUME 9.6 FL (7.4-10.4); MONOCYTES # (AUTO) 0.6 X 10^3 (0.0-1.0); MONOCYTES % (AUTO) 3 % (0-12); NEUTROPHILS # (AUTO) 20.1 X 10^3 (1.8-7.8); NEUTROPHILS % (AUTO) 96 % (42-75); PLATELET COUNT 212 10^3/uL (130-400); RED CELL DISTRIBUTION WIDTH 14.4 % (10.0-14.5); WHITE BLOOD COUNT 20.9 10^3/uL (4.3-11.0)
[2019-01-17 03:35] LABS: CALCIUM 8.5 MG/DL (8.5-10.1); CREATININE SERUM 1.73 MG/DL (0.60-1.30); MAGNESIUM 2.3 MG/DL (1.8-2.4); POTASSIUM 4.2 MMOL/L (3.6-5.0)
[2019-01-17] MEDS: DEXMEDETOMIDINE INJECTION 1,000 MCG in NS (IVPB) 250 ML IV SCH ×2 (04:14→17:07)
[2019-01-17] MEDS: MAGNESIUM 1 GM/100 ML IVPB 100 ML IV SCH (04:57)
[2019-01-17] MEDS: methylPREDNISolone 40 MG/ML (Solu-MEDROL) VIAL IV SCH ×3 (04:57→17:20)
[2019-01-17] MEDS: POTASSIUM CL 10MEQ/50ML IVPB 50 ML IV SCH (04:57)
[2019-01-17] MEDS: KCL 20 MEQ TAB (K-DUR) PO SCH (04:58)
--- NOTE | 2019-01-17 05:25 | Pulmonary Progress Note ---
Subjective Time Seen by a Provider: 06:53 Subjective/Events-last exam Pt complains of SOB. Sepsis Event Evaluation Height, Weight, BMI Height: 5'10.00" Weight: 165lbs. 0.0oz. 74.759265nn; 23.0 BMI Method:Stated Focused Exam Lactate Level 01/16/19 21:32: Lactic Acid Level 0.68 Exam Exam Vital Signs Date Time Temp Pulse Resp B/P (MAP) Pulse Ox O2 Delivery O2 Flow Rate FiO2 01/17/19 05:00 81 10 148/86 (106) 99 Vapotherm 45.00 25.00 01/17/19 04:19 Vapotherm 25.00 45 01/17/19 04:00 97.2 01/17/19 04:00 82 11 132/90 (104) 100 Vapotherm 45.00 25.00 01/17/19 03:00 75 13 137/92 (107) 99 Vapotherm 45.00 25.00 01/17/19 02:19 98 Vapotherm 25.00 45 01/17/19 02:00 80 8 120/88 (99) 99 Vapotherm 45.00 25.00 01/17/19 01:56 97.1 82 17 136/86 100 Vapotherm 45 01/17/19 01:00 77 01/17/19 01:00 77 11 116/82 (93) 100 Vapotherm 45.00 25.00 01/17/19 00:03 80 21 117/75 (89) 95 Vapotherm 45.00 25.00 01/17/19 00:00 97.1 01/17/19 00:00 Vapotherm 25.00 45 01/16/19 23:45 97.0 84 8 112/73 99 01/16/19 23:30 97.3 84 11 113/81 99 Vapotherm 25.00 15 01/16/19 23:02 Vapotherm 25.00 45 01/16/19 23:00 84 9 117/75 (89) 96 NIV Bilevel 40.00 01/16/19 22:15 79 14 112/75 (87) 97 NIV Bilevel 40.00 01/16/19 22:10 91 14 100 45.00 01/16/19 22:00 76 10 94/72 (79) 98 NIV Bilevel 45.00 01/16/19 21:15 86 16 97/72 (80) 98 NIV Bilevel 45.00 01/16/19 21:05 85 12 82/54 (63) 96 Vapotherm 45.00 20.00 01/16/19 21:00 85 9 86/68 (74) 100 NIV Bilevel 45.00 01/16/19 20:10 92 16 97/65 (76) 95 NIV Bilevel 45.00 01/16/19 20:00 97.7 01/16/19 20:00 101 19 86/60 (69) 96 NIV Bilevel 45.00 01/16/19 20:00 Vapotherm 35 01/16/19 19:51 85 23 92 45.00 01/16/19 19:30 100 85/58 (67) 98 NIV Bilevel 45.00 01/16/19 19:10 Vapotherm 20.00 45 01/16/19 19:05 98 Vapotherm 20.00 45 01/16/19 19:00 100 85/58 (67) 98 Vapotherm 45.00 20.00 01/16/19 19:00 100 01/16/19 18:00 85 85/55 (65) 96 NIV Bilevel 35.00 20.00 01/16/19 17:00 84 90/64 (73) 100 NIV Bilevel 35.00 20.00 01/16/19 16:15 86 15 100 45.00 01/16/19 16:00 67 90/60 (70) 100 NIV Bilevel 35.00 20.00 01/16/19 16:00 96 NIV Bilevel 45 01/16/19 15:00 86 93/60 (71) 100 NIV Bilevel 35.00 20.00 01/16/19 14:00 91 98/67 (77) 100 NIV Bilevel 35.00 20.00 01/16/19 13:53 99 15 100 45.00 01/16/19 13:42 NIV Bilevel 01/16/19 13:35 89 16 98 45.00 01/16/19 13:00 35 103/74 (84) 94 Vapotherm 35.00 20.00 01/16/19 12:22 112 01/16/19 12:13 97.6 01/16/19 12:00 102 20 130/82 (98) 86 Vapotherm 35.00 20.00 01/16/19 12:00 94 Vapotherm 20.00 45 01/16/19 11:00 107 9 144/90 (108) 97 Vapotherm 35.00 20.00 01/16/19 10:38 Vapotherm 35.00 20.00 01/16/19 10:30 104 23 112/63 (79) 96 Vapotherm 40.00 30.00 01/16/19 10:28 98 96 01/16/19 10:28 96 Vapotherm 30.00 40 01/16/19 10:00 104 15 166/92 (116) 97 Vapotherm 40.00 30.00 01/16/19 09:00 96 26 155/88 (110) 92 Vapotherm 40.00 30.00 01/16/19 08:00 86 8 129/91 (104) 95 Vapotherm 40.00 30.00 01/16/19 08:00 94 Vapotherm 30.00 40 01/16/19 08:00 97.4 01/16/19 07:01 93 01/16/19 07:00 86 12 121/91 (101) 96 Vapotherm 40.00 30.00 01/16/19 06:25 96 Vapotherm 30.00 40 01/16/19 06:24 93 10 141/89 (106) 96 Vapotherm 40.00 30.00 01/16/19 06:18 97 Vapotherm 40.00 45 01/16/19 06:00 90 9 141/73 (95) 98 Vapotherm 45.00 40.00 I & O 01/17/19 07:00 Intake Total 3785 ml Output Total 950 ml Balance 2835 ml Height & Weight Height: 5'10.00" Weight: 165lbs. 0.0oz. 74.554369sz; 23.0 BMI Method:Stated General Appearance: Anxious, Chronically ill, Severe Distress HEENT: PERRL/EOMI, Pharynx Normal, Moist Mucous Membranes Neck: Full Range of Motion, Normal Inspection Respiratory: Chest Non Tender, No Accessory Muscle Use, No Respiratory Distress , Decreased Breath Sounds, Wheezing (faint) Cardiovascular: Regular Rate, Rhythm, No Edema, No Murmur, Normal Peripheral Pulses Capillary Refill: Less Than 3 Seconds Peripheral Pulses: 2+ Dorsalis Pedis (R), 2+ Left Dors-Pedis (L) Gastrointestinal: normal bowel sounds, non tender, soft Extremity: Normal Capillary Refill, Normal Inspection, No Pedal Edema Neurologic/Psychiatric: Alert, Oriented x3 Skin: Ecchymosis (left forearm) Lymphatic: No Adenopathy Results Lab Laboratory Tests 01/15/19 10:10 01/16/19 03:26 01/16/19 21:32 01/17/19 03:10 Assessment/Plan Assessment/Plan Acute respiratory failure- with worsening SOB -Discussed intubation with patient he wants to hold off for now however he does want intubation if absolutely needed. -SVNs Q4 -solumedrol 40 Q6 AFIB RVR - Cardizem -Cardiology following Acute on chronic renal failure - IVF curently NS at 100cc/hr -Monitor Anemia -Monitor Influenza B -Tamiflu -Isolation LUE pain edema - Doubt compartment syndrome however pt complains of severe pain -Dr. Arias following [facility] -Monitor Hx of severe oxygen dependent COPD -SVNS, oxygen Metabolic encephalopathy - -Monitor -respiradol -Morphine, and D/C precedex Leukocytosis- Probably secondary to out pt steroids - No fever -Continue Cefepime, and azithromycin add vanco -Await pain cultures and MRSA swab NSTEMI -BNP is high however he has renal failure -Cardiology consulted -Possible cath tomorrow -Theraputic lovenox -Echo pending COPDAE/asthmaAE - pt does use 3liters at home. currently using 35% via BiPAP -Solumedrol then 40 Q6 -SVNS Q4, add pulmicort BID Chronic renal failure -Monitor Update: Called into room secondary to acute worsening of agitation and respiratory distress. Pt is hypoxic in the 70's and attempting to get out of bed. Pt is a full code. I emergently intubated patient after giving Versed and Fentanyl. Time spent with patient not including intubation is 60min. Critical Care: Critically Ill Patient Time spent with patient (mins): 60 ALEXANDER CHIU DO Jan 17, 2019 05:24
[2019-01-17] MEDS ORDERED: morphine INJ 4 MG/ML 1 ML (VIAL/SYRINGE) IVP PRN (05:30)
[2019-01-17] MEDS: HALOPERIDOL 5 MG/ML (HALDOL) AMP IV PRN (05:41)
[2019-01-17] MEDS ORDERED: LORazepam INJ 2 MG/ML (ATIVAN) VIAL IV PRN (05:45)
[2019-01-17] MEDS: RT-BUDESONIDE NEBS 0.5 MG/2ML (PULMICORT) AMP INH SCH ×3 (06:31→18:50)
[2019-01-17] MEDS ORDERED: PROPOFOL DRIP (ICU) 100 ML IV ONE (06:36)
[2019-01-17] MEDS: PROPOFOL DRIP (ICU) 100 ML IV SCH ×3 (06:50→20:38)
--- NOTE | 2019-01-17 07:00 | NUR ---
This RN mischarted. Patient had no signs of injury related to restraints/seclusion.
[2019-01-17] MEDS ORDERED: NOREPINEPHRINE 4 MG/4 ML (LEVOPHED) AMP IV ONE (07:05)
[2019-01-17] MEDS ORDERED: NS (IVPB) 250 ML ONE (07:05)
--- NOTE | 2019-01-17 07:15 | NUR ---
Timeline note: 0630 - patient actively trying to remove oxygen and get out of bed. Yelling at this nurse and Caitlyn RT that we are trying to kill him and stating he can't breathe while he is attempting to remove the bipap himself. RT puts vapotherm back on patient. Dr. Wall comes to room and discussed intubation with patient who stated anything to help him breathe 0640 - 4mg of versed given to patient IV 0641 50mcg of fentanyl given to the patient IV 0642 - 50 mg of diprivan given to the patient IV 0643 - patient intubated per Dr. Wall 0651 - OG placed and verified with stethoscope 0715 - blood pressure low, Dr. Wall notified and order for levophed given as well as second fluid bolus of NS if needed.
--- NOTE | 2019-01-17 07:22 | Pulmonary Procedures ---
Pulmonary Procedures Date of Procedure Date of Service: Jan 17, 2019 Reason for Intubation: respriatory distress Time of Intubation: 07:00 Intubation Method: orotracheal Tube Size: 8 Medications: Fentanyl, Versed Positive End Tide CO2: Yes Breath Sounds after Intubation: bilateral-equal Intubation Complications: no complications Post Intubation Xray: Yes (pending) ALEXANDER CHIU DO Jan 17, 2019 07:22
[2019-01-17] MEDS: NS IV 1000 ML 1,000 ML IV SCH ×2 (07:53→17:20)
[2019-01-17] MEDS ORDERED: NOREPINEPHRINE 4 MG in NS (IVPB) 250 ML IV SCH (08:00)
[2019-01-17] MEDS: NOREPINEPHRINE 4 MG in NS (IVPB) 250 ML IV SCH (08:16)
--- NOTE | 2019-01-17 08:32 | Diagnostic Imaging Report ---
INDICATION: Respiratory failure. EXAMINATION: Portable chest at 7:19 AM. FINDINGS: The right upper extremity PICC line tip projects over the SVC. The heart size and pulmonary vascularity are normal. The lungs are clear. There are no effusions or pneumothoraces. The ET tube projects over the trachea. An NG tube enters the stomach. IMPRESSION: No acute abnormalities in the chest. Dictated by: Dictated on workstation # [id number]
--- NOTE | 2019-01-17 08:36 | Diagnostic Imaging Report ---
INDICATION: Shortness of breath Portable chest 2:51 AM Right upper extremity PICC line tip projects over the SVC. Heart size and pulmonary vascularity are normal. Lungs are clear. There are no effusions or pneumothoraces. There are emphysematous changes in the lungs. IMPRESSION: COPD. No acute abnormalities. Dictated by: Dictated on workstation # [id number]
[2019-01-17 08:44] LABS: ABG BASE EXCESS -0.3 MMOL/L (-2.5-2.5); ABG OXYGEN SATURATION 100 % (94-100); ABG PCO2 53 MMHG (35-45); ABG PO2 252 MMHG (79-93); ABG TCO2 27.2 MMOL/L (21.0-31.0)
[2019-01-17 08:48] LABS: ALLENS TEST YES-POS; INSPIRED O2 80%; PATIENT TEMP 97.6; VENTILATOR YES
[2019-01-17] MEDS ORDERED: PANTOPRAZOLE 40 MG (PROTONIX) TAB PO SCH (09:00)
[2019-01-17] MEDS: PANTOPRAZOLE 40 MG (PROTONIX) VIAL IV SCH (09:48)
[2019-01-17] MEDS: TICAGRELOR 90 MG TABLET (BRILINTA) PO SCH ×2 (09:48→21:22)
[2019-01-17] MEDS: CEFEPIME INJECTION 2,000 MG in WATER (STERILE) FOR INJECTION 20 ML IV SCH (09:48)
[2019-01-17] MEDS: OSELTAMIVIR 30 MG (TAMIFLU) CAPSULE PO SCH ×2 (09:49→21:22)
[2019-01-17] MEDS: ASPIRIN E.C. 81 MG (ECOTRIN) TAB PO SCH (09:49)
[2019-01-17] MEDS: risperiDONE 0.25 MG (RisperDAL) TAB PO SCH ×2 (09:49→21:22)
--- NOTE | 2019-01-17 09:49 | NUR ---
PALLIATIVE CARE RN reviewing chart and notes that patient was intubated this morning.
[2019-01-17] MEDS: amLODIPine 10 MG (NORVASC) TAB PO SCH (09:55)
[2019-01-17] MEDS: DILTIAZEM 120 MG (CARDIZEM CD) CAP PO SCH (09:55)
[2019-01-17] MEDS: lisINopril 5 MG (PRINIVIL) TABLET PO SCH (09:56)
[2019-01-17] MEDS: meTOprolol SUCCINATE 100 MG (TOPROL XL) TAB PO SCH (09:56)
[2019-01-17] MEDS: ENOXAPARIN 80 MG/0.8 ML (LOVENOX) SYR SC SCH (09:56)
[2019-01-17] MEDS: DILTIAZEM 125 MG/NS 100 ML IV SCH ×2 (09:56)
[2019-01-17] MEDS ORDERED: MIDAZOLAM 5 MG/5 ML (VERSED) VIAL IJ ONE (10:26)
[2019-01-17] MEDS ORDERED: fentaNYL INJECTION 100 MCG/2 ML AMP INJ ONE (10:26)
--- NOTE | 2019-01-17 10:47 | Progress Note-Hospitalist ---
Subjective HPI/CC On Admission Date Seen by Provider: Jan 17, 2019 Time Seen by Provider: 10:30 Subjective/Events-last exam Pt was intubated this morning Central line may be needed in the subclavian area because both of his arms are just significantly edematous and now bruising a lot PIC line in place in the right arm Reviewed meds and labs Prognosis extremely poor Focused Exam Lactate Level 01/16/19 21:32: Lactic Acid Level 0.68 Objective Exam Vital Signs Vital Signs Date Time Temp Pulse Resp B/P (MAP) Pulse Ox O2 Delivery O2 Flow Rate FiO2 01/17/19 16:02 97 22 94 40 01/17/19 16:00 Mechanical Ventilator 01/17/19 15:00 92/75 (81) 40.00 01/17/19 07:58 98.1 Capillary Refill : Less Than 3 Seconds General Appearance: No Apparent Distress, Chronically ill, Other (intubated, sedated) HEENT: Other (ETT in place) Respiratory: Chest Non Tender, No Accessory Muscle Use, No Respiratory Distress , Decreased Breath Sounds, Wheezing (faint) Cardiovascular: Regular Rate, Rhythm, No Edema, No Murmur, Normal Peripheral Pulses Gastrointestinal: Normal Bowel Sounds, No Organomegaly, Soft Extremity: Normal Capillary Refill, Normal Inspection, Swelling (both arms) Skin: Ecchymosis (left forearm) Lymphatic: No Adenopathy Results/Procedures Lab Laboratory Tests 01/16/19 21:32 01/17/19 03:10 Patient resulted labs reviewed. Assessment/Plan Assessment and Plan Assess & Plan/Chief Complaint [facility] Critically ill status Confusion due to metabolic encephalopathy Plan: ICU USG left arm negative Very complex case Intubation Critical Care Critically Ill Patient Diagnosis/Problems Diagnosis/Problems (1) Ventilator dependence Status: Acute (2) Atrial fibrillation with rapid ventricular response Status: Acute (3) COPD exacerbation Status: Acute (4) Chronic kidney disease Status: Chronic Qualifiers: Chronic kidney disease stage: stage 3 (moderate) Qualified Codes: N18.3 - Chronic kidney disease, stage 3 (moderate) (5) Influenza B Status: Acute (6) Chronic pain Status: Chronic Qualifiers: Chronic pain type: chronic pain syndrome Qualified Codes: G89.4 - Chronic pain syndrome (7) Acute and chronic respiratory failure Status: Acute (8) Hypertension Status: Chronic Qualifiers: Hypertension type: essential hypertension Qualified Codes: I10 - Essential (primary) hypertension (9) Anxiety Status: Chronic (10) NSTEMI (non-ST elevated myocardial infarction) Status: Acute (11) Pneumonia Status: Acute Qualifiers: Pneumonia type: due to unspecified organism Laterality: unspecified laterality Lung location: unspecified part of lung Qualified Codes: J18.9 - Pneumonia, unspecified organism (12) COPD (chronic obstructive pulmonary disease) Status: Acute Qualifiers: COPD type: COPD with acute lower respiratory infection Qualified Codes: J44.0 - Chronic obstructive pulmonary disease with acute lower respiratory infection (13) DVT prophylaxis Status: Acute (14) Pain and swelling of left upper extremity Status: Acute (15) Confusion Status: Acute (16) Respiratory failure Status: Acute Qualifiers: Chronicity: acute on chronic Respiratory failure complication: unspecified whether with hypoxia or hypercapnia Qualified Codes: J96.20 - Acute and chronic respiratory failure, unspecified whether with hypoxia or hypercapnia Clinical Quality Measures DVT/VTE Risk/Contraindication: Risk Factor Score Per Nursin RFS Level Per Nursing on Admit: 4+=Very High YANET JAIMES DO Jan 17, 2019 10:47
[2019-01-17 10:55] LABS: ABG BASE EXCESS -0.9 MMOL/L (-2.5-2.5); ABG OXYGEN SATURATION 92 % (94-100); ABG PCO2 41 MMHG (35-45); ABG PH 7.37 (7.37-7.43); ABG PO2 68 MMHG (79-93); ABG TCO2 25.1 MMOL/L (21.0-31.0)
[2019-01-17 10:56] LABS: ALLENS TEST YES-POS; INSPIRED O2 30%; PATIENT TEMP 96.9; VENTILATOR YES
--- NOTE | 2019-01-17 12:48 | Anesthesia-Procedure Note ---
Procedures/Interventions Procedure Start/Stop/Diagnosis Date of Procedure: Jan 17, 2019 Start Time: 11:40 Stop Time: 12:00 Arterial Line Arterial Line Catheter: 22G Type: Radial Location: Right Procedure: prepped, draped in sterile fashion, 1% lidocaine used to numb region , patient tolerated procedure well, post procedure area cleaned, post procedure dressing applied (unsuccessful x 2 attempts. aborted due to trauma potential to right arm. dr gupta notified of femoral line need. ) GRISELDA DON CRNA Jan 17, 2019 12:48
--- NOTE | 2019-01-17 13:20 | Cardiology Progress Note ---
Cardiology SOAP Progress Note Subjective: Severe respiratory distress this morning, intubated ventilated. Objective: I&O/Vital Signs 01/17/19 01/17/19 01/17/19 01/17/19 01:56 02:00 02:19 03:00 Temp 97.1 Pulse 82 80 75 Resp 17 8 13 B/P (MAP) 136/86 120/88 (99) 137/92 (107) Pulse Ox 100 99 98 99 O2 Delivery Vapotherm Vapotherm Vapotherm Vapotherm O2 Flow Rate 45.00 25.00 45.00 25.00 25.00 FiO2 45 45 01/17/19 01/17/19 01/17/19 01/17/19 04:00 04:00 04:19 05:00 Temp 97.2 Pulse 82 81 Resp 11 10 B/P (MAP) 132/90 (104) 148/86 (106) Pulse Ox 100 99 O2 Delivery Vapotherm Vapotherm Vapotherm O2 Flow Rate 45.00 25.00 45.00 25.00 25.00 FiO2 45 01/17/19 01/17/19 01/17/19 01/17/19 06:00 06:30 06:43 06:50 Pulse 86 87 85 Resp 11 23 B/P (MAP) 140/86 (104) Pulse Ox 88 97 100 O2 Delivery Vapotherm Vapotherm O2 Flow Rate 52.00 25.00 25.00 FiO2 52 100 01/17/19 01/17/19 01/17/19 01/17/19 07:00 07:16 07:24 07:58 Temp 98.1 Pulse 81 84 Resp 13 B/P (MAP) 59/48 (52) Pulse Ox 100 O2 Delivery Mechanical Ventilator Mechanical Ventilator O2 Flow Rate 100.00 80.00 01/17/19 01/17/19 01/17/19 01/17/19 08:00 08:00 08:42 08:45 Pulse 77 92 Resp 21 22 B/P (MAP) 117/72 (87) Pulse Ox 100 100 O2 Delivery Mechanical Ventilator Mechanical Ventilator Mechanical Ventilator O2 Flow Rate 80.00 60.00 FiO2 80 80 01/17/19 01/17/19 01/17/19 01/17/19 09:00 09:36 10:00 10:13 Pulse 97 87 92 Resp 14 22 22 B/P (MAP) 122/31 (61) 149/104 (119) Pulse Ox 100 99 97 O2 Delivery Mechanical Ventilator Mechanical Ventilator Mechanical Ventilator O2 Flow Rate 60.00 40.00 40.00 FiO2 40 01/17/19 01/17/19 01/17/19 01/17/19 10:17 11:00 11:31 12:00 Pulse 102 95 109 Resp 22 22 21 B/P (MAP) 113/75 (88) 111/90 (97) Pulse Ox 91 94 91 O2 Delivery Mechanical Ventilator Mechanical Ventilator Mechanical Ventilator O2 Flow Rate 30.00 40.00 40.00 FiO2 30 01/17/19 12:00 O2 Delivery Mechanical Ventilator FiO2 35 01/16/19 23:59 Intake Total 1550 ml Output Total 400 ml Balance 1150 ml Weight (Pounds): 170 Weight (Ounces): 0.0 Weight (Calculated Kilograms): 77.422279 Constitutional: other (intubated/ventilated.) Respiratory: No accessory muscle use, No chest tender, No chest expansion is symmetric; chest is bilaterally symmetric; No lungs clear to percussion; lungs clear to auscultation, crackles; No rhonchi, No rales, No stridor, No wheezing, No pleural rub, No other Cardiovascular: irregularly irregular; No extra beats, No parasternal heave is noted, No JVD, No edema, No bradycardia; tachycardia; No point of maximal impulse, No cardiac thrills are palpable; S1 and S2; No gallop/S3, No gallop/S4 , No diastolic murmur, No systolic murmur, No friction rub, No click, No other Gastrointestional: No tender, No soft, No round, No distended, No pulsatile mass, No organomegaly, No guarding, No rebound, No tenderness, No hernia, No mass, No audible bowel sounds, No abnormal bowel sounds, No abdominal bruits, No spleenomegaly, No other Extremities: No normal range of motion, No non-tender, No normal inspection, No pedal edema, No calf tenderness, No normal capillary refill, No pelvis stable , No calf tenderness, No inflammation, No pedal edema, No slow capillary refill , No swelling, No other, No abrasion, No clubbing, No cyanosis, No ecchymosis, No laceration, No no lower extremity edema bilateral, No significant edema, No tenderness, No wound Neurologic/Psychiatric: other (intubated/ventilated.) Skin: No normal color, No warm/dry, No cyanosis, No cool, No diaphoresis, No damp, No ecchymosis, No jaundice, No mottled, No pallor, No rash, No tattoos/ piercings, No ulcerations, No rash on exposed areas, No ulcerations on exposed areas, No other Results/Procedures: Labs Laboratory Tests 01/16/19 16:10: Blood Gas Puncture Site RIGHT RADIAL, Blood Gas Patient Temperature 98.1, Arterial Blood pH 7.33*L, Arterial Blood Partial Pressure CO2 50H, Arterial Blood Partial Pressure O2 125H, Arterial Blood HCO3 26, Arterial Blood Total CO2 27.4, Arterial Blood Oxygen Saturation 99, Arterial Blood Base Excess 0.6, Siva Test POSITIVE, Blood Gas Ventilator Setting NO, Blood Gas Inspired Oxygen 45% BIPAP 01/16/19 21:32: Hemoglobin 8.0#L, Prothrombin Time 15.2H, INR Comment 1.2, Activated Partial Thromboplast Time 43H, Sodium Level 140, Potassium Level 4.1, Chloride Level 113H, Carbon Dioxide Level 19L, Anion Gap 8, Blood Urea Nitrogen 42H, Creatinine 1.26, Estimat Glomerular Filtration Rate 57, BUN/Creatinine Ratio 33 , Glucose Level 125H, Lactic Acid Level 0.68, Calcium Level 6.7L 01/17/19 00:54: Blood Gas Puncture Site RT RADIAL, Blood Gas Patient Temperature 97.1, Arterial Blood pH 7.32*L, Arterial Blood Partial Pressure CO2 50H, Arterial Blood Partial Pressure O2 85, Arterial Blood HCO3 25, Arterial Blood Total CO2 26.5, Arterial Blood Oxygen Saturation 97, Arterial Blood Base Excess -0.6, Siva Test YES-POS, Blood Gas Ventilator Setting NO, Blood Gas Inspired Oxygen 45% 01/17/19 03:10: Hemoglobin 9.3L, Sodium Level 139, Potassium Level 4.2, Chloride Level 104, Carbon Dioxide Level 24, Anion Gap 11, Blood Urea Nitrogen 50H, Creatinine 1.73H , Estimat Glomerular Filtration Rate 40, BUN/Creatinine Ratio 29, Glucose Level 161H, Calcium Level 8.5, White Blood Count 20.9H, Red Blood Count 3.21L, Hematocrit 29L, Mean Corpuscular Volume 90, Mean Corpuscular Hemoglobin 29, Mean Corpuscular Hemoglobin Concent 32, Red Cell Distribution Width 14.4, Platelet Count 212, Mean Platelet Volume 9.6, Neutrophils (%) (Auto) 96H, Lymphocytes (%) (Auto) 1L, Monocytes (%) (Auto) 3, Eosinophils (%) (Auto) 0, Basophils (%) (Auto) 0, Neutrophils # (Auto) 20.1H, Lymphocytes # (Auto) 0.3L, Monocytes # (Auto) 0.6, Eosinophils # (Auto) 0.0, Basophils # (Auto) 0.0, Phosphorus Level 5.0H, Magnesium Level 2.3, Triglycerides Level 177H 01/17/19 08:38: Blood Gas Puncture Site R RADIAL, Blood Gas Patient Temperature 97.6, Arterial Blood pH 7.30*L, Arterial Blood Partial Pressure CO2 53H, Arterial Blood Partial Pressure O2 252H, Arterial Blood HCO3 26, Arterial Blood Total CO2 27.2 , Arterial Blood Oxygen Saturation 100, Arterial Blood Base Excess -0.3, Siva Test YES-POS, Blood Gas Ventilator Setting YES, Blood Gas Inspired Oxygen 80% 01/17/19 10:43: Blood Gas Puncture Site RT RADIAL, Blood Gas Patient Temperature 96.9, Arterial Blood pH 7.37, Arterial Blood Partial Pressure CO2 41, Arterial Blood Partial Pressure O2 68L, Arterial Blood HCO3 24, Arterial Blood Total CO2 25.1, Arterial Blood Oxygen Saturation 92L, Arterial Blood Base Excess -0.9, Siva Test YES-POS, Blood Gas Ventilator Setting YES, Blood Gas Inspired Oxygen 30% 01/17/19 11:33: Glucometer 190H Microbiology 01/13/19 Blood Culture - Preliminary, Resulted No growth 01/13/19 MRSA Screen - Final, Complete MRSA not isolated A/P: Assessment/Dx: Non-STEMI, Acute systolic congestive heart failure, Severe respiratory failure, hypercarbic Severe COPD, Possible pneumonia, COPD exacerbation, Acute kidney injury, Plan: He wants to be full code and wants everything to be done. He consents to coronary angiography, however he needs to improve from his respiratory status before coronary angiography can be performed. Also we would need anesthesia/ Dr. Wall's assistance since coronary angiography will not be able to be performed in moderate conscious sedation. Non-STEMI, continue aspirin, Brilinta and Lovenox. Lipitor. Improving troponin. We will defer coronary angiography to the patient is more stable pulmonary vitale. Discussed with Dr. Wall. Patient already intubated. We will plan on coronary angiography on . Atrial fibrillation with rapid ventricular response, given Cardizem and Lopressor. Was on Lovenox full dose till this morning. However increased bleeding, therefore we'll hold it for now. Better rate control. We will try to convert to by mouth Cardizem. I'm avoiding Lopressor because of severe COPD. Acute systolic congestive heart failure, IV Lasix is recommended. Elevated BNP. Echocardiogram done 01/13/2019 shows an EF of 30-35 percent. Dilated LV with mild pulmonary hypertension. Severe respiratory failure, hypercarbic, likely multifactorial due to acute systolic congestive heart failure, severe COPD, influenza. Defer to Dr. Wall. Severe COPD, Possible pneumonia, COPD exacerbation, Acute kidney injury, improving gradually. Likely underlying chronic kidney disease. Thank you for your consultation. Please call me if you have any questions. Cynthia Wang MD, FACP, FACC, FSCAI, FHRS, CCDS Interventional Cardiology Cardiac Electrophysiology Vascular Medicine and Endovascular Interventions Focused Exam Lactate Level 01/16/19 21:32: Lactic Acid Level 0.68 Viji WANG MD Jan 17, 2019 13:19
--- NOTE | 2019-01-17 16:29 | NUR ---
Sono tech at bedside for JEFFERY
[2019-01-17] MEDS ORDERED: NS IV 1000 ML 1,000 ML ONE (17:15)
--- NOTE | 2019-01-17 17:59 | NUR ---
Dr. Wall notified of inability of anesthesia to place art line. Dr. Arias states he will place femoral art line if necessary but concerned about bleeding risk. Dr. Wall notified et stated we can hold off on art line at this time. Dr. Arias notified.
--- NOTE | 2019-01-17 18:11 | Diagnostic Imaging Report ---
EXAMINATION: Right upper extremity venous ultrasound. INDICATION: Right upper extremity swelling with a right-sided PICC line FINDINGS: Appropriate flow is evident within the right internal jugular vein and within the right subclavian vein. While technically challenging level for compression, there does appear to be some incomplete compressibility of the right axillary vein. This suggests some nonocclusive thrombus. The PICC line is demonstrated within the brachial vein. There is normal flow within the brachial vein. The visualized portions of the radial and ulnar veins are unremarkable. Basilic and cephalic veins were not imaged. IMPRESSION: Incomplete compressibility of the axillary vein suggesting a small degree of nonocclusive thrombus. The PICC line is noted within the brachial vein. There are no other findings of thrombosis evident. Dictated by: Dictated on workstation # [id number]
--- NOTE | 2019-01-17 20:00 | NUR ---
REPORT OF RIGHT UPPER EXTREMITY SENT TO DR. CHIU. THIS RN CALLED DR. CHIU AT THIS TIME TO DISCUSS REPORT AND SWELLING IN PT'S RIGHT EXTREMITY. DR. CHIU OK'D USE OF PICC LINE. ORDER ALSO RECEIVED TO RESTART LOVENOX 70 BID.
[2019-01-17] MEDS ORDERED: ENOXAPARIN 80 MG/0.8 ML (LOVENOX) SYR SC SCH (21:00)
[2019-01-17] MEDS: ATORVASTATIN 40 MG (LIPITOR) TABLET PO SCH (21:22)
[2019-01-18] VITALS (35 sets, daily range): BP systolic 89–172; BP diastolic 53–93
[2019-01-18] MEDS: methylPREDNISolone 40 MG/ML (Solu-MEDROL) VIAL IV SCH ×4 (00:40→16:58)
[2019-01-18] MEDS: RT-ALBUTEROL/IPRATROPIUM 3 ML (DUONEB) VIAL INH SCH ×6 (02:25→21:34)
[2019-01-18] MEDS ORDERED: NS IV 1000 ML 1,000 ML ONE (02:54)
[2019-01-18 02:57] LABS: ABG OXYGEN SATURATION 83 % (94-100); ABG PCO2 42 MMHG (35-45); ABG PH 7.35 (7.37-7.43); ABG PO2 55 MMHG (79-93); ABG TCO2 24.3 MMOL/L (21.0-31.0); ALLENS TEST POSITIVE; INSPIRED O2 35% FIO2; PATIENT TEMP 96.6; VENTILATOR YES
[2019-01-18 03:24] LABS: BASOPHILS % (AUTO) 0 % (0-10); EOSINOPHILS % (AUTO) 0 % (0-10); HEMATOCRIT 25 % (40-54); HEMOGLOBIN 8.4 G/DL (13.3-17.7); LYMPHOCYTES # (AUTO) 0.3 X 10^3 (1.0-4.0); LYMPHOCYTES % (AUTO) 1 % (12-44); MEAN CORPUSCULAR HEMOGLOBIN 29 PG (25-34); MEAN CORPUSCULAR HGB CONC 33 G/DL (32-36); MEAN CORPUSCULAR VOLUME 89 FL (80-99); MEAN PLATELET VOLUME 10.6 FL (7.4-10.4); MONOCYTES # (AUTO) 0.8 X 10^3 (0.0-1.0); MONOCYTES % (AUTO) 3 % (0-12); NEUTROPHILS # (AUTO) 22.9 X 10^3 (1.8-7.8); NEUTROPHILS % (AUTO) 96 % (42-75); PLATELET COUNT 212 10^3/uL (130-400); RED CELL DISTRIBUTION WIDTH 14.4 % (10.0-14.5)
[2019-01-18 03:41] LABS: CREATININE SERUM 1.84 MG/DL (0.60-1.30); MAGNESIUM 2.1 MG/DL (1.8-2.4); PHOSPHORUS 5.1 MG/DL (2.3-4.7); POTASSIUM 3.8 MMOL/L (3.6-5.0)
[2019-01-18 05:15] LABS: LYMPHOCYTES % (MANUAL) 1 %; MONOCYTES % (MANUAL) 2 %; NEUTROPHILS % (MANUAL) 97 %
[2019-01-18] MEDS: POTASSIUM CL 10MEQ/50ML IVPB 50 ML IV SCH ×2 (05:50→10:01)
[2019-01-18] MEDS: MAGNESIUM 1 GM/100 ML IVPB 100 ML IV SCH (05:51)
[2019-01-18] MEDS: KCL 20 MEQ TAB (K-DUR) PO SCH (05:51)
[2019-01-18] MEDS: RT-BUDESONIDE NEBS 0.5 MG/2ML (PULMICORT) AMP INH SCH ×2 (06:10→19:00)
[2019-01-18] MEDS: DEXMEDETOMIDINE INJECTION 1,000 MCG in NS (IVPB) 250 ML IV SCH ×2 (06:10→14:40)
[2019-01-18] MEDS: DILTIAZEM 125 MG/NS 100 ML IV SCH ×4 (06:11→15:59)
--- NOTE | 2019-01-18 06:36 | Pulmonary Progress Note ---
Subjective Time Seen by a Provider: 06:30 Subjective/Events-last exam Pt is sedated. He is requiring Levophed secondary to Hypotension. Sepsis Event Evaluation Height, Weight, BMI Height: 5'10.00" Weight: 191lbs. 0.0oz. 86.432425sn; 23.0 BMI Method:Stated Focused Exam Lactate Level 01/16/19 21:32: Lactic Acid Level 0.68 Exam Exam Vital Signs Date Time Temp Pulse Resp B/P (MAP) Pulse Ox O2 Delivery O2 Flow Rate FiO2 01/18/19 06:14 102 23 98 35 01/18/19 06:00 98 11 116/72 (87) 97 Mechanical Ventilator 30.00 01/18/19 05:00 105 22 121/77 (92) 96 Mechanical Ventilator 30.00 01/18/19 04:00 95 Mechanical Ventilator 35 01/18/19 04:00 102 12 101/80 (87) 97 Mechanical Ventilator 30.00 01/18/19 03:00 77 16 154/64 (94) 94 Mechanical Ventilator 30.00 01/18/19 02:32 Mechanical Ventilator 30.00 01/18/19 02:25 114 23 98 35 01/18/19 02:00 95 12 118/90 (99) 98 Mechanical Ventilator 35.00 01/18/19 01:58 109 01/18/19 01:00 112 12 89/53 (65) 97 Mechanical Ventilator 35.00 01/18/19 00:31 117 23 97 35 01/18/19 00:00 95 Mechanical Ventilator 35 01/18/19 00:00 118 13 89/63 (72) 98 Mechanical Ventilator 35.00 01/17/19 23:00 103 13 90/59 (69) 97 Mechanical Ventilator 35.00 01/17/19 22:17 35.00 01/17/19 22:00 106 22 98 35 01/17/19 22:00 98 12 94/67 (76) 99 Mechanical Ventilator 40.00 01/17/19 21:00 107 22 94/61 (72) 97 Mechanical Ventilator 40.00 01/17/19 20:38 98.1 99 22 119/82 96 Mechanical Ventilator 40.00 01/17/19 20:30 96 22 96 40 01/17/19 20:00 96 Mechanical Ventilator 40 01/17/19 20:00 109 13 107/68 (81) 98 Mechanical Ventilator 40.00 01/17/19 19:00 99 01/17/19 19:00 87 13 117/72 (87) 91 Mechanical Ventilator 40.00 01/17/19 18:50 89 22 97 40 01/17/19 18:00 86 22 119/82 (94) 96 Mechanical Ventilator 40.00 01/17/19 17:00 101 21 105/71 (82) 95 Mechanical Ventilator 40.00 01/17/19 16:02 97 22 94 40 01/17/19 16:00 Mechanical Ventilator 40 01/17/19 16:00 101 22 126/74 (91) 94 Mechanical Ventilator 40.00 01/17/19 15:00 93 21 92/75 (81) 90 Mechanical Ventilator 40.00 01/17/19 14:00 109 21 102/65 (77) 95 Mechanical Ventilator 40.00 01/17/19 13:36 110 22 100 40 01/17/19 13:21 116/91 01/17/19 13:10 118 01/17/19 13:00 106 22 138/80 (99) 94 Mechanical Ventilator 40.00 01/17/19 12:00 Mechanical Ventilator 35 01/17/19 12:00 109 21 111/90 (97) 91 Mechanical Ventilator 40.00 01/17/19 11:31 95 22 94 30 01/17/19 11:00 102 22 113/75 (88) 91 Mechanical Ventilator 40.00 01/17/19 10:17 Mechanical Ventilator 30.00 01/17/19 10:13 92 22 97 40 01/17/19 10:00 87 22 149/104 (119) 99 Mechanical Ventilator 40.00 01/17/19 09:36 Mechanical Ventilator 40.00 01/17/19 09:00 97 14 122/31 (61) 100 Mechanical Ventilator 60.00 01/17/19 08:45 Mechanical Ventilator 60.00 01/17/19 08:42 92 22 100 80 01/17/19 08:00 Mechanical Ventilator 80 01/17/19 08:00 77 21 117/72 (87) 100 Mechanical Ventilator 80.00 01/17/19 07:58 98.1 01/17/19 07:24 Mechanical Ventilator 80.00 01/17/19 07:16 84 01/17/19 07:00 81 13 59/48 (52) 100 Mechanical Ventilator 100.00 01/17/19 06:50 85 4/24/19 06:43 87 23 100 100 I & O 01/18/19 07:00 Intake Total 2120 ml Output Total 1525 ml Balance 595 ml Height & Weight Height: 5'10.00" Weight: 191lbs. 0.0oz. 86.467095pw; 23.0 BMI Method:Stated General Appearance: No Apparent Distress, Chronically ill, Other (intubated, sedated) HEENT: Other (ETT in place) Respiratory: Chest Non Tender, No Accessory Muscle Use, No Respiratory Distress , Decreased Breath Sounds, Wheezing (faint) Cardiovascular: Regular Rate, Rhythm, No Edema, No Murmur, Normal Peripheral Pulses Capillary Refill: Less Than 3 Seconds Gastrointestinal: normal bowel sounds, non tender, soft Extremity: Normal Capillary Refill, Swelling (both arms) Skin: Ecchymosis (left forearm) Lymphatic: No Adenopathy Results Lab Laboratory Tests 01/16/19 21:32 01/17/19 03:10 01/18/19 03:00 Assessment/Plan Assessment/Plan Acute respiratory failure- with worsening SOB -Discussed intubation with patient he wants to hold off for now however he does want intubation if absolutely needed. -SVNs Q4 -solumedrol 40 Q6 Bilateral UE edema -US question DVT in right axillary vein however not definitive -Continue Lovenox at 40mg sub q daily secondary to bleeding. Hypotension - secondary to meds/sedation, cardizem, BP meds -D/c Norvasc -Decrease Metoprolol from 125 to 100mg PO daily. -Wean Levophed to D/c as tolerated Metabolic acidosis -Check LA AFIB RVR - Cardizem -Cardiology following -Dr. Chatman is planning heart cath today Acute on chronic renal failure - IVF curently NS at 100cc/hr -Monitor Anemia -Monitor Influenza B -Tamiflu -Isolation LUE pain edema - -Dr. Arias following [facility]- 30-35% -Monitor Hx of severe oxygen dependent COPD -SVNS, oxygen Metabolic encephalopathy - -Monitor -respiradol -Morphine, and D/C precedex Leukocytosis- Probably secondary to out pt steroids - No fever -Continue Cefepime, and azithromycin add vanco -Await pain cultures and MRSA swab NSTEMI -BNP is high however he has renal failure -Cardiology consulted -Possible cath today -Tlovenox COPDAE/asthmaAE - pt does use 3liters at home. currently using 35% via BiPAP -Solumedrol then 40 Q6 -SVNS Q4, add pulmicort BID Chronic renal failure -Monitor -IVF I discussed pt in depth with Dr. Chatman. Pt is very complex with multiple issues. Prognosis is guarded. Dr. Chatman is going to add venogram to heart cath today to r/o RUE DVT. I attempted to call for consent however there was no answer. RN is going to try again in a few min. Total time spent with patient today is 45min. Critical Care: Critically Ill Patient Time spent with patient (mins): 45 ALEXANDER CHIU DO Jan 18, 2019 06:36
[2019-01-18] MEDS ORDERED: fentaNYL INJECTION 1,250 MCG in NS (IVPB) 250 ML IV SCH (06:45)
--- NOTE | 2019-01-18 07:13 | Diagnostic Imaging Report ---
INDICATION: Dyspnea. Comparison is made with prior examination from 01/17/2019. FINDINGS: There is cardiomegaly. There is some patchy right basilar infiltrate. There is no pleural effusion or pneumothorax. Lines and tubes are in satisfactory position. The mediastinum is unremarkable. IMPRESSION: Cardiomegaly and patchy right basilar infiltrate Dictated by: Dictated on workstation # [id number]
[2019-01-18] MEDS: PROPOFOL DRIP (ICU) 100 ML IV SCH ×4 (07:15→18:23)
[2019-01-18] MEDS ORDERED: FAMOTIDINE 20MG/2ML IV (PEPCID) ONE (07:50)
[2019-01-18] MEDS ORDERED: diphenhydrAMINE 50 MG/ML INJ (BENADRYL) ONE (07:50)
[2019-01-18] MEDS ORDERED: FAMOTIDINE 20MG/2ML IV (PEPCID) IV NR (07:52)
[2019-01-18 07:59] LABS: ALBUMIN 2.6 GM/DL (3.2-4.5); BILIRUBIN,TOTAL 0.3 MG/DL (0.1-1.0); CALCIUM 7.1 MG/DL (8.5-10.1); CREATININE SERUM 1.63 MG/DL (0.60-1.30); POTASSIUM 3.4 MMOL/L (3.6-5.0); TOTAL PROTEIN 4.4 GM/DL (6.4-8.2)
[2019-01-18] MEDS: diphenhydrAMINE 50 MG/ML INJ (BENADRYL) IVP SCH ×3 (07:59→15:39)
--- NOTE | 2019-01-18 08:09 | Cardiology Progress Note ---
Cardiology SOAP Progress Note Subjective: Intubated/ventilated Objective: I&O/Vital Signs 01/17/19 01/17/19 01/17/19 01/17/19 20:30 20:38 21:00 22:00 Temp 98.1 Pulse 96 99 107 98 Resp 22 22 22 12 B/P (MAP) 119/82 94/61 (72) 94/67 (76) Pulse Ox 96 96 97 99 O2 Delivery Mechanical Ventilator Mechanical Ventilator Mechanical Ventilator O2 Flow Rate 40.00 40.00 40.00 FiO2 40 01/17/19 01/17/19 01/17/19 01/18/19 22:00 22:17 23:00 00:00 Pulse 106 103 118 Resp 22 13 13 B/P (MAP) 90/59 (69) 89/63 (72) Pulse Ox 98 97 98 O2 Delivery Mechanical Ventilator Mechanical Ventilator O2 Flow Rate 35.00 35.00 35.00 FiO2 35 01/18/19 01/18/19 01/18/19 01/18/19 00:00 00:31 01:00 01:58 Pulse 117 112 109 Resp 23 12 B/P (MAP) 89/53 (65) Pulse Ox 95 97 97 O2 Delivery Mechanical Ventilator Mechanical Ventilator O2 Flow Rate 35.00 FiO2 35 35 01/18/19 01/18/19 01/18/19 01/18/19 02:00 02:25 02:32 03:00 Pulse 95 114 77 Resp 12 23 16 B/P (MAP) 118/90 (99) 154/64 (94) Pulse Ox 98 98 94 O2 Delivery Mechanical Ventilator Mechanical Ventilator Mechanical Ventilator O2 Flow Rate 35.00 30.00 30.00 FiO2 35 01/18/19 01/18/19 01/18/19 01/18/19 04:00 04:00 05:00 06:00 Pulse 102 105 98 Resp 12 22 11 B/P (MAP) 101/80 (87) 121/77 (92) 116/72 (87) Pulse Ox 97 95 96 97 O2 Delivery Mechanical Ventilator Mechanical Ventilator Mechanical Ventilator Mechanical Ventilator O2 Flow Rate 30.00 30.00 30.00 FiO2 35 01/18/19 01/18/19 01/18/19 01/18/19 06:14 07:00 07:00 07:15 Pulse 102 112 99 Resp 23 11 B/P (MAP) 120/81 (94) 120/81 Pulse Ox 98 98 O2 Delivery Mechanical Ventilator O2 Flow Rate 30.00 FiO2 35 01/18/19 08:00 Pulse 105 Resp 10 B/P (MAP) 131/80 (97) Pulse Ox 98 O2 Delivery Mechanical Ventilator O2 Flow Rate 30.00 01/18/19 00:00 Intake Total 1200 ml Output Total 900 ml Balance 300 ml Weight (Pounds): 191 Weight (Ounces): 0.0 Weight (Calculated Kilograms): 86.664191 Constitutional: other (intubated/ventilated.) Respiratory: No accessory muscle use, No chest tender, No chest expansion is symmetric; chest is bilaterally symmetric; No lungs clear to percussion; lungs clear to auscultation, crackles; No rhonchi, No rales, No stridor, No wheezing, No pleural rub, No other Cardiovascular: irregularly irregular; No extra beats, No parasternal heave is noted, No JVD, No edema, No bradycardia; tachycardia; No point of maximal impulse, No cardiac thrills are palpable; S1 and S2; No gallop/S3, No gallop/S4 , No diastolic murmur, No systolic murmur, No friction rub, No click, No other Gastrointestional: No tender, No soft, No round, No distended, No pulsatile mass, No organomegaly, No guarding, No rebound, No tenderness, No hernia, No mass, No audible bowel sounds, No abnormal bowel sounds, No abdominal bruits, No spleenomegaly, No other Extremities: No normal range of motion, No non-tender, No normal inspection, No pedal edema, No calf tenderness, No normal capillary refill, No pelvis stable , No calf tenderness, No inflammation, No pedal edema, No slow capillary refill , No swelling, No other, No abrasion, No clubbing, No cyanosis, No ecchymosis, No laceration, No no lower extremity edema bilateral, No significant edema, No tenderness, No wound Neurologic/Psychiatric: other (intubated/ventilated.) Skin: No normal color, No warm/dry, No cyanosis, No cool, No diaphoresis, No damp, No ecchymosis, No jaundice, No mottled, No pallor, No rash, No tattoos/ piercings, No ulcerations, No rash on exposed areas, No ulcerations on exposed areas, No other Results/Procedures: Labs Laboratory Tests 01/17/19 08:38: Blood Gas Puncture Site R RADIAL, Blood Gas Patient Temperature 97.6, Arterial Blood pH 7.30*L, Arterial Blood Partial Pressure CO2 53H, Arterial Blood Partial Pressure O2 252H, Arterial Blood HCO3 26, Arterial Blood Total CO2 27.2 , Arterial Blood Oxygen Saturation 100, Arterial Blood Base Excess -0.3, Siva Test YES-POS, Blood Gas Ventilator Setting YES, Blood Gas Inspired Oxygen 80% 01/17/19 10:43: Blood Gas Puncture Site RT RADIAL, Blood Gas Patient Temperature 96.9, Arterial Blood pH 7.37, Arterial Blood Partial Pressure CO2 41, Arterial Blood Partial Pressure O2 68L, Arterial Blood HCO3 24, Arterial Blood Total CO2 25.1, Arterial Blood Oxygen Saturation 92L, Arterial Blood Base Excess -0.9, Siva Test YES-POS, Blood Gas Ventilator Setting YES, Blood Gas Inspired Oxygen 30% 01/17/19 11:33: Glucometer 190H 01/17/19 17:45: Glucometer 182H 01/18/19 02:50: Blood Gas Puncture Site RIGHT RADIAL, Blood Gas Patient Temperature 96.6, Arterial Blood pH 7.35L, Arterial Blood Partial Pressure CO2 42, Arterial Blood Partial Pressure O2 55L, Arterial Blood HCO3 23, Arterial Blood Total CO2 24.3, Arterial Blood Oxygen Saturation 83L, Arterial Blood Base Excess -2.0, Siva Test POSITIVE, Blood Gas Ventilator Setting YES, Blood Gas Inspired Oxygen 35% FIO2 01/18/19 03:00: White Blood Count 24.0H, Red Blood Count 2.85L, Hemoglobin 8.4L, Hematocrit 25L , Mean Corpuscular Volume 89, Mean Corpuscular Hemoglobin 29, Mean Corpuscular Hemoglobin Concent 33, Red Cell Distribution Width 14.4, Platelet Count 212, Mean Platelet Volume 10.6H, Neutrophils (%) (Auto) 96H, Lymphocytes (%) (Auto) 1L, Monocytes (%) (Auto) 3, Eosinophils (%) (Auto) 0, Basophils (%) (Auto) 0, Neutrophils # (Auto) 22.9H, Lymphocytes # (Auto) 0.3L, Monocytes # (Auto) 0.8, Eosinophils # (Auto) 0.0, Basophils # (Auto) 0.0, Neutrophils % (Manual) 97, Lymphocytes % (Manual) 1, Monocytes % (Manual) 2, Sodium Level 140, Potassium Level 3.8, Chloride Level 108H, Carbon Dioxide Level 20L, Anion Gap 12, Blood Urea Nitrogen 58H, Creatinine 1.84H, Estimat Glomerular Filtration Rate 37, BUN/ Creatinine Ratio 32, Glucose Level 174H, Calcium Level 8.0L, Phosphorus Level 5.1H, Magnesium Level 2.1, B-Type Natriuretic Peptide 164.8H 01/18/19 07:30: Sodium Level 138, Potassium Level 3.4L, Chloride Level 110H, Carbon Dioxide Level 18L, Anion Gap 10, Blood Urea Nitrogen 55H, Creatinine 1.63H, Estimat Glomerular Filtration Rate 42, BUN/Creatinine Ratio 34, Glucose Level 177H, Calcium Level 7.1L, Lactic Acid Level 0.81, Corrected Calcium 8.2L, Total Bilirubin 0.3, Aspartate Amino Transf (AST/SGOT) 23, Alanine Aminotransferase ( ALT/SGPT) 21, Alkaline Phosphatase 35L, Total Protein 4.4L, Albumin 2.6L Microbiology 01/13/19 Blood Culture - Preliminary, Resulted No growth 01/13/19 MRSA Screen - Final, Complete MRSA not isolated A/P: Assessment/Dx: Non-STEMI, Acute systolic congestive heart failure, Persistent atrial fibrillation with rapid ventricular rate, Possible right axillary DVT, Severe respiratory failure, hypercarbic Severe COPD, Possible pneumonia, COPD exacerbation, Acute kidney injury, Plan: He wants to be full code and wants everything to be done. He consents to coronary angiography, however he needs to improve from his respiratory status before coronary angiography can be performed. Also we would need anesthesia/ Dr. Wall's assistance since coronary angiography will not be able to be performed in moderate conscious sedation. Non-STEMI, continue aspirin, Brilinta and Lovenox. Lipitor. Improving troponin. We will defer coronary angiography to the patient is more stable pulmonary vitale. Discussed with Dr. Wall. Patient already intubated. We will plan on coronary angiography on . Patient has contrast allergy. We will give steroids and Benadryl. Possibility of right axillary DVT. Inconclusive ultrasound. Dr. Wall requests a venogram. Consent for venogram taken from . We will perform venogram through the PICC line. Atrial fibrillation with rapid ventricular response, hypotensive, therefore discontinue Lopressor and gradually taper off Cardizem. Acute systolic congestive heart failure, IV Lasix is recommended. Elevated BNP. Echocardiogram done 01/13/2019 shows an EF of 30-35 percent. Dilated LV with mild pulmonary hypertension. Severe respiratory failure, hypercarbic, likely multifactorial due to acute systolic congestive heart failure, severe COPD, influenza. Defer to Dr. Wall. Severe COPD, Possible pneumonia, COPD exacerbation, Acute kidney injury, improving gradually. Likely underlying chronic kidney disease. Critically ill patient. Thank you for your consultation. Please call me if you have any questions. Cynthia Wang MD, FACP, FACC, FSCAI, FHRS, CCDS Interventional Cardiology Cardiac Electrophysiology Vascular Medicine and Endovascular Interventions Focused Exam Lactate Level 01/16/19 21:32: Lactic Acid Level 0.68 01/18/19 07:30: Lactic Acid Level 0.81 Lactic Acid Level Laboratory Tests Test 01/18/19 07:30 Lactic Acid Level 0.81 MMOL/L (0.50-2.00) Viji WANG MD Jan 18, 2019 8:09 am
--- NOTE | 2019-01-18 08:31 | Cardiac Procedure Note-CS/ASA ---
Pre-Procedure Note Pre-Op Procedure Note H&P Reviewed The H&P was reviewed, patient examined and no changes noted. Date H&P Reviewed: Jan 18, 2019 Time H&P Reviewed: 08:31 Conscious Sedation Pre-Proced Time 08:31 ASA Score 3 For ASA 3 and 4: Consider anesthesia and medical clearance. Also, for patients with a history of failed moderate sedation consider anesthesia. Airway Lungs Heart ASA score ASA 1: a normal healthy patient ASA 2: a patient with a mild systemic disease (mid diabetes, controlled hypertension, obesity ASA 3: a patient with a severe systemic disease that limits activity (angina , COPD, prior Myocardial infarction) ASA 4: a patient with an incapacitating disease that is a constant threat to life (CHF, renal failure) ASA 5: a moribund patient not expected to survive 24 hrs. (ruptured aneurysm) ASA 6: a declared brain- patient whose organs are being harvested. For emergent operations, add the letter E after the classification Mallampati Classification Grade 1 Sedation Plan Analgesia, Amnesia, Plan communicated to team members, Discussed options with patient/fam, Discussed risks with patient/fam The patient is an appropriate candidate to undergo the planned procedure, sedation, and anesthesia. The patient immediately re-assessed prior to indication. Viji WANG MD Jan 18, 2019 8:31 am
[2019-01-18] MEDS ORDERED: HEParin 1000 UNIT/ML (10ML VIAL) FOR BOLUS ONE (08:56)
[2019-01-18] MEDS ORDERED: ENOXAPARIN 40 MG/0.4 ML (LOVENOX) SYR SC SCH (09:00)
--- NOTE | 2019-01-18 09:44 | Coronary Angiography & PCI ---
Coronary Angiography & PCI DATE OF PROCEDURE: 01/18/19 INDICATION: Non-STEMI, cardiomyopathy. PREOPERATIVE DIAGNOSIS: Non-STEMI, cardiomyopathy. POSTOPERATIVE DIAGNOSIS: One-vessel CAD, status post PCI. HISTORY: This is a 68-year-old gentleman with severe oxygen-dependent COPD, active smoking who presented in respiratory failure and complained of chest discomfort. Echocardiogram showed reduced LV systolic function. Positive troponins with a working diagnosis of non-ST elevation IL. COPD exacerbation with pneumonia and severe respiratory distress requiring intubation/ ventilation. Atrial fibrillation with rapid ventricular rate. Mildly reduce blood pressure requiring low-dose vasopressors. Likely right axillary DVT. Considering all of the above including borderline blood pressure requiring low- dose inotropes, non-STEMI, new onset cardiomyopathy, the patient was scheduled for coronary angiography. Extensive discussion with the and consent taken. PROCEDURES PERFORMED: 1.Coronary angiography. 2.Left heart catheterization. 3.PCI to the mid left circumflex artery with a drug-eluting stent. COMPLICATIONS: None. SPECIMENS: None. ESTIMATED BLOOD LOSS: 10 mL ANESTHESIA: Conscious sedation ANTICOAGULATION: IV heparin CONTRAST: 90 mL. FLUOROSCOPY: 13.4 minutes. FLOUROSCOPY DOSE: 755 mgy. PROCEDURE DETAILS: The patient is a 68 male and was brought to the labor and employment paralegal after informed consent was taken from the patient previously and from the as well. I had extensive discussion with the patient when he was not intubated and as well as the . Currently the patient is intubated/ventilated. The patient was draped and prepped in the usual sterile fashion. Access was gained in the right femoral artery with a 6 Gu[place]ian sheath. Coronary angiography and left heart catheterization was performed with a JR4 and a JL4 catheter. FINDINGS: 1.Left main: Patent. 2.LAD: Patent. 3.Left circumflex artery: Moderate to severe stenosis in the mid left circumflex artery. Stenosis severity 70 percent. 4.RCA: Patent. 5.Left heart catheterization: LV pressure 104/-3 mmHg. LVEDP 12 mmHg. Aortic pressure 101/69 mmHg. Mildly reduce LV function with an EF of 45 percent. No gradient across the aortic valve. RECOMMENDATIONS: PCI to the mid left circumflex artery is recommended. INTERVENTION DETAILS: Patient was already on Brilinta 90 mg twice a day. 4000 of IV heparin was given. We started off with a JL4 guide catheter but were not able to engage the left coronary system. We switched to a JL 4.5 guide catheter however we were still not able to engage. We will finally able to engage with an EBU 4 guide catheter. BMW guidewire. The lesion was crossed with the BMW guidewire and the tip was placed in the mid distal OM artery. Direct stenting was performed with a Xience Nancy 3 x 12 mm stent at 16 lorne for 12 seconds. Excellent post results with no residual stenosis and VIKASH-3 flow. The patient tolerated procedure well and did not have any complication. Right femoral artery was closed with a minx device. CONCLUSIONS: 1. Single vessel CAD treated with drug-eluting stent. 2. Continue dual antiplatelet therapy. 3. Continue ICU management. Right upper extremity was swollen therefore we could not get any venous access. Right upper extremity venogram could not be done from the PICC line since the tip was in the distal superior vena cava. To perform an venogram from the right femoral vein we would have had to cross the possible axillary DVT and potentially cause it to embolize. I discussed with Dr. Wall and decided not to pursue it and just treat the patient like Axillary DVT. Cynthia Chatman MD, FACP, FACC, [facility] Interventional Cardiology Viji CHATMAN MD Jan 18, 2019 09:44
[2019-01-18] MEDS ORDERED: PATIENT MAY USE OWN MEDS, ALL PO SCH (09:45)
[2019-01-18] MEDS: CEFEPIME INJECTION 2,000 MG in WATER (STERILE) FOR INJECTION 20 ML IV SCH (09:58)
[2019-01-18] MEDS: PANTOPRAZOLE 40 MG (PROTONIX) VIAL IV SCH (09:58)
--- NOTE | 2019-01-18 09:58 | Progress Note-Hospitalist ---
Subjective HPI/CC On Admission Date Seen by Provider: Jan 18, 2019 Time Seen by Provider: 00:00 Subjective/Events-last exam Pt down in cardiac catheterization currently. Maintained intubated. Overall prognosis poor. Right upper extremity did reveal a clot in the venous system on ultrasound yesterday. Overall poor prognosis. Focused Exam Lactate Level 01/16/19 21:32: Lactic Acid Level 0.68 01/18/19 07:30: Lactic Acid Level 0.81 Lactic Acid Level Objective Exam Vital Signs Vital Signs Date Time Temp Pulse Resp B/P (MAP) Pulse Ox O2 Delivery O2 Flow Rate FiO2 01/18/19 18:23 130/76 01/18/19 18:00 90 21 98 Mechanical Ventilator 30.00 01/18/19 16:05 35 01/18/19 16:00 97.6 Capillary Refill : Less Than 3 Seconds General Appearance: No Apparent Distress, Chronically ill, Other (intubated, sedated) HEENT: Other (ETT in place) Respiratory: Chest Non Tender, No Accessory Muscle Use, No Respiratory Distress , Decreased Breath Sounds, Wheezing (faint) Cardiovascular: Regular Rate, Rhythm, No Edema, No Murmur, Normal Peripheral Pulses Gastrointestinal: Normal Bowel Sounds, No Organomegaly, Soft Extremity: Normal Capillary Refill, Swelling (both arms) Skin: Ecchymosis (left forearm) Lymphatic: No Adenopathy Results/Procedures Lab Laboratory Tests 01/18/19 03:00 01/18/19 07:30 Patient resulted labs reviewed. Assessment/Plan Assessment and Plan Assess & Plan/Chief Complaint [facility] Crit[facility] status Confusion due to metabolic encephalopathy Plan: ICU USG left arm negative Very complex case Intubation Critical Care Critically Ill Patient Diagnosis/Problems Diagnosis/Problems (1) Ventilator dependence Status: Acute (2) Atrial fibrillation with rapid ventricular response Status: Acute (3) COPD exacerbation Status: Acute (4) Chronic kidney disease Status: Chronic Qualifiers: Chronic kidney disease stage: stage 3 (moderate) Qualified Codes: N18.3 - Chronic kidney disease, stage 3 (moderate) (5) Influenza B Status: Acute (6) Chronic pain Status: Chronic Qualifiers: Chronic pain type: chronic pain syndrome Qualified Codes: G89.4 - Chronic pain syndrome (7) Acute and chronic respiratory failure Status: Acute (8) Hypertension Status: Chronic Qualifiers: Hypertension type: essential hypertension Qualified Codes: I10 - Essential (primary) hypertension (9) Anxiety Status: Chronic (10) NSTEMI (non-ST elevated myocardial infarction) Status: Acute (11) Pneumonia Status: Acute Qualifiers: Pneumonia type: due to unspecified organism Laterality: unspecified laterality Lung location: unspecified part of lung Qualified Codes: J18.9 - Pneumonia, unspecified organism (12) COPD (chronic obstructive pulmonary disease) Status: Acute Qualifiers: COPD type: COPD with acute lower respiratory infection Qualified Codes: J44.0 - Chronic obstructive pulmonary disease with acute lower respiratory infection (13) DVT prophylaxis Status: Acute (14) Pain and swelling of left upper extremity Status: Acute (15) Confusion Status: Acute (16) Respiratory failure Status: Acute Qualifiers: Chronicity: acute on chronic Respiratory failure complication: unspecified whether with hypoxia or hypercapnia Qualified Codes: J96.20 - Acute and chronic respiratory failure, unspecified whether with hypoxia or hypercapnia Clinical Quality Measures DVT/VTE Risk/Contraindication: Risk Factor Score Per Nursin RFS Level Per Nursing on Admit: 4+=Very High YANET JAIMES DO Jan 18, 2019 09:58
[2019-01-18] MEDS: TICAGRELOR 90 MG TABLET (BRILINTA) PO SCH ×3 (09:59→21:49)
[2019-01-18] MEDS: risperiDONE 0.25 MG (RisperDAL) TAB PO SCH ×2 (09:59→21:49)
[2019-01-18] MEDS: ASPIRIN E.C. 81 MG (ECOTRIN) TAB PO SCH (09:59)
[2019-01-18] MEDS: NS IV 1000 ML 1,000 ML IV SCH ×2 (09:59→12:42)
[2019-01-18] MEDS: NOREPINEPHRINE 4 MG in NS (IVPB) 250 ML IV SCH (12:38)
[2019-01-18] MEDS ORDERED: HEParin (CATH LAB) 2,000 ML IV ONE (13:06)
[2019-01-18] MEDS ORDERED: LIDOCAINE 1% INJ 20 ML 20 ML VIAL ONE (13:06)
[2019-01-18] MEDS: inSUlin ASPART (NovoLOG) 1 UNIT/0.01 ML (CHARGE PER UNIT) SQ PRN (15:45)
[2019-01-18] MEDS: HYDROcodone/APAP 7.5 MG/325 MG (LORTAB, LORCET PLUS) TABLET PO PRN (15:59)
[2019-01-18] MEDS: ATORVASTATIN 40 MG (LIPITOR) TABLET PO SCH (21:49)
[2019-01-19] VITALS (36 sets, daily range): BP systolic 91–146; BP diastolic 56–92
[2019-01-19] MEDS: methylPREDNISolone 40 MG/ML (Solu-MEDROL) VIAL IV SCH ×5 (00:19→23:01)
[2019-01-19] MEDS: PROPOFOL DRIP (ICU) 100 ML IV SCH ×6 (00:20→23:02)
[2019-01-19] MEDS: NS IV 1000 ML 1,000 ML IV SCH ×3 (00:22→18:31)
[2019-01-19] MEDS: DEXMEDETOMIDINE INJECTION 1,000 MCG in NS (IVPB) 250 ML IV SCH ×3 (00:22→20:16)
[2019-01-19] MEDS: inSUlin ASPART (NovoLOG) 1 UNIT/0.01 ML (CHARGE PER UNIT) SQ PRN ×3 (00:27→18:31)
[2019-01-19] MEDS: RT-ALBUTEROL/IPRATROPIUM 3 ML (DUONEB) VIAL INH SCH ×6 (01:01→22:44)
[2019-01-19 03:33] LABS: BASOPHILS % (AUTO) 0 % (0-10); EOSINOPHILS % (AUTO) 0 % (0-10); HEMATOCRIT 21 % (40-54); HEMOGLOBIN 7.2 G/DL (13.3-17.7); LYMPHOCYTES # (AUTO) 0.2 X 10^3 (1.0-4.0); LYMPHOCYTES % (AUTO) 1 % (12-44); MEAN CORPUSCULAR HEMOGLOBIN 30 PG (25-34); MEAN CORPUSCULAR HGB CONC 34 G/DL (32-36); MEAN CORPUSCULAR VOLUME 88 FL (80-99); MONOCYTES # (AUTO) 0.8 X 10^3 (0.0-1.0); MONOCYTES % (AUTO) 4 % (0-12); NEUTROPHILS # (AUTO) 18.5 X 10^3 (1.8-7.8); NEUTROPHILS % (AUTO) 95 % (42-75); PLATELET COUNT 179 10^3/uL (130-400); RED CELL DISTRIBUTION WIDTH 14.1 % (10.0-14.5); WHITE BLOOD COUNT 19.5 10^3/uL (4.3-11.0)
[2019-01-19 03:36] LABS: ABG BASE EXCESS -2.3 MMOL/L (-2.5-2.5); ABG OXYGEN SATURATION 92 % (94-100); ABG PCO2 35 MMHG (35-45); ABG PH 7.41 (7.37-7.43); ABG PO2 66 MMHG (79-93); ABG TCO2 22.9 MMOL/L (21.0-31.0)
[2019-01-19 03:39] LABS: ALLENS TEST POSITIVE; INSPIRED O2 30%; PATIENT TEMP 97.2; VENTILATOR YES
[2019-01-19 03:49] LABS: CALCIUM 7.7 MG/DL (8.5-10.1); CREATININE SERUM 1.85 MG/DL (0.60-1.30); MAGNESIUM 2.1 MG/DL (1.8-2.4); POTASSIUM 3.7 MMOL/L (3.6-5.0)
[2019-01-19] MEDS: DILTIAZEM 125 MG/NS 100 ML IV SCH ×6 (04:48→21:39)
--- NOTE | 2019-01-19 06:18 | Pulmonary Progress Note ---
Subjective Time Seen by a Provider: 06:50 Subjective/Events-last exam Sedated on vent Sepsis Event Evaluation Height, Weight, BMI Height: 5'10.00" Weight: 191lbs. 0.0oz. 86.876011gw; 23.0 BMI Method:Stated Focused Exam Lactate Level 01/16/19 21:32: Lactic Acid Level 0.68 01/18/19 07:30: Lactic Acid Level 0.81 Exam Exam Vital Signs Date Time Temp Pulse Resp B/P (MAP) Pulse Ox O2 Delivery O2 Flow Rate FiO2 01/19/19 06:00 117 12 108/88 (95) 96 Mechanical Ventilator 30.00 01/19/19 05:00 106 21 95/56 (69) 92 Mechanical Ventilator 30.00 01/19/19 04:48 91/68 01/19/19 04:46 102 23 96 30 01/19/19 04:00 94 Mechanical Ventilator 30 01/19/19 04:00 108 13 94/65 (75) 94 Mechanical Ventilator 30.00 01/19/19 03:00 116 21 105/70 (82) 94 Mechanical Ventilator 30.00 01/19/19 02:00 110 25 118/70 (86) 91 Mechanical Ventilator 30.00 01/19/19 01:05 112 24 93 30 01/19/19 01:00 107 01/19/19 01:00 101 16 104/73 (83) 93 Mechanical Ventilator 30.00 01/19/19 00:20 118/75 01/19/19 00:00 93 Mechanical Ventilator 30 01/19/19 00:00 96 12 114/72 (86) 95 Mechanical Ventilator 30.00 01/18/19 23:00 101 12 109/74 (86) 93 Mechanical Ventilator 30.00 01/18/19 22:00 102 11 131/72 (91) 95 Mechanical Ventilator 30.00 01/18/19 21:35 90 22 100 35 01/18/19 21:00 93 11 112/80 (91) 100 Mechanical Ventilator 35.00 01/18/19 20:00 94 Mechanical Ventilator 35 01/18/19 20:00 92 11 106/74 (85) 100 Mechanical Ventilator 35.00 01/18/19 19:03 90 24 98 35 01/18/19 19:00 90 11 103/65 (78) 97 Mechanical Ventilator 35.00 01/18/19 19:00 81 01/18/19 18:23 130/76 01/18/19 18:00 90 21 119/81 (94) 98 Mechanical Ventilator 30.00 01/18/19 17:00 100 10 105/93 (97) 98 Mechanical Ventilator 30.00 01/18/19 16:05 99 22 96 35 01/18/19 16:00 95 Mechanical Ventilator 35 01/18/19 16:00 107 12 115/74 (88) 94 Mechanical Ventilator 30.00 01/18/19 16:00 97.6 01/18/19 15:00 98 17 109/68 (82) 87 Mechanical Ventilator 30.00 01/18/19 14:45 105 22 92 35 01/18/19 14:00 90 17 137/78 (97) 98 Mechanical Ventilator 30.00 01/18/19 13:00 90 17 134/73 (93) 97 Mechanical Ventilator 30.00 01/18/19 12:45 87 01/18/19 12:00 95 Mechanical Ventilator 35 01/18/19 12:00 98.1 01/18/19 12:00 86 17 118/74 (89) 97 Mechanical Ventilator 30.00 01/18/19 11:45 136/81 01/18/19 11:39 136/81 01/18/19 11:30 85 9 136/81 (99) 96 Mechanical Ventilator 30.00 01/18/19 11:00 105 17 113/72 (86) 95 Mechanical Ventilator 30.00 01/18/19 10:45 99 19 130/83 (99) 96 Mechanical Ventilator 30.00 01/18/19 10:39 87 22 95 35 01/18/19 10:30 85 11 124/81 (95) 96 Mechanical Ventilator 30.00 01/18/19 10:15 76 10 172/83 (112) 99 Mechanical Ventilator 30.00 01/18/19 10:00 90 7 130/73 (92) 100 Mechanical Ventilator 30.00 01/18/19 08:00 97.3 01/18/19 08:00 105 10 131/80 (97) 98 Mechanical Ventilator 30.00 01/18/19 08:00 95 Mechanical Ventilator 35 01/18/19 07:15 120/81 01/18/19 07:00 99 01/18/19 07:00 112 11 120/81 (94) 98 Mechanical Ventilator 30.00 01/18/19 06:14 102 23 98 35 I & O 01/19/19 07:00 Intake Total 3039 ml Output Total 1675 ml Balance 1364 ml Height & Weight Height: 5'10.00" Weight: 191lbs. 0.0oz. 86.687703tl; 23.0 BMI Method:Stated General Appearance: No Apparent Distress, Chronically ill, Other (intubated, sedated) HEENT: Other (ETT in place) Respiratory: Chest Non Tender, No Accessory Muscle Use, No Respiratory Distress , Decreased Breath Sounds, Wheezing (faint) Cardiovascular: Regular Rate, Rhythm, No Edema, No Murmur, Normal Peripheral Pulses Capillary Refill: Less Than 3 Seconds Gastrointestinal: normal bowel sounds, non tender, soft Extremity: Normal Capillary Refill, Swelling (both arms) Skin: Ecchymosis (left forearm) Lymphatic: No Adenopathy Results Lab Laboratory Tests 01/18/19 03:00 01/18/19 07:30 01/19/19 03:06 Assessment/Plan Assessment/Plan Acute respiratory failure- with worsening SOB -sedated on vent -Not ready to wean yet -SVNs Q4 -Cefepime, add diflucan -Start TF -solumedrol 40 Q6 Bilateral UE edema -Doppler of LUE questions axillary nonocclusive DVT -Continue Lovenox will increase to 40mg sub q BID and monitor Hb. Anemia - monitor -Transfuse 1 unit PRBC -Check occult stool Hypotension - secondary to meds/sedation, cardizem, BP meds -D/c Norvasc -D/C Metoprolol -Wean Levophed to D/c as tolerated Systolic CHF -Cautious IVF ARF Acute on chronic renal failure - IVF curently NS at 100cc/hr -Monitor Metabolic acidosis -Check LA AFIB RVR - Cardizem -Cardiology following -Dr. Chatman is planning heart cath today Anemia -Monitor Influenza B - s/p treatment LUE pain edema - -Dr. Arias following [facility]- 30-35% -Monitor Hx of severe oxygen dependent COPD -SVNS, oxygen Metabolic encephalopathy - -Monitor -respiradol -Morphine, Leukocytosis- Probably secondary to out pt steroids - No fever -Continue Cefepime NSTEMI -BNP is high however he has renal failure -Cardiology consulted -Possible cath today -Tlovenox COPDAE/asthmaAE - pt does use 3liters at home. currently using 35% via BiPAP -Solumedrol then 40 Q6 -SVNS Q4, add pulmicort BID Chronic renal failure -Monitor -IVF ALEXANDER CHIU DO Jan 19, 2019 06:18
[2019-01-19] MEDS: MAGNESIUM 1 GM/100 ML IVPB 100 ML IV SCH (06:40)
[2019-01-19] MEDS: KCL 20 MEQ TAB (K-DUR) PO SCH (06:40)
[2019-01-19] MEDS ORDERED: LACTATED RINGERS 1,000 ML IV ONE (06:45)
[2019-01-19] MEDS: RT-BUDESONIDE NEBS 0.5 MG/2ML (PULMICORT) AMP INH SCH ×2 (07:02→18:55)
[2019-01-19] MEDS ORDERED: FLUCONAZOLE 200 MG/100 ML 100 ML IV NR (07:15)
--- NOTE | 2019-01-19 07:40 | Diagnostic Imaging Report ---
Clinical indication: Patient on ventilator, pneumonia, COPD, NST ARMIDA, ICU care management. Exam: Portable chest x-ray upright view. Comparison: Portable chest x-ray dated 01/18/2019. Findings: Again seen ET tube with tip in good position and now seen grossly 3.4 cm from level of erik. Right PICC line seen in stable position. Orogastric feeding tube seen below level of diaphragm, with its distal portion not completely visualized. Cardiac silhouette is now within normal limits. Pulmonary vasculature is within normal limits. Stable mild patchy airspace opacities in the right midlung field and right lung base and slight increased airspace opacities in left lung base. The remainder of this exam shows no significant interval change compared to the prior study of comparison. Impression: 1: There is right midlung field and bibasilar atelectasis versus infiltrate which has increased in the left lung base and is not significantly changed in the right lung base. 2: Cardiac silhouette is now within normal limits. There is no pulmonary vascular congestion. Dictated by: Dictated on workstation # [id number]
[2019-01-19] MEDS: ENOXAPARIN 100 MG/1 ML (LOVENOX) SYR SC SCH ×3 (08:30→21:38)
[2019-01-19] MEDS: PANTOPRAZOLE 40 MG (PROTONIX) VIAL IV SCH (08:31)
[2019-01-19] MEDS: CEFEPIME INJECTION 2,000 MG in WATER (STERILE) FOR INJECTION 20 ML IV SCH (08:32)
[2019-01-19] MEDS: TICAGRELOR 90 MG TABLET (BRILINTA) PO SCH ×2 (08:32→21:39)
[2019-01-19] MEDS: ASPIRIN E.C. 81 MG (ECOTRIN) TAB PO SCH (08:33)
[2019-01-19] MEDS: risperiDONE 0.25 MG (RisperDAL) TAB PO SCH ×2 (08:33→21:39)
--- NOTE | 2019-01-19 10:02 | Cardiology Progress Note ---
Cardiology SOAP Progress Note Subjective: Intubated/ventilated. Status post PCI to mid left circumflex artery yesterday with drug-eluting stent. Objective: I&O/Vital Signs 01/18/19 01/19/19 01/19/19 01/19/19 23:00 00:00 00:00 00:00 Temp 98.1 Pulse 101 96 Resp 12 12 B/P (MAP) 109/74 (86) 114/72 (86) Pulse Ox 93 95 93 O2 Delivery Mechanical Ventilator Mechanical Ventilator Mechanical Ventilator O2 Flow Rate 30.00 30.00 FiO2 30 01/19/19 01/19/19 01/19/19 01/19/19 00:20 01:00 01:00 01:05 Pulse 101 107 112 Resp 16 24 B/P (MAP) 118/75 104/73 (83) Pulse Ox 93 93 O2 Delivery Mechanical Ventilator O2 Flow Rate 30.00 FiO2 30 01/19/19 01/19/19 01/19/19 01/19/19 02:00 03:00 04:00 04:00 Temp 97.8 Pulse 110 116 108 Resp 25 21 13 B/P (MAP) 118/70 (86) 105/70 (82) 94/65 (75) Pulse Ox 91 94 94 O2 Delivery Mechanical Ventilator Mechanical Ventilator Mechanical Ventilator O2 Flow Rate 30.00 30.00 30.00 01/19/19 01/19/19 01/19/19 01/19/19 04:00 04:46 04:48 05:00 Pulse 102 106 Resp 23 21 B/P (MAP) 91/68 95/56 (69) Pulse Ox 94 96 92 O2 Delivery Mechanical Ventilator Mechanical Ventilator O2 Flow Rate 30.00 FiO2 30 30 01/19/19 01/19/19 01/19/19 01/19/19 06:00 07:00 07:00 07:02 Pulse 117 103 89 101 Resp 12 12 24 B/P (MAP) 108/88 (95) 125/68 (87) Pulse Ox 96 96 95 O2 Delivery Mechanical Ventilator Mechanical Ventilator O2 Flow Rate 30.00 30.00 FiO2 30 01/19/19 01/19/19 01/19/19 01/19/19 08:00 08:48 09:00 09:54 Temp 97.6 Pulse 112 112 Resp 10 12 B/P (MAP) 111/69 (83) 116/82 (93) 142/83 Pulse Ox 95 96 O2 Delivery Mechanical Ventilator Mechanical Ventilator O2 Flow Rate 30.00 30.00 01/19/19 00:00 Intake Total 2839 ml Output Total 1275 ml Balance 1564 ml Weight (Pounds): 190 Weight (Ounces): 0.0 Weight (Calculated Kilograms): [id number] Constitutional: other (intubated/ventilated.) Respiratory: No accessory muscle use, No chest tender, No chest expansion is symmetric; chest is bilaterally symmetric; No lungs clear to percussion; lungs clear to auscultation, crackles; No rhonchi, No rales, No stridor, No wheezing, No pleural rub, No other Cardiovascular: irregularly irregular; No extra beats, No parasternal heave is noted, No JVD, No edema, No bradycardia; tachycardia; No point of maximal impulse, No cardiac thrills are palpable; S1 and S2; No gallop/S3, No gallop/S4 , No diastolic murmur, No systolic murmur, No friction rub, No click, No other Gastrointestional: No tender, No soft, No round, No distended, No pulsatile mass, No organomegaly, No guarding, No rebound, No tenderness, No hernia, No mass, No audible bowel sounds, No abnormal bowel sounds, No abdominal bruits, No spleenomegaly, No other Extremities: No normal range of motion, No non-tender, No normal inspection, No pedal edema, No calf tenderness, No normal capillary refill, No pelvis stable , No calf tenderness, No inflammation, No pedal edema, No slow capillary refill , No swelling, No other, No abrasion, No clubbing, No cyanosis, No ecchymosis, No laceration, No no lower extremity edema bilateral, No significant edema, No tenderness, No wound Neurologic/Psychiatric: other (intubated/ventilated.) Skin: No normal color, No warm/dry, No cyanosis, No cool, No diaphoresis, No damp, No ecchymosis, No jaundice, No mottled, No pallor, No rash, No tattoos/ piercings, No ulcerations, No rash on exposed areas, No ulcerations on exposed areas, No other Results/Procedures: Labs Laboratory Tests 01/18/19 15:40: Glucometer 211H 01/19/19 00:25: Glucometer 222H 01/19/19 03:06: White Blood Count 19.5H, Red Blood Count 2.42L, Hemoglobin 7.2L, Hematocrit 21L , Mean Corpuscular Volume 88, Mean Corpuscular Hemoglobin 30, Mean Corpuscular Hemoglobin Concent 34, Red Cell Distribution Width 14.1, Platelet Count 179, Mean Platelet Volume 11.0H, Neutrophils (%) (Auto) 95H, Lymphocytes (%) (Auto) 1L, Monocytes (%) (Auto) 4, Eosinophils (%) (Auto) 0, Basophils (%) (Auto) 0, Neutrophils # (Auto) 18.5H, Lymphocytes # (Auto) 0.2L, Monocytes # (Auto) 0.8, Eosinophils # (Auto) 0.0, Basophils # (Auto) 0.0, Blood Gas Puncture Site RIGHT RADIAL, Blood Gas Patient Temperature 97.2, Arterial Blood pH 7.41, Arterial Blood Partial Pressure CO2 35, Arterial Blood Partial Pressure O2 66L, Arterial Blood HCO3 22L, Arterial Blood Total CO2 22.9, Arterial Blood Oxygen Saturation 92L, Arterial Blood Base Excess -2.3, Siva Test POSITIVE, Blood Gas Ventilator Setting YES, Blood Gas Inspired Oxygen 30%, Sodium Level 142, Potassium Level 3.7, Chloride Level 112H, Carbon Dioxide Level 20L, Anion Gap 10, Blood Urea Nitrogen 53H, Creatinine 1.85H, Estimat Glomerular Filtration Rate 37, BUN/ Creatinine Ratio 29, Glucose Level 176H, Calcium Level 7.7L, Phosphorus Level 4.0, Magnesium Level 2.1, Triglycerides Level 224H Microbiology 01/13/19 Blood Culture - Final, Complete No growth 01/17/19 Gram Stain - Final, Resulted 01/17/19 Sputum Culture - Preliminary, Resulted YEAST A/P: Assessment/Dx: Non-STEMI, Acute systolic congestive heart failure, Persistent atrial fibrillation with rapid ventricular rate, Possible right axillary DVT, Severe respiratory failure, hypercarbic Severe COPD, Possible pneumonia, COPD exacerbation, Acute kidney injury, Plan: Non-STEMI, continue aspirin, Brilinta and Lovenox. Lipitor. Improving troponin. Coronary angiography done yesterday with severe mid left circumflex artery stenosis. Stenosis severity 70-80 percent. PCI with single drug- eluting stent done. Patient doing well post-PCI. Continue Brilinta. Possibility of right axillary DVT. Lovenox. Atrial fibrillation with rapid ventricular response, consider changing Lovenox to Eliquis which will cover right axillary DVT as well. Acute systolic congestive heart failure, improved significantly. Elevated BNP. Echocardiogram done 01/13/2019 shows an EF of 30-35 percent. Dilated LV with mild pulmonary hypertension. Improved LV function on left heart catheterization done yesterday had 01/18/2019. Severe respiratory failure, hypercarbic, likely multifactorial due to acute systolic congestive heart failure, severe COPD, influenza. Defer to Dr. Wall. Severe COPD, Possible pneumonia, COPD exacerbation, Acute kidney injury, improving gradually. Likely underlying chronic kidney disease. Critically ill patient. Thank you for your consultation. Please call me if you have any questions. Cynthia Chatman MD, FACP, FACC, FSCAI, FHRS, CCDS Interventional Cardiology Cardiac Electrophysiology Vascular Medicine and Endovascular Interventions Focused Exam Lactate Level 01/16/19 21:32: Lactic Acid Level 0.68 01/18/19 07:30: Lactic Acid Level 0.81 Viji CHATMAN MD Jan 19, 2019 10:02 am
--- NOTE | 2019-01-19 10:03 | Progress Note-Hospitalist ---
Subjective HPI/CC On Admission Date Seen by Provider: Jan 19, 2019 Time Seen by Provider: 09:45 Subjective/Events-last exam Pt maintains intubation Checked meds and labs Overall poor prognosis continues Will be very debilitated once extubated if able to do that Focused Exam Lactate Level 01/16/19 21:32: Lactic Acid Level 0.68 01/18/19 07:30: Lactic Acid Level 0.81 Objective Exam Vital Signs Vital Signs Date Time Temp Pulse Resp B/P (MAP) Pulse Ox O2 Delivery O2 Flow Rate FiO2 01/19/19 18:30 121/84 01/19/19 18:00 101 10 95 Mechanical Ventilator 30.00 01/19/19 16:06 30 01/19/19 15:46 97.2 Capillary Refill : Less Than 3 Seconds General Appearance: No Apparent Distress, Chronically ill, Other (intubated, sedated) HEENT: Other (ETT in place) Respiratory: Chest Non Tender, No Accessory Muscle Use, No Respiratory Distress , Decreased Breath Sounds, Wheezing (faint) Cardiovascular: Regular Rate, Rhythm, No Edema, No Murmur, Normal Peripheral Pulses Gastrointestinal: Normal Bowel Sounds, No Organomegaly, Soft Extremity: Normal Capillary Refill, Swelling (both arms) Skin: Ecchymosis (left forearm) Lymphatic: No Adenopathy Results/Procedures Lab Laboratory Tests 01/19/19 03:06 Patient resulted labs reviewed. Assessment/Plan Assessment and Plan Assess & Plan/Chief Complaint Assessment: [facility] Day # 2 Critically ill status Confusion due to metabolic encephalopathy Plan: ICU USG left arm negative Very complex case Intubation Critical Care Critically Ill Patient Diagnosis/Problems Diagnosis/Problems (1) Ventilator dependence Status: Acute (2) Atrial fibrillation with rapid ventricular response Status: Acute (3) COPD exacerbation Status: Acute (4) Chronic kidney disease Status: Chronic Qualifiers: Chronic kidney disease stage: stage 3 (moderate) Qualified Codes: N18.3 - Chronic kidney disease, stage 3 (moderate) (5) Influenza B Status: Acute (6) Chronic pain Status: Chronic Qualifiers: Chronic pain type: chronic pain syndrome Qualified Codes: G89.4 - Chronic pain syndrome (7) Acute and chronic respiratory failure Status: Acute (8) Hypertension Status: Chronic Qualifiers: Hypertension type: essential hypertension Qualified Codes: I10 - Essential (primary) hypertension (9) Anxiety Status: Chronic (10) NSTEMI (non-ST elevated myocardial infarction) Status: Acute (11) Pneumonia Status: Acute Qualifiers: Pneumonia type: due to unspecified organism Laterality: unspecified laterality Lung location: unspecified part of lung Qualified Codes: J18.9 - Pneumonia, unspecified organism (12) COPD (chronic obstructive pulmonary disease) Status: Acute Qualifiers: COPD type: COPD with acute lower respiratory infection Qualified Codes: J44.0 - Chronic obstructive pulmonary disease with acute lower respiratory infection (13) DVT prophylaxis Status: Acute (14) Pain and swelling of left upper extremity Status: Acute (15) Confusion Status: Acute (16) Respiratory failure Status: Acute Qualifiers: Chronicity: acute on chronic Respiratory failure complication: unspecified whether with hypoxia or hypercapnia Qualified Codes: J96.20 - Acute and chronic respiratory failure, unspecified whether with hypoxia or hypercapnia Clinical Quality Measures DVT/VTE Risk/Contraindication: Risk Factor Score Per Nursin RFS Level Per Nursing on Admit: 4+=Very High YANET JAIMES DO Jan 19, 2019 10:03
[2019-01-19] MEDS ORDERED: NS IV 500 ML 500 ML IV ONE (11:15)
--- NOTE | 2019-01-19 13:00 | NUR ---
PULMOCARE STARTED AT 30ML/HR PER DR STALEY
[2019-01-19] MEDS ORDERED: POTASSIUM PHOSPHATE INJ 30 MM in NS (IVPB) 250 ML IV ONE (15:15)
[2019-01-19] MEDS: ATORVASTATIN 40 MG (LIPITOR) TABLET PO SCH (21:39)
[2019-01-20] VITALS (32 sets, daily range): BP systolic 111–163; BP diastolic 64–105
[2019-01-20] MEDS: inSUlin ASPART (NovoLOG) 1 UNIT/0.01 ML (CHARGE PER UNIT) SQ PRN ×2 (01:02→05:50)
[2019-01-20] MEDS: RT-ALBUTEROL/IPRATROPIUM 3 ML (DUONEB) VIAL INH SCH ×6 (02:20→22:25)
[2019-01-20 03:50] LABS: BASOPHILS % (AUTO) 0 % (0-10); EOSINOPHILS % (AUTO) 0 % (0-10); HEMATOCRIT 23 % (40-54); HEMOGLOBIN 7.7 G/DL (13.3-17.7); LYMPHOCYTES # (AUTO) 0.2 X 10^3 (1.0-4.0); LYMPHOCYTES % (AUTO) 1 % (12-44); MEAN CORPUSCULAR HEMOGLOBIN 29 PG (25-34); MEAN CORPUSCULAR HGB CONC 33 G/DL (32-36); MEAN CORPUSCULAR VOLUME 88 FL (80-99); MEAN PLATELET VOLUME 11.1 FL (7.4-10.4); MONOCYTES % (AUTO) 4 % (0-12); NEUTROPHILS # (AUTO) 27.1 X 10^3 (1.8-7.8); NEUTROPHILS % (AUTO) 96 % (42-75); PLATELET COUNT 181 10^3/uL (130-400); RED CELL DISTRIBUTION WIDTH 15.1 % (10.0-14.5); WHITE BLOOD COUNT 28.3 10^3/uL (4.3-11.0)
[2019-01-20 03:59] LABS: ABG BASE EXCESS -4.3 MMOL/L (-2.5-2.5); ABG OXYGEN SATURATION 99 % (94-100); ABG PCO2 41 MMHG (35-45); ABG PO2 110 MMHG (79-93)
[2019-01-20 04:00] LABS: ALLENS TEST YES-POS; INSPIRED O2 50%; PATIENT TEMP 97.8; VENTILATOR YES
[2019-01-20 04:01] LABS: ABG PH 7.33 (7.37-7.43)
[2019-01-20 04:13] LABS: CALCIUM 7.6 MG/DL (8.5-10.1); CREATININE SERUM 1.81 MG/DL (0.60-1.30); PHOSPHORUS 3.8 MG/DL (2.3-4.7); POTASSIUM 3.6 MMOL/L (3.6-5.0)
[2019-01-20] MEDS: NS IV 1000 ML 1,000 ML IV SCH (04:28)
[2019-01-20] MEDS: methylPREDNISolone 40 MG/ML (Solu-MEDROL) VIAL IV SCH ×4 (04:28→23:17)
[2019-01-20] MEDS: PROPOFOL DRIP (ICU) 100 ML IV SCH ×5 (04:29→21:55)
[2019-01-20] MEDS: DILTIAZEM 125 MG/NS 100 ML IV SCH ×6 (04:29→21:56)
[2019-01-20] MEDS: DEXMEDETOMIDINE INJECTION 1,000 MCG in NS (IVPB) 250 ML IV SCH ×3 (04:30→21:56)
[2019-01-20] MEDS: POTASSIUM CL 10MEQ/50ML IVPB 50 ML IV SCH ×3 (04:33→04:37)
[2019-01-20] MEDS: MAGNESIUM 1 GM/100 ML IVPB 100 ML IV SCH (04:33)
[2019-01-20] MEDS: KCL 20 MEQ TAB (K-DUR) PO SCH (04:33)
[2019-01-20] MEDS: inSUlin ASPART (NovoLOG) 1 UNIT/0.01 ML (CHARGE PER UNIT) SQ SCH ×4 (06:14→23:53)
[2019-01-20] MEDS ORDERED: inSUlin ASPART (NovoLOG) 1 UNIT/0.01 ML (CHARGE PER UNIT) SQ SCH (06:15)
[2019-01-20] MEDS: RT-BUDESONIDE NEBS 0.5 MG/2ML (PULMICORT) AMP INH SCH ×2 (06:36→19:59)
--- NOTE | 2019-01-20 06:48 | NUR ---
Due to O2 sat of 94% on 50% RT tried to decrease O2 to 40% but patient kept desatting so RT turned the O2 back to the previous 50%! RT will continue to try and titrate O2.
[2019-01-20] MEDS ORDERED: BUMETANIDE 1 MG/4 ML (BUMEX) VIAL IV NR (07:00)
--- NOTE | 2019-01-20 07:01 | Pulmonary Progress Note ---
Subjective Time Seen by a Provider: 07:00 Subjective/Events-last exam Pt is sedated on vent Sepsis Event Evaluation Height, Weight, BMI Height: 5'10.00" Weight: 201lbs. 0.0oz. 91.689598cx; 23.0 BMI Method:Stated Focused Exam Lactate Level 01/18/19 07:30: Lactic Acid Level 0.81 Exam Exam Vital Signs Date Time Temp Pulse Resp B/P (MAP) Pulse Ox O2 Delivery O2 Flow Rate FiO2 01/20/19 06:46 92 Mechanical Ventilator 40 01/20/19 06:37 87 22 94 50 01/20/19 06:00 80 13 130/82 (98) 93 Mechanical Ventilator 50.00 01/20/19 05:00 81 12 119/81 (94) 95 Mechanical Ventilator 50.00 01/20/19 04:29 87 135/80 01/20/19 04:00 98.7 01/20/19 04:00 87 10 129/70 (89) 96 Mechanical Ventilator 50.00 01/20/19 04:00 Mechanical Ventilator 50 01/20/19 03:00 112 20 123/88 (100) 92 Mechanical Ventilator 50.00 01/20/19 02:23 Mechanical Ventilator 50.00 01/20/19 02:20 105 23 97 50 01/20/19 02:00 94 11 134/74 (94) 97 Mechanical Ventilator 60.00 01/20/19 01:00 90 12 139/90 (106) 96 Mechanical Ventilator 60.00 01/20/19 01:00 87 01/20/19 00:00 94 11 131/79 (96) 95 Mechanical Ventilator 60.00 01/20/19 00:00 97.5 01/20/19 00:00 Mechanical Ventilator 30 01/19/19 23:45 94 26 94 60 01/19/19 23:02 93 104/69 01/19/19 23:00 93 15 107/69 (82) 92 Mechanical Ventilator 30.00 01/19/19 22:44 101 23 92 30 01/19/19 22:00 112 13 119/71 (87) 92 Mechanical Ventilator 30.00 01/19/19 21:00 102 11 113/92 (99) 92 Mechanical Ventilator 30.00 01/19/19 20:45 92 23 93 30 01/19/19 20:00 98.2 01/19/19 20:00 Mechanical Ventilator 30 01/19/19 20:00 111 14 123/75 (91) 91 Mechanical Ventilator 30.00 01/19/19 19:00 93 11 122/86 (98) 93 Mechanical Ventilator 30.00 01/19/19 19:00 93 01/19/19 18:55 92 22 93 30 01/19/19 18:30 121/84 01/19/19 18:00 101 10 146/69 (94) 95 Mechanical Ventilator 30.00 01/19/19 17:00 109 19 130/80 (97) 94 Mechanical Ventilator 30.00 01/19/19 16:06 Mechanical Ventilator 30 01/19/19 16:00 109 15 105/77 (86) 94 Mechanical Ventilator 30.00 01/19/19 15:46 97.2 01/19/19 15:00 104 11 125/77 (93) 94 Mechanical Ventilator 30.00 01/19/19 14:39 96 24 95 30 01/19/19 14:00 99 13 131/81 (98) 94 Mechanical Ventilator 30.00 01/19/19 13:53 96.8 95 14 124/69 93 Mechanical Ventilator 30 01/19/19 13:50 122/80 01/19/19 13:00 111 10 127/83 (98) 94 Mechanical Ventilator 30.00 01/19/19 13:00 111 01/19/19 12:00 118 14 111/77 (88) 93 Mechanical Ventilator 30.00 01/19/19 11:45 97.4 112 14 116/71 93 Mechanical Ventilator 30 01/19/19 11:32 94 Mechanical Ventilator 30 01/19/19 11:32 96.6 01/19/19 11:31 118 26 92 30 01/19/19 11:23 96.6 118 15 115/73 93 Mechanical Ventilator 30 01/19/19 11:00 117 13 110/74 (86) 93 Mechanical Ventilator 30.00 01/19/19 10:00 112 16 123/80 (94) 92 Mechanical Ventilator 30.00 01/19/19 09:54 142/83 01/19/19 09:00 112 12 116/82 (93) 96 Mechanical Ventilator 30.00 01/19/19 08:48 97.6 01/19/19 08:00 112 10 111/69 (83) 95 Mechanical Ventilator 30.00 01/19/19 08:00 94 Mechanical Ventilator 30 01/19/19 07:02 101 24 95 30 01/19/19 07:00 89 01/19/19 07:00 103 12 125/68 (87) 96 Mechanical Ventilator 30.00 I & O 01/20/19 07:00 Intake Total 4382 ml Output Total 1775 ml Balance 2607 ml Height & Weight Height: 5'10.00" Weight: 201lbs. 0.0oz. 91.904310gk; 23.0 BMI Method:Stated General Appearance: No Apparent Distress, Chronically ill, Other (intubated, sedated) HEENT: Other (ETT in place) Respiratory: Chest Non Tender, No Accessory Muscle Use, No Respiratory Distress , Decreased Breath Sounds, Wheezing (faint) Cardiovascular: Regular Rate, Rhythm, No Edema, No Murmur, Normal Peripheral Pulses Capillary Refill: Less Than 3 Seconds Gastrointestinal: normal bowel sounds, non tender, soft Extremity: Normal Capillary Refill, Swelling (both arms) Skin: Ecchymosis (left forearm) Lymphatic: No Adenopathy Results Lab Laboratory Tests 01/18/19 07:30 01/19/19 03:06 01/20/19 03:40 Assessment/Plan Assessment/Plan Acute respiratory failure- with worsening SOB -sedated on vent -Not ready to wean yet -SVNs Q4 -Cefepime, diflucan -Continue TF -solumedrol 40 Q6 Volume overload -Will give Bumex 2mg IV x 1 and decrease IVF to KVO Bilateral UE edema -Doppler of LUE questions axillary nonocclusive DVT -Continue Lovenox at therapeutic dose and monitor Hb. Anemia - monitor -Transfuse 1 unit PRBC -Check occult stool Hypotension - improved -D/c Norvasc -D/C Metoprolol -Wean Levophed to D/c as tolerated Systolic CHF -Cautious IVF ARF Acute on chronic renal failure - IVF -Monitor Metabolic acidosis -Check LA AFIB RVR - Cardizem -Cardiology following -Dr. Chatman is planning heart cath today Anemia -Monitor Influenza B - s/p treatment LUE pain edema - -Dr. Arias following [facility]- 30-35% -Monitor -give bumex 2mg IV x 1 Hx of severe oxygen dependent COPD -SVNS, oxygen Metabolic encephalopathy - -Monitor -respiradol -Morphine, Leukocytosis- Probably secondary to out pt steroids - No fever -Continue Cefepime NSTEMI -BNP is high however he has renal failure -Cardiology consulted -Possible cath today -lovenox COPDAE/asthmaAE - pt does use 3liters at home. currently using 35% via BiPAP -Solumedrol then 40 Q6 -SVNS Q4, add pulmicort BID Chronic renal failure -Monitor -IVF ALEXANDER CHIU DO Jan 20, 2019 07:01
[2019-01-20] MEDS ORDERED: SODIUM BICARB 8.4% 50 MEQ/50 ML (ABBOTT) SYR IV NR (08:00)
--- NOTE | 2019-01-20 08:21 | Diagnostic Imaging Report ---
Indication: COPD and heart disease. Comparison made with prior examination from 01/19/2019. Findings: There's cardiomegaly. ET, NG and PICC line are in satisfactory position. There is no pleural effusion, pneumothorax or pneumonia. The mediastinum is unremarkable. IMPRESSION: Unchanged cardiomegaly, otherwise stable appearance of the chest. Dictated by: Dictated on workstation # [id number]
--- NOTE | 2019-01-20 08:33 | Progress Note-Hospitalist ---
Subjective HPI/CC On Admission Date Seen by Provider: Jan 20, 2019 Time Seen by Provider: 08:10 Subjective/Events-last exam Remains intubated Hemoglobin stable at 7.7 Hemoccult stool is ordered Bumex is being given on a scheduled basis now Reviewed pulmonology notes Reviewed labs and meds Focused Exam Lactate Level 01/18/19 07:30: Lactic Acid Level 0.81 Objective Exam Vital Signs Vital Signs Date Time Temp Pulse Resp B/P (MAP) Pulse Ox O2 Delivery O2 Flow Rate FiO2 01/20/19 16:00 96 Mechanical Ventilator 50 01/20/19 16:00 98 7 135/88 (104) 50.00 01/20/19 15:40 97.4 Capillary Refill : Less Than 3 Seconds General Appearance: No Apparent Distress, Chronically ill, Other (intubated, sedated) HEENT: Other (ETT in place) Respiratory: Chest Non Tender, No Accessory Muscle Use, No Respiratory Distress , Decreased Breath Sounds, Wheezing (faint) Cardiovascular: Regular Rate, Rhythm, No Edema, No Murmur, Normal Peripheral Pulses Gastrointestinal: Normal Bowel Sounds, No Organomegaly, Soft Extremity: Normal Capillary Refill, Swelling (both arms) Skin: Ecchymosis (left forearm) Lymphatic: No Adenopathy Results/Procedures Lab Laboratory Tests 01/20/19 03:40 Patient resulted labs reviewed. Assessment/Plan Assessment and Plan Assess & Plan/Chief Complaint Assessment: [facility] Day # 4 Critically ill status Confusion due to metabolic encephalopathy Plan: ICU USG left arm negative Very complex case Intubation Critical Care Critically Ill Patient Diagnosis/Problems Diagnosis/Problems (1) Ventilator dependence Status: Acute (2) Atrial fibrillation with rapid ventricular response Status: Acute (3) COPD exacerbation Status: Acute (4) Chronic kidney disease Status: Chronic Qualifiers: Chronic kidney disease stage: stage 3 (moderate) Qualified Codes: N18.3 - Chronic kidney disease, stage 3 (moderate) (5) Influenza B Status: Acute (6) Chronic pain Status: Chronic Qualifiers: Chronic pain type: chronic pain syndrome Qualified Codes: G89.4 - Chronic pain syndrome (7) Acute and chronic respiratory failure Status: Acute (8) Hypertension Status: Chronic Qualifiers: Hypertension type: essential hypertension Qualified Codes: I10 - Essential (primary) hypertension (9) Anxiety Status: Chronic (10) NSTEMI (non-ST elevated myocardial infarction) Status: Acute (11) Pneumonia Status: Acute Qualifiers: Pneumonia type: due to unspecified organism Laterality: unspecified laterality Lung location: unspecified part of lung Qualified Codes: J18.9 - Pneumonia, unspecified organism (12) COPD (chronic obstructive pulmonary disease) Status: Acute Qualifiers: COPD type: COPD with acute lower respiratory infection Qualified Codes: J44.0 - Chronic obstructive pulmonary disease with acute lower respiratory infection (13) DVT prophylaxis Status: Acute (14) Pain and swelling of left upper extremity Status: Acute (15) Confusion Status: Acute (16) Respiratory failure Status: Acute Qualifiers: Chronicity: acute on chronic Respiratory failure complication: unspecified whether with hypoxia or hypercapnia Qualified Codes: J96.20 - Acute and chronic respiratory failure, unspecified whether with hypoxia or hypercapnia Clinical Quality Measures DVT/VTE Risk/Contraindication: Risk Factor Score Per Nursin RFS Level Per Nursing on Admit: 4+=Very High YANET JAIMES DO Jan 20, 2019 08:33
[2019-01-20] MEDS: CEFEPIME INJECTION 2,000 MG in WATER (STERILE) FOR INJECTION 20 ML IV SCH (09:04)
[2019-01-20] MEDS: PANTOPRAZOLE 40 MG (PROTONIX) VIAL IV SCH (09:04)
[2019-01-20] MEDS: ASPIRIN E.C. 81 MG (ECOTRIN) TAB PO SCH (09:05)
[2019-01-20] MEDS: ENOXAPARIN 100 MG/1 ML (LOVENOX) SYR SC SCH (09:05)
[2019-01-20] MEDS: risperiDONE 0.25 MG (RisperDAL) TAB PO SCH ×2 (09:05→20:26)
[2019-01-20] MEDS: TICAGRELOR 90 MG TABLET (BRILINTA) PO SCH ×2 (09:05→20:26)
[2019-01-20] MEDS: FLUCONAZOLE 200 MG/100 ML 50 ML, EMPTY IV BAG (PVC) 1 EA IV SCH ×2 (09:10)
--- NOTE | 2019-01-20 14:30 | Progress Note-Cardiology ---
Cardiology SOAP Progress Note Subjective: Intubated, on mech vent. Unable to provide any history Objective: I&O/Vital Signs 01/20/19 01/20/19 01/20/19 01/20/19 03:00 04:00 04:00 04:00 Temp 98.7 Pulse 112 87 Resp 20 10 B/P (MAP) 123/88 (100) 129/70 (89) Pulse Ox 92 96 O2 Delivery Mechanical Ventilator Mechanical Ventilator Mechanical Ventilator O2 Flow Rate 50.00 50.00 FiO2 50 01/20/19 01/20/19 01/20/19 01/20/19 04:29 05:00 06:00 06:37 Pulse 87 81 80 87 Resp 12 13 22 B/P (MAP) 135/80 119/81 (94) 130/82 (98) Pulse Ox 95 93 94 O2 Delivery Mechanical Ventilator Mechanical Ventilator O2 Flow Rate 50.00 50.00 FiO2 50 01/20/19 01/20/19 01/20/19 01/20/19 06:46 07:00 07:00 08:00 Pulse 98 102 103 Resp 13 11 B/P (MAP) 144/68 (93) 127/80 (96) Pulse Ox 92 93 90 O2 Delivery Mechanical Ventilator Mechanical Ventilator Mechanical Ventilator O2 Flow Rate 50.00 50.00 FiO2 40 01/20/19 01/20/19 01/20/19 01/20/19 08:00 08:30 08:39 08:55 Temp 97.6 Pulse 101 92 Resp 23 14 B/P (MAP) 104/81 Pulse Ox 94 90 O2 Delivery Mechanical Ventilator Mechanical Ventilator FiO2 50 50 01/20/19 01/20/19 01/20/19 01/20/19 09:00 10:00 10:34 11:00 Pulse 101 105 103 107 Resp 15 08 21 19 B/P (MAP) 132/85 (101) 151/75 (100) 163/95 (117) Pulse Ox 88 85 96 90 O2 Delivery Mechanical Ventilator Mechanical Ventilator Mechanical Ventilator O2 Flow Rate 50.00 50.00 50.00 FiO2 50 01/20/19 01/20/19 01/20/19 01/20/19 11:30 12:00 12:00 12:54 Temp 98.0 Pulse 112 Resp 10 B/P (MAP) 142/105 (117) 112/62 Pulse Ox 96 96 O2 Delivery Mechanical Ventilator Mechanical Ventilator O2 Flow Rate 50.00 FiO2 50 01/20/19 01/20/19 01/20/19 13:00 13:00 14:09 Pulse 105 112 96 Resp 8 26 B/P (MAP) 130/77 (94) Pulse Ox 94 96 O2 Delivery Mechanical Ventilator O2 Flow Rate 50.00 FiO2 50 01/20/19 00:00 Intake Total 1549 ml Output Total 900 ml Balance 649 ml Weight (Pounds): 201 Weight (Ounces): 0.0 Weight (Calculated Kilograms): 91.109539 Constitutional: other (intubated/ventilated.) Respiratory: chest is bilaterally symmetric, other (good bilat air entry, diminished at the bases, basal coarse crackles) Cardiovascular: irregularly irregular, S1 and S2, systolic murmur (soft GRATH at card base) Gastrointestional: soft; No guarding, No rebound; audible bowel sounds, other ( large amount of bruising at Lovenox injection sites and slow bleeding from injections sites) Extremities: other (large amount of bruising at in both arms and forearms, considerable swelling, and slow bleeding from injections sites) Neurologic/Psychiatric: other (intubated/ventilated.) Skin: other (see under GI and Extremities exam) Results/Procedures: Labs Laboratory Tests 01/19/19 17:55: Glucometer 187H 01/20/19 00:59: Glucometer 205H 01/20/19 03:40: White Blood Count 28.3H, Red Blood Count 2.62L, Hemoglobin 7.7L, Hematocrit 23L , Mean Corpuscular Volume 88, Mean Corpuscular Hemoglobin 29, Mean Corpuscular Hemoglobin Concent 33, Red Cell Distribution Width 15.1H, Platelet Count 181, Mean Platelet Volume 11.1H, Neutrophils (%) (Auto) 96H, Lymphocytes (%) (Auto) 1L, Monocytes (%) (Auto) 4, Eosinophils (%) (Auto) 0, Basophils (%) (Auto) 0, Neutrophils # (Auto) 27.1H, Lymphocytes # (Auto) 0.2L, Monocytes # (Auto) 1.0, Eosinophils # (Auto) 0.0, Basophils # (Auto) 0.0, Blood Gas Puncture Site R RAD , Blood Gas Patient Temperature 97.8, Arterial Blood pH 7.33*L, Arterial Blood Partial Pressure CO2 41, Arterial Blood Partial Pressure O2 110H, Arterial Blood HCO3 21L, Arterial Blood Total CO2 22.0, Arterial Blood Oxygen Saturation 99, Arterial Blood Base Excess -4.3L, Siva Test YES-POS, Blood Gas Ventilator Setting YES, Blood Gas Inspired Oxygen 50%, Sodium Level 144, Potassium Level 3.6, Chloride Level 116H, Carbon Dioxide Level 18L, Anion Gap 10, Blood Urea Nitrogen 51H, Creatinine 1.81H, Estimat Glomerular Filtration Rate 38, BUN/ Creatinine Ratio 28, Glucose Level 159H, Calcium Level 7.6L, Phosphorus Level 3.8, Magnesium Level 2.0 01/20/19 12:02: Glucometer 244H Microbiology 01/13/19 Blood Culture - Final, Complete No growth 01/17/19 Gram Stain - Final, Complete 01/17/19 Sputum Culture - Final, Complete YEAST Laboratory Tests 01/19/19 03:06 01/20/19 03:40 A/P: Assessment: Type 2 resp failure, likely multifactorial (see below) Acute systolic CHF. LVEF 30-35% on echo of 01/13/19 and 45% on card cath of COPD exacerbated by Influenza B CAD. Non-STEMI treated with BILL to mid left circumflex artery on 01/18/19 Clinical bleeding diathesis (marked bruising, tense edema and slow bleeding at injection sites in abd wall and upper limbs) likely contributing to patient's marked anemia that is requiring blood transfusions. Bleeding diathesis likely due to ticagrelor plus aspirin plus high-dose enoxaparin combination Possibility of small, non-occlusive thrombosis in R axillary vein, the site of PICC line, on u/s of 01/17/19 PAF Renal failure of unknown chronicity, probably acute, eGFR 34 on 01/12 and 38 on 01/20/19 Physician Assessment Physician Assessment * I reviewed his records and examined him * Very complex management due to multisystem involvement. Critically ill. Prognosis guarded * Given his clinical bleeding diathesis (see exam above) and marked anemia requiring blood transfusions, we recommend that enoxaparin be changed from high- dose to [id number] * Continue DAPT * Monitor labs * Use diuretics as needed and as tolerated FLASH MCCLAIN MD FACP FAC CCDS Jan 20, 2019 14:29
[2019-01-20] MEDS: ATORVASTATIN 40 MG (LIPITOR) TABLET PO SCH (20:26)
[2019-01-21] VITALS (32 sets, daily range): BP systolic 104–147; BP diastolic 60–82
[2019-01-21] MEDS: RT-ALBUTEROL/IPRATROPIUM 3 ML (DUONEB) VIAL INH SCH ×6 (02:22→22:10)
[2019-01-21] MEDS: PROPOFOL DRIP (ICU) 100 ML IV SCH ×5 (02:31→20:53)
[2019-01-21 03:54] LABS: ABG BASE EXCESS -2.8 MMOL/L (-2.5-2.5); ABG OXYGEN SATURATION 94 % (94-100); ABG PCO2 45 MMHG (35-45); ABG PO2 66 MMHG (79-93); ABG TCO2 24.1 MMOL/L (21.0-31.0)
[2019-01-21 03:55] LABS: BASOPHILS % (AUTO) 0 % (0-10); EOSINOPHILS % (AUTO) 0 % (0-10); HEMATOCRIT 23 % (40-54); HEMOGLOBIN 7.6 G/DL (13.3-17.7); LYMPHOCYTES # (AUTO) 0.4 X 10^3 (1.0-4.0); LYMPHOCYTES % (AUTO) 1 % (12-44); MEAN CORPUSCULAR HEMOGLOBIN 30 PG (25-34); MEAN CORPUSCULAR HGB CONC 33 G/DL (32-36); MEAN CORPUSCULAR VOLUME 90 FL (80-99); MEAN PLATELET VOLUME 11.4 FL (7.4-10.4); MONOCYTES # (AUTO) 0.8 X 10^3 (0.0-1.0); MONOCYTES % (AUTO) 2 % (0-12); NEUTROPHILS # (AUTO) 31.9 X 10^3 (1.8-7.8); NEUTROPHILS % (AUTO) 96 % (42-75); PLATELET COUNT 186 10^3/uL (130-400); RED CELL DISTRIBUTION WIDTH 15.4 % (10.0-14.5)
[2019-01-21 03:56] LABS: ALLENS TEST YES-POS; INSPIRED O2 50%; PATIENT TEMP 96.4; VENTILATOR YES
[2019-01-21 03:59] LABS: ABG PH 7.32 (7.37-7.43); WHITE BLOOD COUNT 33.1 10^3/uL (4.3-11.0)
[2019-01-21 04:17] LABS: CALCIUM 7.7 MG/DL (8.5-10.1); CREATININE SERUM 1.95 MG/DL (0.60-1.30); MAGNESIUM 2.4 MG/DL (1.8-2.4); PHOSPHORUS 4.2 MG/DL (2.3-4.7); POTASSIUM 4.3 MMOL/L (3.6-5.0)
--- NOTE | 2019-01-21 06:29 | Pulmonary Progress Note ---
Subjective Time Seen by a Provider: 06:51 Subjective/Events-last exam Pt is sedated on vent. Sepsis Event Evaluation Height, Weight, BMI Height: 5'10.00" Weight: 201lbs. 0.0oz. 91.953304ud; 23.0 BMI Method:Stated Focused Exam Lactate Level 01/18/19 07:30: Lactic Acid Level 0.81 Exam Exam Vital Signs Date Time Temp Pulse Resp B/P (MAP) Pulse Ox O2 Delivery O2 Flow Rate FiO2 01/21/19 05:00 75 12 136/64 (88) 97 Mechanical Ventilator 50.00 01/21/19 04:11 84 23 95 50 01/21/19 04:00 96.4 01/21/19 04:00 80 12 104/69 (81) 96 Mechanical Ventilator 50.00 01/21/19 04:00 96 Mechanical Ventilator 50 01/21/19 03:00 78 11 120/72 (88) 94 Mechanical Ventilator 50.00 01/21/19 02:31 95 01/21/19 02:22 72 22 90 50 01/21/19 02:00 71 11 125/68 (87) 90 Mechanical Ventilator 50.00 01/21/19 01:00 77 10 115/71 (86) 98 Mechanical Ventilator 50.00 01/21/19 01:00 85 01/21/19 00:32 79 22 96 50 01/21/19 00:00 96.9 01/21/19 00:00 83 12 136/70 (92) 94 Mechanical Ventilator 50.00 01/21/19 00:00 96 Mechanical Ventilator 50 01/20/19 23:00 81 12 119/65 (83) 95 Mechanical Ventilator 50.00 01/20/19 22:25 80 26 97 50 01/20/19 22:00 87 18 127/74 (91) 97 Mechanical Ventilator 50.00 01/20/19 21:55 100 111/75 01/20/19 21:00 79 10 145/70 (95) 98 Mechanical Ventilator 50.00 01/20/19 20:00 86 10 129/76 (93) 98 Mechanical Ventilator 50.00 01/20/19 20:00 96 Mechanical Ventilator 50 01/20/19 19:59 87 25 98 50 01/20/19 19:50 97.8 01/20/19 19:02 85 24 97 50 01/20/19 19:00 101 01/20/19 19:00 90 12 113/71 (85) 97 Mechanical Ventilator 50.00 01/20/19 18:16 97 14 145/73 (97) 96 Mechanical Ventilator 50.00 01/20/19 17:50 98 17 134/80 01/20/19 17:00 84 13 134/78 (96) 87 Mechanical Ventilator 50.00 01/20/19 16:00 96 Mechanical Ventilator 50 01/20/19 16:00 98 7 135/88 (104) 94 Mechanical Ventilator 50.00 01/20/19 15:40 97.4 01/20/19 15:00 89 9 138/98 (111) 96 Mechanical Ventilator 50.00 01/20/19 14:09 96 26 96 50 01/20/19 14:00 100 8 116/74 (88) 92 Mechanical Ventilator 50.00 01/20/19 13:00 112 01/20/19 13:00 105 8 130/77 (94) 94 Mechanical Ventilator 50.00 01/20/19 12:54 112/62 01/20/19 12:00 96 Mechanical Ventilator 50 01/20/19 12:00 112 10 142/105 (117) 96 Mechanical Ventilator 50.00 01/20/19 11:30 98.0 01/20/19 11:00 107 19 163/95 (117) 90 Mechanical Ventilator 50.00 01/20/19 10:34 103 26 96 50 01/20/19 10:00 105 11 151/75 (100) 85 Mechanical Ventilator 50.00 01/20/19 09:00 101 15 132/85 (101) 88 Mechanical Ventilator 50.00 01/20/19 08:55 92 14 104/81 Mechanical Ventilator 01/20/19 08:39 101 23 90 50 01/20/19 08:30 97.6 01/20/19 08:00 94 Mechanical Ventilator 50 01/20/19 08:00 103 11 127/80 (96) 90 Mechanical Ventilator 50.00 01/20/19 07:00 102 01/20/19 07:00 98 13 144/68 (93) 93 Mechanical Ventilator 50.00 01/20/19 06:46 92 Mechanical Ventilator 40 01/20/19 06:37 87 22 94 50 I & O 01/21/19 07:00 Intake Total 1135 ml Output Total 1825 ml Balance -690 ml Height & Weight Height: 5'10.00" Weight: 201lbs. 0.0oz. 91.785562am; 23.0 BMI Method:Stated General Appearance: No Apparent Distress, Chronically ill, Other (intubated, sedated) HEENT: Other (ETT in place) Respiratory: Chest Non Tender, No Accessory Muscle Use, No Respiratory Distress , Decreased Breath Sounds, Wheezing (faint) Cardiovascular: Regular Rate, Rhythm, No Edema, No Murmur, Normal Peripheral Pulses Capillary Refill: Less Than 3 Seconds Gastrointestinal: normal bowel sounds, non tender, soft Extremity: Normal Capillary Refill, Swelling (both arms) Skin: Ecchymosis (left forearm) Lymphatic: No Adenopathy Results Lab Laboratory Tests 01/20/19 03:40 01/21/19 03:45 Assessment/Plan Assessment/Plan Acute respiratory failure- with worsening SOB -sedated on vent -Not ready to wean yet -SVNs Q4 -Cefepime, diflucan -Continue TF -solumedrol 40 Q6 Hypernatremia -Change IVF to 1/2 NS at 50cc/hr -250cc of free water per OG Q 6 Bilateral UE edema -Doppler of LUE questions axillary nonocclusive DVT - Lovenox decreased to PPX dose per cardiology. Anemia - monitor -Check occult stool -S/p transfusion 1 unit last week Hypotension - improved -D/c Norvasc -D/C Metoprolol -Wean Levophed to D/c as tolerated Systolic CHF -Cautious IVF ARF Acute on chronic renal failure - IVF -Monitor Metabolic acidosis -Check LA AFIB RVR - Cardizem -Cardiology following -Dr. Chatman is planning heart cath today Anemia -Monitor Influenza B - s/p treatment LUE pain edema - -Dr. Arias following [facility]- 30-35% -Monitor Hx of severe oxygen dependent COPD -SVNS, oxygen Metabolic encephalopathy - -Monitor -respiradol -Morphine, Leukocytosis- Probably secondary to out pt steroids - No fever -Continue Cefepime NSTEMI s/p cath with stent placement -Cardiology consulted -lovenox COPDAE/asthmaAE - pt does use 3liters at home. currently using 35% via BiPAP -Solumedrol then 40 Q6 -SVNS Q4, add pulmicort BID Chronic renal failure -Monitor -IVF Prognosis is guarded to poor. ALEXANDER CHIU DO Jan 21, 2019 06:29
[2019-01-21] MEDS ORDERED: 1/2 NS IV SOLUTION 1,000 ML IV ONE (06:43)
[2019-01-21] MEDS: RT-BUDESONIDE NEBS 0.5 MG/2ML (PULMICORT) AMP INH SCH ×2 (06:53→18:43)
[2019-01-21] MEDS: DEXMEDETOMIDINE INJECTION 1,000 MCG in NS (IVPB) 250 ML IV SCH ×2 (07:07→15:56)
[2019-01-21] MEDS: 1/2 NS IV SOLUTION 1,000 ML IV SCH (07:11)
[2019-01-21] MEDS: POTASSIUM CL 10MEQ/50ML IVPB 50 ML IV SCH (07:13)
[2019-01-21] MEDS: MAGNESIUM 1 GM/100 ML IVPB 100 ML IV SCH (07:13)
[2019-01-21] MEDS: KCL 20 MEQ TAB (K-DUR) PO SCH (07:13)
[2019-01-21] MEDS: inSUlin ASPART (NovoLOG) 1 UNIT/0.01 ML (CHARGE PER UNIT) SQ SCH ×3 (07:14→18:09)
--- NOTE | 2019-01-21 07:23 | Progress Note-Hospitalist ---
Subjective HPI/CC On Admission Date Seen by Provider: Jan 21, 2019 Time Seen by Provider: 06:45 Subjective/Events-last exam Remains intubated Appears to be slightly improved MRSA was negative of the nares White count is 33,000 We will change PICC line to a central line likely due to upper extremity edema Focused Exam Lactate Level 01/21/19 06:55: Lactic Acid Level 0.87 Lactic Acid Level Objective Exam Vital Signs Vital Signs Date Time Temp Pulse Resp B/P (MAP) Pulse Ox O2 Delivery O2 Flow Rate FiO2 01/21/19 17:00 69 17 147/71 (96) 95 Mechanical Ventilator 50.00 01/21/19 16:00 50 01/21/19 15:50 97.3 Capillary Refill : Less Than 3 Seconds General Appearance: No Apparent Distress, Chronically ill, Other (intubated, sedated) HEENT: Other (ETT in place) Respiratory: Chest Non Tender, No Accessory Muscle Use, No Respiratory Distress , Decreased Breath Sounds, Wheezing (faint) Cardiovascular: Regular Rate, Rhythm, No Edema, No Murmur, Normal Peripheral Pulses Gastrointestinal: Normal Bowel Sounds, No Organomegaly, Soft Extremity: Normal Capillary Refill, Swelling (both arms) Skin: Ecchymosis (left forearm) Lymphatic: No Adenopathy Results/Procedures Lab Laboratory Tests 01/21/19 03:45 Patient resulted labs reviewed. Assessment/Plan Assessment and Plan Assess & Plan/Chief Complaint Assessment: [facility] Day # 5 Critically ill status Confusion due to metabolic encephalopathy Plan: ICU Very complex case Intubation Critical Care Critically Ill Patient Diagnosis/Problems Diagnosis/Problems (1) Ventilator dependence Status: Acute (2) Atrial fibrillation with rapid ventricular response Status: Acute (3) COPD exacerbation Status: Acute (4) Chronic kidney disease Status: Chronic Qualifiers: Chronic kidney disease stage: stage 3 (moderate) Qualified Codes: N18.3 - Chronic kidney disease, stage 3 (moderate) (5) Influenza B Status: Acute (6) Chronic pain Status: Chronic Qualifiers: Chronic pain type: chronic pain syndrome Qualified Codes: G89.4 - Chronic pain syndrome (7) Acute and chronic respiratory failure Status: Acute (8) Hypertension Status: Chronic Qualifiers: Hypertension type: essential hypertension Qualified Codes: I10 - Essential (primary) hypertension (9) Anxiety Status: Chronic (10) NSTEMI (non-ST elevated myocardial infarction) Status: Acute (11) Pneumonia Status: Acute Qualifiers: Pneumonia type: due to unspecified organism Laterality: unspecified laterality Lung location: unspecified part of lung Qualified Codes: J18.9 - Pneumonia, unspecified organism (12) COPD (chronic obstructive pulmonary disease) Status: Acute Qualifiers: COPD type: COPD with acute lower respiratory infection Qualified Codes: J44.0 - Chronic obstructive pulmonary disease with acute lower respiratory infection (13) DVT prophylaxis Status: Acute (14) Pain and swelling of left upper extremity Status: Acute (15) Confusion Status: Acute (16) Respiratory failure Status: Acute Qualifiers: Chronicity: acute on chronic Respiratory failure complication: unspecified whether with hypoxia or hypercapnia Qualified Codes: J96.20 - Acute and chronic respiratory failure, unspecified whether with hypoxia or hypercapnia Clinical Quality Measures DVT/VTE Risk/Contraindication: Risk Factor Score Per Nursin RFS Level Per Nursing on Admit: 4+=Very High YANET JAIMES DO Jan 21, 2019 07:23
--- NOTE | 2019-01-21 08:00 | Diagnostic Imaging Report ---
INDICATION: Mechanical ventilation, pneumonia, COPD. Myocardial infarction.. TECHNIQUE: Single view chest 3:20 AM. CORRELATION STUDY: 01/20/2019 FINDINGS: Endotracheal tube is superimposed over the trachea with tip above the erik. A right-sided central line is present, tip projects over the low SVC. Heart size and mediastinum are unremarkable. Lung jackson with chronic type changes. Mildly prominent interstitial markings. No infiltrate. IMPRESSION: 1. Generally stable chest demonstrates no acute abnormality. Stable support lines and tubes. Dictated by: Dictated on workstation # [id number]
[2019-01-21] MEDS: CEFEPIME INJECTION 2,000 MG in WATER (STERILE) FOR INJECTION 20 ML IV SCH (08:55)
[2019-01-21] MEDS: methylPREDNISolone 40 MG/ML (Solu-MEDROL) VIAL IV SCH ×2 (08:55→21:37)
[2019-01-21] MEDS: TICAGRELOR 90 MG TABLET (BRILINTA) PO SCH ×2 (08:56→22:20)
[2019-01-21] MEDS: risperiDONE 0.25 MG (RisperDAL) TAB PO SCH ×2 (08:56→22:20)
[2019-01-21] MEDS: ASPIRIN E.C. 81 MG (ECOTRIN) TAB PO SCH (08:56)
[2019-01-21] MEDS: PANTOPRAZOLE 40 MG (PROTONIX) VIAL IV SCH (08:56)
[2019-01-21] MEDS: FLUCONAZOLE 200 MG/100 ML 50 ML, EMPTY IV BAG (PVC) 1 EA IV SCH ×2 (08:56)
[2019-01-21] MEDS ORDERED: ENOXAPARIN 40 MG/0.4 ML (LOVENOX) SYR SC SCH (10:00)
[2019-01-21 11:01] LABS: BILIRUBIN,URINE NEGATIVE (NEGATIVE); CLARITY,URINE CLEAR; COLOR,URINE YELLOW; GLUCOSE, URINE (UA) NEGATIVE (NEGATIVE); KETONES,URINE NEGATIVE (NEGATIVE); LEUKOCYTE ESTERASE ,URINE 1+ (NEGATIVE); NITRITE,URINE NEGATIVE (NEGATIVE); PH,URINE 5 (5-9); PROTEIN,URINE 3+ (NEGATIVE); UROBILINOGEN,URINE NORMAL (NORMAL)
[2019-01-21 11:15] LABS: BACTERIA,URINE NEGATIVE /HPF
--- NOTE | 2019-01-21 12:33 | Progress Note-Cardiology ---
Cardiology SOAP Progress Note Subjective: Intubated and on mech vent. Not able to provide any history Objective: I&O/Vital Signs 01/21/19 01/21/19 01/21/19 01/21/19 00:32 01:00 01:00 02:00 Pulse 79 85 77 71 Resp 22 10 11 B/P (MAP) 115/71 (86) 125/68 (87) Pulse Ox 96 98 90 O2 Delivery Mechanical Ventilator Mechanical Ventilator O2 Flow Rate 50.00 50.00 FiO2 50 01/21/19 01/21/19 01/21/19 01/21/19 02:22 02:31 03:00 04:00 Pulse 72 95 78 Resp 22 11 B/P (MAP) 120/72 (88) Pulse Ox 90 94 96 O2 Delivery Mechanical Ventilator Mechanical Ventilator O2 Flow Rate 50.00 FiO2 50 50 01/21/19 01/21/19 01/21/19 01/21/19 04:00 04:00 04:11 05:00 Temp 96.4 Pulse 80 84 75 Resp 12 23 12 B/P (MAP) 104/69 (81) 136/64 (88) Pulse Ox 96 95 97 O2 Delivery Mechanical Ventilator Mechanical Ventilator O2 Flow Rate 50.00 50.00 FiO2 50 01/21/19 01/21/19 01/21/19 01/21/19 06:53 07:00 07:00 07:08 Pulse 73 80 80 66 Resp 28 11 B/P (MAP) 127/79 (95) 127/79 Pulse Ox 96 99 O2 Delivery Mechanical Ventilator O2 Flow Rate 50.00 FiO2 50 01/21/19 01/21/19 01/21/19 01/21/19 08:00 08:00 08:30 09:00 Temp 96.9 Pulse 80 75 Resp 8 8 B/P (MAP) 128/68 (88) 120/69 (86) Pulse Ox 99 96 98 O2 Delivery Mechanical Ventilator Mechanical Ventilator Mechanical Ventilator O2 Flow Rate 50.00 50.00 FiO2 50 01/21/19 01/21/19 01/21/19 01/21/19 10:00 10:14 11:00 11:39 Pulse 73 76 75 Resp 10 24 28 B/P (MAP) 130/60 (83) 112/70 (84) 119/70 Pulse Ox 97 93 96 O2 Delivery Mechanical Ventilator Mechanical Ventilator O2 Flow Rate 50.00 50.00 FiO2 50 01/21/19 01/21/19 01/21/19 11:45 12:00 12:00 Temp 97.5 Pulse 75 Resp 10 B/P (MAP) 124/60 (81) Pulse Ox 96 95 O2 Delivery Mechanical Ventilator Mechanical Ventilator O2 Flow Rate 50.00 FiO2 50 01/21/19 00:00 Intake Total 825 ml Output Total 1050 ml Balance -225 ml Weight (Pounds): 202 Weight (Ounces): 0.0 Weight (Calculated Kilograms): 91.215655 Constitutional: other (intubated/ventilated.) Respiratory: chest is bilaterally symmetric, other (good bilat air entry, diminished at the bases, basal coarse crackles) Cardiovascular: irregularly irregular, S1 and S2, systolic murmur (soft GARTH at card base) Gastrointestional: soft; No guarding, No rebound; audible bowel sounds, other ( large amount of bruising at Lovenox injection sites and slow bleeding from injections sites) Extremities: other (large amount of bruising at in both arms and forearms, considerable swelling, and slow bleeding from injections sites) Neurologic/Psychiatric: other (intubated/ventilated.) Skin: other (see under GI and Extremities exam) Results/Procedures: Labs Laboratory Tests 01/20/19 18:08: Glucometer 205H 01/20/19 23:44: Glucometer 209H 01/21/19 03:45: White Blood Count 33.1*H, Red Blood Count 2.55L, Hemoglobin 7.6L, Hematocrit 23L , Mean Corpuscular Volume 90, Mean Corpuscular Hemoglobin 30, Mean Corpuscular Hemoglobin Concent 33, Red Cell Distribution Width 15.4H, Platelet Count 186, Mean Platelet Volume 11.4H, Neutrophils (%) (Auto) 96H, Lymphocytes (%) (Auto) 1L, Monocytes (%) (Auto) 2, Eosinophils (%) (Auto) 0, Basophils (%) (Auto) 0, Neutrophils # (Auto) 31.9H, Lymphocytes # (Auto) 0.4L, Monocytes # (Auto) 0.8, Eosinophils # (Auto) 0.0, Basophils # (Auto) 0.0, Blood Gas Puncture Site R RAD , Blood Gas Patient Temperature 96.4, Arterial Blood pH 7.32*L, Arterial Blood Partial Pressure CO2 45, Arterial Blood Partial Pressure O2 66L, Arterial Blood HCO3 23, Arterial Blood Total CO2 24.1, Arterial Blood Oxygen Saturation 94, Arterial Blood Base Excess -2.8L, Siva Test YES-POS, Blood Gas Ventilator Setting YES, Blood Gas Inspired Oxygen 50%, Sodium Level 147H, Potassium Level 4.3, Chloride Level 116H, Carbon Dioxide Level 21, Anion Gap 10, Blood Urea Nitrogen 62H, Creatinine 1.95H, Estimat Glomerular Filtration Rate 34, BUN/ Creatinine Ratio 32, Glucose Level 185H, Calcium Level 7.7L, Phosphorus Level 4.2, Magnesium Level 2.4 01/21/19 06:55: Lactic Acid Level 0.87 01/21/19 10:55: Urine Color YELLOW, Urine Clarity CLEAR, Urine pH 5, Urine Specific [place] 1.020, Urine Protein 3+H, Urine Glucose (UA) NEGATIVE, Urine Ketones NEGATIVE, Urine Nitrite NEGATIVE, Urine Bilirubin NEGATIVE, Urine Urobilinogen NORMAL, Urine Leukocyte Esterase 1+H, Urine RBC (Auto) 2+H, Urine RBC 2-5H, Urine WBC NONE, Urine Squamous Epithelial Cells NONE, Urine Crystals NONE, Urine Bacteria NEGATIVE, Urine Casts NONE, Urine Mucus NEGATIVE, Urine Culture Indicated NO 01/21/19 11:53: Glucometer 198H Microbiology 01/13/19 Blood Culture - Final, Complete No growth 01/17/19 Gram Stain - Final, Complete 01/17/19 Sputum Culture - Final, Complete YEAST Laboratory Tests 01/20/19 03:40 01/21/19 03:45 A/P: Assessment: Type 2 resp failure, likely multifactorial (see below) Acute systolic CHF. LVEF 30-35% on echo of 01/13/19 and 45% on card cath of COPD exacerbated by Influenza B CAD. Non-STEMI treated with BILL to mid left circumflex artery on 01/18/19 Clinical bleeding diathesis (marked bruising, tense edema and slow bleeding at injection sites in abd wall and upper limbs) likely contributing to patient's marked anemia that is requiring blood transfusions. Bleeding diathesis likely due to ticagrelor plus aspirin plus high-dose enoxaparin combination. Enoxaparin reduced on 01/20/19 Possibility of small, non-occlusive thrombosis in R axillary vein, the site of PICC line, on u/s of 01/17/19 PAF Renal failure of unknown chronicity, probably acute, eGFR 34 on 01/12 and 38 on 01/20/19 Plan: * I spoke with his regarding his CV issues in detail and our treatment plan * Very complex management due to multisystem involvement. Critically ill. Prognosis guarded * Given his clinical bleeding diathesis (see exam above) and marked anemia requiring blood transfusions, we have changed enoxaparin from high-dose to DVT- prevention-dose * Continue DAPT * Monitor labs * Use diuretics as needed and as tolerated FLASH MCCLAIN MD FACP FACC CCDS Jan 21, 2019 12:33
[2019-01-21] MEDS: DILTIAZEM 125 MG/NS 100 ML IV SCH ×2 (14:23)
--- NOTE | 2019-01-21 16:25 | NUR ---
PT HAD PAUSE AND DROP IN HEART RATE INTO THE 30'S, THIS RN INTO ROOM. CARDIZEM PLACED ON HOLD AND PT ASSESSED. PT NOW SR WITH A RATE OF 64. EKG DONE. THIS RN NOTIFIED DR MCCLAIN AT THIS TIME. STATED OK TO LEAVE CARDIZEM OFF BUT RESUME IF PT CONVERTS BACK TO AFIB.
--- NOTE | 2019-01-21 20:40 | NUR ---
TIMELINE NOTE 2039 VENT ALARMING, PT PARTIALLY PULLED ETT, RT AND THIS RN TO ROOM. SATS 79%, TUBE REMOVED AND RT BAGGING PT 2041 DR CHIU NOTIFIED, STATED TO CALL ANESTHESIA TO RE INTUBATE. FORESTRY SUPPORT SPECIALIST CALLED ANESTHESIA TO COME 2100 ANESTHESIA HERE, PT BEING BAGGED WITH SATS AT 99% 2100 50 MG ROCURONIUM GIVEN IV BY ANESTHESIA 2103 INTUBATED WITH #8 ETT 24 CM AT THE TEETH, POSITIVE COLOR CHANGE, BILAT BREATH SOUNDS HEARD 2114 PCXR OBTAINED 2115 ATTEMPTED TO CALL TWO TIMES TO INFORM HER OF THE EVENT WITH NO ANSWER FROM HER
[2019-01-21] MEDS: HALOPERIDOL 5 MG/ML (HALDOL) AMP IV PRN (20:50)
[2019-01-21] MEDS: hydrALAZINE (APESOLINE) 20 MG/ML VIAL IV PRN (20:51)
--- NOTE | 2019-01-21 21:21 | Anesthesia-Procedure Note ---
Procedures/Interventions Procedure Start/Stop/Diagnosis Date of Procedure: Jan 21, 2019 Start Time: 21:00 Referring Physician: Mae Preprocedural Diagnosis: respiratory failure requiring mechanical ventilation Brief History Called by Proofing Machine Operator, reported patient had self extubated and currently SP02 60's. Upon arrival to ICU, RT was providing PPV with ambu and current SP02 99% and all other VSS. Brief history obtained from nursing staff. Propofol and Precedex gtt infusing per sedation protocol. Rocuronium 50mg IV given to facilitate intubation. DL x 1 with Man 2. Very poor dentition and some blood noted in oropharynx, suctioned and proceeded with uneventful intubation. 8.0 ETT placed with ease. +CO2 color change. Breath sounds noted bilaterally, but diminished and chest wall movement limited with ventilation. SP02 remained WNL throughout at 98-99%. Secured by RT @ 24 @ teeth/gumline. RT to resume vent settings per Dr. Wall's order. Stop Time: 21:05 KELLY MALLOY CRNA Jan 21, 2019 21:21
--- NOTE | 2019-01-21 21:24 | Diagnostic Imaging Report ---
INDICATION: Tube placement. TIME OF EXAM: 9:15 p.m. COMPARISON: Correlation made with prior study of earlier the same day. EXAMINATION: Single view of the chest was obtained. FINDINGS: Right upper extremity PICC line has tip overlying the right atrium. An endotracheal tube has tip above the level of the erik and projected just below the level of the clavicular heads. There is some infiltrate in the right and left base. This appears to be similar on the left and slightly increased on the right since earlier today. No effusion or pneumothorax is seen. IMPRESSION: 1. Line locations as described. 2. Bibasilar infiltrates, slightly increased on the right since examination earlier the same day. Dictated by: Dictated on workstation # [id number]
[2019-01-21] MEDS: ATORVASTATIN 40 MG (LIPITOR) TABLET PO SCH (22:20)
[2019-01-22] VITALS (27 sets, daily range): BP systolic 118–151; BP diastolic 61–99
[2019-01-22] MEDS: inSUlin ASPART (NovoLOG) 1 UNIT/0.01 ML (CHARGE PER UNIT) SQ SCH ×4 (00:30→16:00)
[2019-01-22] MEDS: PROPOFOL DRIP (ICU) 100 ML IV SCH ×4 (00:33→13:52)
[2019-01-22] MEDS: DEXMEDETOMIDINE INJECTION 1,000 MCG in NS (IVPB) 250 ML IV SCH ×3 (00:42→16:00)
[2019-01-22] MEDS: RT-ALBUTEROL/IPRATROPIUM 3 ML (DUONEB) VIAL INH SCH ×4 (02:25→13:56)
[2019-01-22] MEDS: 1/2 NS IV SOLUTION 1,000 ML IV SCH ×2 (02:44→13:59)
[2019-01-22 03:36] LABS: ABG BASE EXCESS -3.5 MMOL/L (-2.5-2.5); ABG OXYGEN SATURATION 89 % (94-100); ABG PCO2 50 MMHG (35-45); ABG PO2 59 MMHG (79-93); ABG TCO2 24.1 MMOL/L (21.0-31.0); BASOPHILS % (AUTO) 0 % (0-10); EOSINOPHILS % (AUTO) 0 % (0-10); HEMATOCRIT 25 % (40-54); HEMOGLOBIN 8.1 G/DL (13.3-17.7); LYMPHOCYTES # (AUTO) 0.5 X 10^3 (1.0-4.0); LYMPHOCYTES % (AUTO) 2 % (12-44); MEAN CORPUSCULAR HEMOGLOBIN 30 PG (25-34); MEAN CORPUSCULAR HGB CONC 32 G/DL (32-36); MEAN CORPUSCULAR VOLUME 92 FL (80-99); MEAN PLATELET VOLUME 11.6 FL (7.4-10.4); MONOCYTES # (AUTO) 1.1 X 10^3 (0.0-1.0); MONOCYTES % (AUTO) 3 % (0-12); NEUTROPHILS # (AUTO) 31.3 X 10^3 (1.8-7.8); NEUTROPHILS % (AUTO) 95 % (42-75); PLATELET COUNT 181 10^3/uL (130-400)
[2019-01-22 03:37] LABS: ALLENS TEST YES-POS; INSPIRED O2 70%; PATIENT TEMP 97.5; VENTILATOR YES
[2019-01-22 03:39] LABS: ABG PH 7.27 (7.37-7.43)
[2019-01-22 04:02] LABS: CALCIUM 7.7 MG/DL (8.5-10.1); CREATININE SERUM 1.98 MG/DL (0.60-1.30); MAGNESIUM 2.4 MG/DL (1.8-2.4); PHOSPHORUS 4.9 MG/DL (2.3-4.7); POTASSIUM 4.8 MMOL/L (3.6-5.0)
[2019-01-22] MEDS ORDERED: ANIDULAFUNGIN INJECTION 200 MG in NS (IVPB) 250 ML IV ONE (04:45)
[2019-01-22] MEDS ORDERED: MEROPENEM 1,000 MG in WATER (STERILE) FOR INJECTION 20 ML IV SCH (04:45)
[2019-01-22] MEDS: POTASSIUM CL 10MEQ/50ML IVPB 50 ML IV SCH (04:47)
[2019-01-22] MEDS: MAGNESIUM 1 GM/100 ML IVPB 100 ML IV SCH (04:48)
[2019-01-22] MEDS: KCL 20 MEQ TAB (K-DUR) PO SCH (04:48)
--- NOTE | 2019-01-22 05:00 | NUR ---
PT'S FAMILY HERE TO HAVE MEETING WITH DR CHIU. PT IS NOW A DNR WITH FAMILY TO DECIDE LATER ABOUT COMFORT CARE.
[2019-01-22] MEDS ORDERED: WATER (STERILE) FOR INJECTION 10 ML ONE (05:32)
[2019-01-22] MEDS ORDERED: MEROPENEM 500 MG VIAL (MERREM) IV ONE (05:32)
--- NOTE | 2019-01-22 05:42 | Pulmonary Progress Note ---
Subjective Time Seen by a Provider: 05:40 Subjective/Events-last exam Pt self extubated last night and went into respiratory distress. Pt was reintubated per anesthesia. Sepsis Event Evaluation Height, Weight, BMI Height: 5'10.00" Weight: 202lbs. 0.0oz. [id number]; 23.0 BMI Method:Stated Focused Exam Lactate Level 01/21/19 06:55: Lactic Acid Level 0.87 Exam Exam Vital Signs Date Time Temp Pulse Resp B/P (MAP) Pulse Ox O2 Delivery O2 Flow Rate FiO2 01/22/19 04:00 67 8 144/74 (97) 96 Mechanical Ventilator 65.00 01/22/19 04:00 94 Mechanical Ventilator 80 01/22/19 03:50 65 26 100 65 01/22/19 03:00 67 16 138/67 (90) 98 Mechanical Ventilator 70.00 01/22/19 02:49 67 17 132/66 (88) 95 Mechanical Ventilator 70.00 01/22/19 02:25 67 26 96 70 01/22/19 02:00 68 17 133/63 (86) 96 Mechanical Ventilator 80.00 01/22/19 01:00 71 13 141/69 (93) 95 Mechanical Ventilator 80.00 01/22/19 01:00 71 01/22/19 00:33 73 142/79 01/22/19 00:09 73 18 97 Mechanical Ventilator 80.00 01/22/19 00:00 94 Mechanical Ventilator 80 01/22/19 00:00 72 8 130/68 (88) 100 Mechanical Ventilator 100.00 01/21/19 23:00 76 12 139/71 (93) 99 Mechanical Ventilator 100.00 01/21/19 22:10 71 24 100 80 01/21/19 22:00 77 22 147/71 (96) 99 Mechanical Ventilator 100.00 01/21/19 21:42 80 22 91 Mechanical Ventilator 100.00 01/21/19 21:40 80 22 92 100 01/21/19 21:00 79 12 144/61 (88) 99 Mechanical Ventilator 55.00 01/21/19 20:53 179/74 01/21/19 20:10 70 14 95 Mechanical Ventilator 55.00 01/21/19 20:00 68 16 140/69 (92) 82 Mechanical Ventilator 45.00 01/21/19 20:00 67 26 92 55 01/21/19 20:00 94 Mechanical Ventilator 50 01/21/19 19:50 97.5 01/21/19 19:00 69 18 142/73 (96) 94 Mechanical Ventilator 45.00 01/21/19 19:00 69 01/21/19 18:43 69 22 95 45 01/21/19 18:00 70 19 142/73 (96) 95 Mechanical Ventilator 50.00 01/21/19 17:00 69 17 147/71 (96) 95 Mechanical Ventilator 50.00 01/21/19 16:00 81 10 133/77 (95) 98 Mechanical Ventilator 50.00 01/21/19 16:00 94 Mechanical Ventilator 50 01/21/19 15:56 122/67 01/21/19 15:50 97.3 01/21/19 15:00 61 9 116/73 (87) 94 Mechanical Ventilator 50.00 01/21/19 14:17 69 22 92 50 01/21/19 14:00 73 10 124/66 (85) 91 Mechanical Ventilator 50.00 01/21/19 13:00 63 11 119/72 (88) 92 Mechanical Ventilator 50.00 01/21/19 13:00 63 01/21/19 12:00 75 10 124/60 (81) 95 Mechanical Ventilator 50.00 01/21/19 12:00 96 Mechanical Ventilator 50 01/21/19 11:45 97.5 01/21/19 11:39 119/70 01/21/19 11:00 75 28 112/70 (84) 96 Mechanical Ventilator 50.00 01/21/19 10:14 76 24 93 50 01/21/19 10:00 73 10 130/60 (83) 97 Mechanical Ventilator 50.00 01/21/19 09:00 75 8 120/69 (86) 98 Mechanical Ventilator 50.00 01/21/19 08:30 96.9 01/21/19 08:00 96 Mechanical Ventilator 50 01/21/19 08:00 80 8 128/68 (88) 99 Mechanical Ventilator 50.00 01/21/19 07:08 66 127/79 01/21/19 07:00 80 11 127/79 (95) 99 Mechanical Ventilator 50.00 01/21/19 07:00 80 01/21/19 06:53 73 28 96 50 I & O 01/22/19 07:00 Intake Total 1165 ml Output Total 925 ml Balance 240 ml Height & Weight Height: 5'10.00" Weight: 202lbs. 0.0oz. 91.346858zc; 23.0 BMI Method:Stated General Appearance: Chronically ill, Moderate Distress, Other (intubated, sedated) HEENT: Other (ETT in place) Respiratory: Chest Non Tender, No Accessory Muscle Use, No Respiratory Distress , Decreased Breath Sounds, Wheezing (faint) Cardiovascular: Regular Rate, Rhythm, No Edema, No Murmur, Normal Peripheral Pulses Capillary Refill: Less Than 3 Seconds Gastrointestinal: normal bowel sounds, non tender, soft Extremity: Normal Capillary Refill, Swelling (both arms) Skin: Ecchymosis (left forearm) Lymphatic: No Adenopathy Results Lab Laboratory Tests 01/21/19 03:45 01/22/19 03:25 Assessment/Plan Assessment/Plan Acute respiratory failure- with worsening SOB -sedated on vent -Permissive hypercapnia -Increase peep to 10 -SVNs Q4 -Cefepime, diflucan -- CXR appears worse change to Zyvox, Merrem, and Eraxis. -Continue TF -solumedrol 40 Q12 Hypernatremia -Change IVF to 1/2 NS at 50cc/hr -250cc of free water per OG Q 6 Bilateral UE edema -Doppler of LUE questions axillary nonocclusive DVT - Lovenox decreased to PPX - will keep as PPX dose Anemia - monitor -Check occult stool -S/p transfusion 1 unit last week Systolic CHF -Cautious IVF ARF Acute on chronic renal failure - IVF -Monitor Metabolic acidosis -Check LA AFIB RVR - Cardizem -Cardiology following -Dr. Chatman is planning heart cath today Anemia -Monitor Influenza B - s/p treatment LUE pain edema - -Dr. Arias following [facility]- 30-35% -Monitor Hx of severe oxygen dependent COPD -SVNS, oxygen Metabolic encephalopathy - -Monitor -respiradol -Morphine, Leukocytosis- Probably secondary to out pt steroids - No fever -Continue Cefepime NSTEMI s/p cath with stent placement -Cardiology consulted -lovenox COPDAE/asthmaAE - pt does use 3liters at home. currently using 35% via BiPAP -Solumedrol -SVNS Q4, pulmicort BID Chronic renal failure -Monitor -IVF Pt is very critical with mulitorgan failure. Prognosis is poor. I discussed with family this AM about patient's current critical condition and prognosis. After discussion family they decided to make pt DNR. They are awaiting other family members to arrive and they will probably make pt comfort care only. 60min was spent with patient, family and medical team. Critical Care: Critically Ill Patient Time spent with patient (mins): 60 ALEXANDER CHIU DO Jan 22, 2019 05:42
[2019-01-22] MEDS ORDERED: MEROPENEM 500 MG in WATER (STERILE) FOR INJECTION 10 ML IV SCH ×2 (05:45→14:00)
[2019-01-22] MEDS: RT-BUDESONIDE NEBS 0.5 MG/2ML (PULMICORT) AMP INH SCH (06:56)
[2019-01-22] MEDS ORDERED: ROCURONIUM 10 MG/ML 5 ML SYRINGE IV ONE (07:40)
[2019-01-22] MEDS: TICAGRELOR 90 MG TABLET (BRILINTA) PO SCH (07:41)
[2019-01-22] MEDS: ASPIRIN E.C. 81 MG (ECOTRIN) TAB PO SCH (07:41)
[2019-01-22] MEDS: risperiDONE 0.25 MG (RisperDAL) TAB PO SCH (07:41)
[2019-01-22] MEDS: methylPREDNISolone 40 MG/ML (Solu-MEDROL) VIAL IV SCH (08:21)
[2019-01-22] MEDS: CEFEPIME INJECTION 2,000 MG in WATER (STERILE) FOR INJECTION 20 ML IV SCH (08:21)
[2019-01-22] MEDS: PANTOPRAZOLE 40 MG (PROTONIX) VIAL IV SCH (08:22)
[2019-01-22] MEDS: morphine INJ 4 MG/ML 1 ML (VIAL/SYRINGE) IVP PRN ×3 (08:22→17:50)
[2019-01-22] MEDS: LORazepam INJ 2 MG/ML (ATIVAN) VIAL IVP PRN ×3 (08:22→17:51)
[2019-01-22] MEDS ORDERED: ENOXAPARIN 40 MG/0.4 ML (LOVENOX) SYR SC SCH ×2 (09:00)
--- NOTE | 2019-01-22 09:31 | NUR ---
RENAL DOSED MEROPENEM TO 500MG IV Q 8 HOURS DUE TO ECRCL ~ 35-40
--- NOTE | 2019-01-22 11:49 | Progress Note (SOAP) ---
Subjective Subjective/Events-last exam Remains critically ill and intubated with hypoxic hypercapneic respiratory acidosis. Family discussed with Dr. Wall this am and plan to move toward comfort care when all his family has arrived. They deny questions at this time. Review of Systems Date Seen by Provider: Jan 22, 2019 Time Seen by Provider: 10:30 Focused Exam Lactate Level 01/21/19 06:55: Lactic Acid Level 0.87 Objective Exam Last Set of Vital Signs Vital Signs Date Time Temp Pulse Resp B/P (MAP) Pulse Ox O2 Delivery O2 Flow Rate FiO2 01/22/19 11:11 70 21 96 65 01/22/19 11:04 Mechanical Ventilator 01/22/19 11:00 138/73 (94) 65.00 01/22/19 04:00 97.4 Capillary Refill : Less Than 3 Seconds I&O Intake and Output 01/22/19 00:00 Intake Total 1525 ml Output Total 1100 ml Balance 425 ml IV Total 685 ml Tube Feeding 720 ml Other 120 ml Output Urine Total 1100 ml General: Other (intubated) Results/Procedures Lab Laboratory Tests 01/21/19 11:53: Glucometer 198H 01/21/19 18:02: Glucometer 178H 01/22/19 00:01: Glucometer 180H 01/22/19 03:25: White Blood Count 33.0*H, Red Blood Count 2.73L, Hemoglobin 8.1L, Hematocrit 25L , Mean Corpuscular Volume 92, Mean Corpuscular Hemoglobin 30, Mean Corpuscular Hemoglobin Concent 32, Red Cell Distribution Width 16.0H, Platelet Count 181, Mean Platelet Volume 11.6H, Neutrophils (%) (Auto) 95H, Lymphocytes (%) (Auto) 2L, Monocytes (%) (Auto) 3, Eosinophils (%) (Auto) 0, Basophils (%) (Auto) 0, Neutrophils # (Auto) 31.3H, Lymphocytes # (Auto) 0.5L, Monocytes # (Auto) 1.1H, Eosinophils # (Auto) 0.0, Basophils # (Auto) 0.0, Blood Gas Puncture Site R RAD , Blood Gas Patient Temperature 97.5, Arterial Blood pH 7.27*L, Arterial Blood Partial Pressure CO2 50H, Arterial Blood Partial Pressure O2 59L, Arterial Blood HCO3 23, Arterial Blood Total CO2 24.1, Arterial Blood Oxygen Saturation 89L, Arterial Blood Base Excess -3.5L, Siva Test YES-POS, Blood Gas Ventilator Setting YES, Blood Gas Inspired Oxygen 70%, Sodium Level 144, Potassium Level 4.8, Chloride Level 116H, Carbon Dioxide Level 19L, Anion Gap 9, Blood Urea Nitrogen 70H, Creatinine 1.98H, Estimat Glomerular Filtration Rate 34, BUN/ Creatinine Ratio 35, Glucose Level 159H, Calcium Level 7.7L, Phosphorus Level 4.9H, Magnesium Level 2.4, B-Type Natriuretic Peptide 111.4H Microbiology 01/13/19 Blood Culture - Final, Complete No growth 01/17/19 Gram Stain - Final, Complete 01/17/19 Sputum Culture - Final, Complete YEAST Radiology CXR 01/12: IMPRESSION: The coarse interstitial densities in the lung bases, the crowded bronchovascular markings in the right infrahilar region and the blunting of the right costophrenic angle are most likely chronic in nature. If previous exams are available they would be helpful for comparison. If there are no prior studies available for comparison and clinical concern regarding an acute abnormality persists, then a followup PA and lateral chest would be recommended. Assessment/Plan Assessment/Plan (1) Pneumonia Status: Acute Assessment & Plan: Possible, on cefepime and azithromycin. CXR with chronic findings, respiratory issues may be more related to COPD exac and influenza. Continue abx for now while cultures pending. Lactic acid neg. Does have leukocytosis but has been on steroids. 01/22- worsened clinical status over last several days, intubated and being managed by Dr. Wall, plan was to change antibiotics to meropenem and linezolid and Eraxis, but at this time family is discussing proceeding to comfort care per discussion with Dr. Wall. Qualifiers: Qualified Codes: J18.9 - Pneumonia, unspecified organism (2) NSTEMI (non-ST elevated myocardial infarction) Status: Acute Assessment & Plan: Persistently mildly elevated troponin, on therapeutic enoxaparin, Cardiology consulted. Cath on 01/18 with BILL to mid left circumflex (3) Hypertension Status: Chronic Assessment & Plan: Receiving IV treatment overnight on admission per Cardiology , appreciate recommendations. 01/14 after initial hypertension, having hypotension. Management per critical care and Cardiology. 01/22 on hydralazine prn hypertension Qualifiers: Qualified Codes: I10 - Essential (primary) hypertension (4) COPD exacerbation Status: Acute Assessment & Plan: On IV solumedrol, breathing treatments. Pulmonology consulted. 01/22 acute on chronic hypoxic hypercapneic respiratory failure after admission, now intubated, management per Dr. Wall (5) Influenza B Status: Resolved Assessment & Plan: Tamiflu renally dosed. May not be able to take oral due to marked agitation requiring sedation at times. Completed treatment (6) Acute and chronic respiratory failure Status: Acute Assessment & Plan: Pulmonology consulted, appreciate recommendations. Hypercapnea improved overnight with bipap, considering vapotherm this am. Unable to do CT for PE due to allergy and CKD, not stable for V/Q scan, on therapeutic lovenox. 01/14- improved somewhat this am, is on 4 lpm at time of my exam. 01/22 has had fluctuating course, but trended downhill overall and has developed acute on chronic respiratory failure requiring mechanical ventilation. Therapeutic lovenox decreased due to clinical evidence of bleeding diathesis. (7) Chronic kidney disease Status: Chronic Assessment & Plan: Stable, monitor, renally dose meds. Qualifiers: Qualified Codes: N18.3 - Chronic kidney disease, stage 3 (moderate) (8) Anxiety Status: Chronic (9) Acute systolic heart failure Status: Acute Assessment & Plan: EF 30-35% on echo 01/13, management per Cardiology. (10) Axillary vein thrombosis Status: Acute Assessment & Plan: Possible non-occlusive based on US findings, not on treatment dose anticoagulation due to clinical concern for bleeding diathesis. (11) Respiratory failure Status: Acute Qualifiers: Qualified Codes: J96.20 - Acute and chronic respiratory failure, unspecified whether with hypoxia or hypercapnia (12) Atrial fibrillation with rapid ventricular response Status: Acute Assessment & Plan: Management per Cardiology, was on cardizem drip for a period (13) DVT prophylaxis Status: Acute Assessment & Plan: Enoxaparin (14) Counseling regarding goals of care Assessment & Plan: 01/22- Dr. Wall discussed with family this am, is DNR and likely comfort care when family arrives. Clinical Quality Measures DVT/VTE Risk/Contraindication: Risk Factor Score Per Nursin RFS Level Per Nursing on Admit: 4+=Very High LOTTIE ARELLANO MD Jan 22, 2019 11:49
--- NOTE | 2019-01-22 15:09 | NUR ---
Initial visit: pt's sister and brother in law at the bedside. Sons and extended family in waiting room. Offered active listening and facilitated sharing of stories about the pt. Pt has family traveling from [place]. Once they arrive, plans are to extubate.
--- NOTE | 2019-01-22 15:38 | Cardiology Progress Note ---
Cardiology SOAP Progress Note Subjective: Intubated/ventilated. Objective: I&O/Vital Signs 01/22/19 01/22/19 01/22/19 01/22/19 03:50 04:00 04:00 04:00 Temp 97.4 Pulse 65 67 Resp 26 8 B/P (MAP) 144/74 (97) Pulse Ox 100 94 96 O2 Delivery Mechanical Ventilator Mechanical Ventilator O2 Flow Rate 65.00 FiO2 65 80 01/22/19 01/22/19 01/22/19 01/22/19 05:00 05:04 06:00 06:57 Pulse 64 62 64 67 Resp 8 9 22 B/P (MAP) 143/75 (97) 143/75 144/72 (96) Pulse Ox 95 90 94 O2 Delivery Mechanical Ventilator Mechanical Ventilator O2 Flow Rate 65.00 65.00 FiO2 65 01/22/19 01/22/19 01/22/19 01/22/19 07:00 07:00 08:00 08:00 Pulse 68 67 68 Resp 14 10 B/P (MAP) 135/72 (93) 138/74 (95) Pulse Ox 89 87 94 O2 Delivery Mechanical Ventilator Mechanical Ventilator Mechanical Ventilator O2 Flow Rate 65.00 65.00 FiO2 80 01/22/19 01/22/19 01/22/19 01/22/19 09:00 09:05 09:50 10:00 Pulse 73 73 72 Resp 22 22 21 B/P (MAP) 123/61 (81) 129/65 129/64 (85) Pulse Ox 90 92 96 O2 Delivery Mechanical Ventilator Mechanical Ventilator O2 Flow Rate 65.00 65.00 FiO2 65 01/22/19 01/22/19 01/22/19 01/22/19 11:00 11:04 11:11 12:00 Pulse 71 70 74 Resp 21 21 17 B/P (MAP) 138/73 (94) 146/72 (96) Pulse Ox 95 94 96 94 O2 Delivery Mechanical Ventilator Mechanical Ventilator Mechanical Ventilator O2 Flow Rate 65.00 65.00 FiO2 80 65 01/22/19 01/22/19 01/22/19 01/22/19 12:39 13:00 13:00 13:52 Pulse 76 77 76 Resp 22 11 B/P (MAP) 147/74 (98) 145/79 Pulse Ox 90 90 O2 Delivery Mechanical Ventilator O2 Flow Rate 65.00 FiO2 65 4/01/22/19 01/22/19 13:57 14:00 15:09 Pulse 78 78 Resp 22 9 B/P (MAP) 129/69 (89) Pulse Ox 96 94 94 O2 Delivery Mechanical Ventilator Mechanical Ventilator O2 Flow Rate 65.00 FiO2 65 80 01/22/19 00:00 Intake Total 845 ml Output Total 590 ml Balance 255 ml Weight (Pounds): 204 Weight (Ounces): 0.0 Weight (Calculated Kilograms): 92.688883 Constitutional: No appears stated age, No AAO x 3, No apparent distress, No PERRL, No well-developed, No well-nourished; other (intubated/ventilated.) Respiratory: chest is bilaterally symmetric, other (good bilat air entry, diminished at the bases, basal coarse crackles) Cardiovascular: No regular rate-rhythm; irregularly irregular; No extra beats, No parasternal heave is noted, No JVD, No edema, No bradycardia, No tachycardia , No point of maximal impulse, No cardiac thrills are palpable; S1 and S2; No gallop/S3, No gallop/S4, No diastolic murmur; systolic murmur (soft GARTH at card base); No friction rub, No click, No other Gastrointestional: No tender; soft; No round, No distended, No pulsatile mass, No organomegaly, No guarding, No rebound, No tenderness, No hernia, No mass; audible bowel sounds; No abnormal bowel sounds, No abdominal bruits, No spleenomegaly; other (large amount of bruising at Lovenox injection sites and slow bleeding from injections sites) Extremities: other (large amount of bruising at in both arms and forearms, considerable swelling, and slow bleeding from injections sites) Neurologic/Psychiatric: No hatch boss II-XII nml as tested, No no motor/sensory deficits, No alert, No normal mood/affect, No oriented x 3, No abnormal cerebellar tests, No abnormal hatch boss II-XII, No abnormal gait, No aphasia, No EOM palsy, No facial droop, No motor weakness, No sensory deficit, No depressed affect, No disoriented x 3; other (intubated/ventilated.); No grossly intact, No power is 5/5 both on sides Skin: other (see under GI and Extremities exam) Results/Procedures: Labs Laboratory Tests 01/21/19 18:02: Glucometer 178H 01/22/19 00:01: Glucometer 180H 01/22/19 03:25: White Blood Count 33.0*H, Red Blood Count 2.73L, Hemoglobin 8.1L, Hematocrit 25L , Mean Corpuscular Volume 92, Mean Corpuscular Hemoglobin 30, Mean Corpuscular Hemoglobin Concent 32, Red Cell Distribution Width 16.0H, Platelet Count 181, Mean Platelet Volume 11.6H, Neutrophils (%) (Auto) 95H, Lymphocytes (%) (Auto) 2L, Monocytes (%) (Auto) 3, Eosinophils (%) (Auto) 0, Basophils (%) (Auto) 0, Neutrophils # (Auto) 31.3H, Lymphocytes # (Auto) 0.5L, Monocytes # (Auto) 1.1H, Eosinophils # (Auto) 0.0, Basophils # (Auto) 0.0, Blood Gas Puncture Site R RAD , Blood Gas Patient Temperature 97.5, Arterial Blood pH 7.27*L, Arterial Blood Partial Pressure CO2 50H, Arterial Blood Partial Pressure O2 59L, Arterial Blood HCO3 23, Arterial Blood Total CO2 24.1, Arterial Blood Oxygen Saturation 89L, Arterial Blood Base Excess -3.5L, Siva Test YES-POS, Blood Gas Ventilator Setting YES, Blood Gas Inspired Oxygen 70%, Sodium Level 144, Potassium Level 4.8, Chloride Level 116H, Carbon Dioxide Level 19L, Anion Gap 9, Blood Urea Nitrogen 70H, Creatinine 1.98H, Estimat Glomerular Filtration Rate 34, BUN/ Creatinine Ratio 35, Glucose Level 159H, Calcium Level 7.7L, Phosphorus Level 4.9H, Magnesium Level 2.4, B-Type Natriuretic Peptide 111.4H 01/22/19 11:53: Lab Scanned Report Transfusion Reaction Form Microbiology 01/21/19 Blood Culture - Preliminary, Resulted No growth 01/17/19 Gram Stain - Final, Complete 01/17/19 Sputum Culture - Final, Complete YEAST A/P: Assessment/Dx: Non-STEMI, Acute systolic congestive heart failure, Persistent atrial fibrillation with rapid ventricular rate, Possible right axillary DVT, Severe respiratory failure, hypercarbic Severe COPD, Possible pneumonia, COPD exacerbation, Acute kidney injury, DIC Plan: Non-STEMI, continue aspirin, Brilinta and Lovenox. Lipitor. Improving troponin. Coronary angiography done 01/18/2019 with severe mid left circumflex artery stenosis. Stenosis severity 70-80 percent. PCI with single drug- eluting stent done. Continue Brilinta. Possibility of right axillary DVT. Lovenox dose changed to DVT prophylaxis dose. Atrial fibrillation with rapid ventricular response Acute systolic congestive heart failure, improved significantly. Elevated BNP. Echocardiogram done 01/13/2019 shows an EF of 30-35 percent. Dilated LV with mild pulmonary hypertension. Improved LV function on left heart catheterization done yesterday had 01/18/2019. Severe respiratory failure, hypercarbic, likely multifactorial due to acute systolic congestive heart failure, severe COPD, influenza. Defer to Dr. Wall. Severe COPD, Possible pneumonia, COPD exacerbation, Acute kidney injury, worsening. DIC, Lovenox dose decreased to DVT prophylaxis. Critically ill patient with poor prognosis. Thank you for your consultation. Please call me if you have any questions. Cynthia Chatman MD, FACP, FACC, FSCAI, FHRS, CCDS Interventional Cardiology Cardiac Electrophysiology Vascular Medicine and Endovascular Interventions Focused Exam Lactate Level 01/21/19 06:55: Lactic Acid Level 0.87 Viji CHATMAN MD Jan 22, 2019 15:38
--- NOTE | 2019-01-22 16:47 | NUR ---
Follow up visit with family in waiting room. Moved comfort cart with beverages and cookies to waiting area as family. Family still anticipated to arrive. I reminded staff to contact the police guard boom conveyor operator at [facility] and notified [employer] Developer Aneesh Leach of high probability of call back.
--- NOTE | 2019-01-22 17:25 | NUR ---
, along with other family members stated that they were ready to take pt off vent and make him comfort care. Respiratory notified. Sedation turned off at this time as well.
[2019-01-22] MEDS ORDERED: PROMETHAZINE INJ 25 MG/ML (PHENERGAN) AMP IVP PRN (17:45)
[2019-01-22] MEDS ORDERED: ARTIFICAL TEARS 0.4 ML UNIT DOSE (REFRESH PLUS) OU PRN (17:45)
[2019-01-22] MEDS ORDERED: SALIVA STIMULANT MOUTH SPRAY (BIOTENE) 1.5 OZ MM PRN (17:45)
[2019-01-22] MEDS ORDERED: ACETAMINOPHEN 650 MG SUPP (TYLENOL) PR PRN (17:45)
[2019-01-22] MEDS ORDERED: BISACODYL 10 MG SUPP (DULCOLAX) PR PRN (17:45)
--- NOTE | 2019-01-22 17:50 | NUR ---
pt extubated to Room Air, family at bedside.
--- NOTE | 2019-01-22 17:50 | NUR ---
EXTUBATED BY THIS RT AND PLACED ON ROOM AIR.
[2019-01-22] MEDS ORDERED: SCOPOLAMINE 1.5 MG (TRANSDERM-SCOP) PATCH TOP SCH (18:00)
--- NOTE | 2019-01-22 18:00 | NUR ---
pt family concerned with his struggle to breathe. This RN informed family that Dr. Wall would be called for instruction to make pt comfortable.
--- NOTE | 2019-01-22 18:06 | NUR ---
1750-post extubation, pt given morphine and ativan for air hunger and pain control. At this time, pt has increased air hunger and increased grimacing on touch. Family trying to hold pt hand and pt grimacing at their touch. Dr. Wall called for additional medication request for pt comfort. This RN will give 2 mg of Dilaudid to try to get pt comfortable and decrease air hunger.
[2019-01-22] MEDS ORDERED: HYDROmorphone 2 MG/ML VIAL (DILAUDID) ONE (18:09)
[2019-01-22] MEDS ORDERED: HYDROmorphone 2 MG/ML VIAL (DILAUDID) IV PRN (18:15)
--- NOTE | 2019-01-22 18:38 | NUR ---
Pt much more comfortable at this time with decreased air hunger and is without grimace when touched. Will continue to monitor pt for signs of air hunger or discomfort.
--- NOTE | 2019-01-22 18:46 | NUR ---
Pt is without heart beat and without respiration at this time. Confirmed with PATRICE Noguera. Dr. Wall and Dr. Ruiz notified.
[2019-01-23] MEDS ORDERED: ANIDULAFUNGIN INJECTION 100 MG in NS (IVPB) 100 ML IV SCH (09:00)
--- NOTE | 2019-01-23 20:22 | Discharge Summary ---
Diagnosis/Chief Complaint Date of Admission Jan 12, 2019 at 20:40 Date of Discharge Jan 22, 2019 at 20:30 Admission Diagnosis Admission Diagnosis Pneumonia NSTEMI Influenza B COPD exacerbation CHF exacerbation Acute on chronic respiratory failure Chronic kidney disease Discharge Diagnosis Patient decompensated throughout stay and family felt he would not want further aggressive interventions, comfort care pursued and he on 01/13 pm. Problems/Diagnosis: (1) Pneumonia Assessment & Plan: Possible, on cefepime and azithromycin. CXR with chronic findings, respiratory issues may be more related to COPD exac and influenza. Continue abx for now while cultures pending. Lactic acid neg. Does have leukocytosis but has been on steroids. 01/22- worsened clinical status over last several days, intubated and being managed by Dr. Wall, plan was to change antibiotics to meropenem and linezolid and Eraxis, but at this time family is discussing proceeding to comfort care per discussion with Dr. Wall. Qualifiers: Qualified Codes: J18.9 - Pneumonia, unspecified organism Status: Acute (2) NSTEMI (non-ST elevated myocardial infarction) Assessment & Plan: Persistently mildly elevated troponin, on therapeutic enoxaparin, Cardiology consulted. Cath on 01/18 with BILL to mid left circumflex Status: Acute (3) Hypertension Assessment & Plan: Receiving IV treatment overnight on admission per Cardiology , appreciate recommendations. 01/14 after initial hypertension, having hypotension. Management per critical care and Cardiology. 01/22 on hydralazine prn hypertension Qualifiers: Qualified Codes: I10 - Essential (primary) hypertension Status: Chronic (4) COPD exacerbation Assessment & Plan: On IV solumedrol, breathing treatments. Pulmonology consulted. 01/22 acute on chronic hypoxic hypercapneic respiratory failure after admission, now intubated, management per Dr. Wall Status: Acute (5) Influenza B Assessment & Plan: Tamiflu renally dosed. May not be able to take oral due to marked agitation requiring sedation at times. Completed treatment Status: Resolved Resolution Date/Time: 01/22/19 @ 11:53 (6) Acute and chronic respiratory failure Assessment & Plan: Pulmonology consulted, appreciate recommendations. Hypercapnea improved overnight with bipap, considering vapotherm this am. Unable to do CT for PE due to allergy and CKD, not stable for V/Q scan, on therapeutic lovenox. 01/14- improved somewhat this am, is on 4 lpm at time of my exam. 01/22 has had fluctuating course, but trended downhill overall and has developed acute on chronic respiratory failure requiring mechanical ventilation. Therapeutic lovenox decreased due to clinical evidence of bleeding diathesis. Status: Acute (7) Chronic kidney disease Assessment & Plan: Stable, monitor, renally dose meds. Qualifiers: Qualified Codes: N18.3 - Chronic kidney disease, stage 3 (moderate) Status: Chronic (8) Anxiety Status: Chronic (9) Acute systolic heart failure Assessment & Plan: EF 30-35% on echo 01/13, management per Cardiology. Status: Acute (10) Axillary vein thrombosis Assessment & Plan: Possible non-occlusive based on US findings, not on treatment dose anticoagulation due to clinical concern for bleeding diathesis. Status: Acute (11) Respiratory failure Qualifiers: Qualified Codes: J96.20 - Acute and chronic respiratory failure, unspecified whether with hypoxia or hypercapnia Status: Acute (12) Atrial fibrillation with rapid ventricular response Assessment & Plan: Management per Cardiology, was on cardizem drip for a period Status: Acute (13) Counseling regarding goals of care Assessment & Plan: 01/22- Dr. Wall discussed with family this am, is DNR and likely comfort care when family arrives. Family proceeded with comfort care orders and patient evening of 01/22. Chief Complaint/HPI Chief Complaint/HPI Pt irritable and unwilling to provide much history. States he came to the hospital "because he loves it so much". Per ER report, was sent to ER by primary due to concern about elevated troponin. Review of clinic chart reveals that patient was seen in a different ER for shortness of breath and diagnosed with pneumonia and started on levofloxacin. When he followed up with his primary Dr. Franco, he was feeling better, but labs were repeated due to abnormalities noted in ER including elevated troponin. The clinic labs revealed persistently elevated troponin and so he was instructed to come to the ER. In our ER he was found to still have elevated troponin and was initially stable on his home 3 lpm supplemental oxygen, but concern still remained about pneumonia, so he was admitted on antibiotics with plan for further cardiac work up when stable from infection standpoint. Last night, he became markedly hypertensive and combative as well as with significantly worsening hypoxia, nearing complete respiratory failure and intubation, requiring bipap. Cardiology managed blood pressure with IV meds and I consulted Pulmonology. This morning, he states he wants to be DNR/DNI, his is not here at the time of my exam. He wants his urinary catheter out. Discharge Summary-Simple/Stand Consultations Discharge Physical Examination Allergies: Coded Allergies: iodine (Verified Adverse Reaction, Unknown, 01/12/19) Uncoded Allergies: IV contrast (Allergy, Intermediate, Hives, 01/18/19) Vitals & I&Os Vital Sign - Last 12Hours Date Time Temp Pulse Resp B/P (MAP) Pulse Ox O2 Delivery O2 Flow Rate FiO2 01/22/19 17:01 72 22 96 65 01/22/19 17:00 132/71 (91) Mechanical Ventilator 65.00 01/22/19 04:00 97.4 Intake and Output 01/23/19 00:00 Intake Total 0 ml Output Total 350 ml Balance -350 ml Hospital Course See final discharge diagnosis. Radiology Reviewed CXR 01/12: IMPRESSION: The coarse interstitial densities in the lung bases, the crowded bronchovascular markings in the right infrahilar region and the blunting of the right costophrenic angle are most likely chronic in nature. If previous exams are available they would be helpful for comparison. If there are no prior studies available for comparison and clinical concern regarding an acute abnormality persists, then a followup PA and lateral chest would be recommended. Discharge Condition at discharge Clinical Quality Measures DVT/VTE Risk/Contraindication: Risk Factor Score Per Nursin RFS Level Per Nursing on Admit: 4+=Very High Comfort Measures/ Type of Care: Comfort Measures Date of : Jan 22, 2019 LOTTIE ARELLANO MD Jan 23, 2019 20:21
[2019-01-25] MEDS ORDERED: LINEZOLID IVPB 300 ML IV SCH (09:00)
[2019-01-25] MEDS ORDERED: SCOPOLAMINE PATCH REMOVAL TP SCH (17:59)
== END 2019-01-22 20:30 | disposition expired | DRG 246 ==
LOC: ER 18:16 → ICU 20:40 → UNDOADMIN 20:40
PROVIDERS: ADMIT Family Medicine; ATTEND Family Medicine
PROC: 5A1955Z Respiratory Ventilation, Greater than 96 Consecutive Hours (ICD-10-PCS; 2019-01-17)
PROC: 0BH17EZ Insertion of Endotracheal Airway into Trachea, Via Natural or Artificial Opening (ICD-10-PCS; 2019-01-17)
PROC: 027034Z Dilation of Coronary Artery, One Artery with Drug-eluting Intraluminal Device, Percutaneous Approach (ICD-10-PCS; principal; 2019-01-18)
PROC: 4A023N7 Measurement of Cardiac Sampling and Pressure, Left Heart, Percutaneous Approach (ICD-10-PCS; 2019-01-18)
PROC: B2151ZZ Fluoroscopy of Left Heart using Low Osmolar Contrast (ICD-10-PCS; 2019-01-18)
PROC: B2111ZZ Fluoroscopy of Multiple Coronary Arteries using Low Osmolar Contrast (ICD-10-PCS; 2019-01-18)
DX: I21.4 Non-ST elevation (NSTEMI) myocardial infarction (principal); I13.0 Hypertensive heart and chronic kidney disease with heart failure and stage 1 through stage 4 chronic kidney disease, or unspecified chronic kidney disease; I50.21 Acute systolic (congestive) heart failure; N18.3 Chronic kidney disease, stage 3 (moderate); G93.41 Metabolic encephalopathy; J96.02 Acute respiratory failure with hypercapnia; J10.00 Influenza due to other identified influenza virus with unspecified type of pneumonia; Z51.5 Encounter for palliative care; Z66 Do not resuscitate; J18.9 Pneumonia, unspecified organism; J44.1 Chronic obstructive pulmonary disease with (acute) exacerbation; J44.0 Chronic obstructive pulmonary disease with (acute) lower respiratory infection; N17.9 Acute kidney failure, unspecified; E87.1 Hypo-osmolality and hyponatremia; I82.A11 Acute embolism and thrombosis of right axillary vein; I47.1 Supraventricular tachycardia; I25.10 Atherosclerotic heart disease of native coronary artery without angina pectoris; I48.0 Paroxysmal atrial fibrillation; E87.6 Hypokalemia; E83.42 Hypomagnesemia; D69.9 Hemorrhagic condition, unspecified; M79.81 Nontraumatic hematoma of soft tissue; D64.9 Anemia, unspecified; E87.70 Fluid overload, unspecified; F17.210 Nicotine dependence, cigarettes, uncomplicated; F41.9 Anxiety disorder, unspecified; I95.2 Hypotension due to drugs; T46.5X5A Adverse effect of other antihypertensive drugs, initial encounter; Z91.041 Radiographic dye allergy status; Z99.81 Dependence on supplemental oxygen
CPT/HCPCS: 36415; 36569; 36600; 71045; 76937; 80048; 80053; 81000; 82330; 82550; 82805; 82962; 83605; 83735; 83874; 83880; 84100; 84478; 84484; 85007; 85018; 85025; 85027; 85347; 85610; 85730; 86850; 86900; 86901; 86920; 87040; 87070; 87081; 87205; 87804; 93005; 93041; 93306; 93458; 93931; 94002; 94003; 94640; 94660; 94799; 96361; 96372; 96374; 96375